=== PATIENT | female | born 1930 | race Caucasian/White ===

== ENCOUNTER 2016-12-23 07:02 | Inpatient (IN) | payer OTHER, MEDICARE ==
[~2016-12-23] VITALS: Ht 152.4 cm; Wt 78.3 kg
[2016-12-23] VITALS (16 sets, daily range): BP systolic 104–164; BP diastolic 56–82; PULSE 80–117; RESP 13–20; TEMP 98.7–102.2; O2SAT 93–100
[~2016-12-23 07:02] MED LIST: AMIT10TA13 PO; AMLO5TAB96 PO; ASPI81 PO; FISH1000 PO; LASI20TA PO; LEVO.05 PO; LOSA25TA31 PO; MELO15TA2 PO; NAPR500 PO; ROSU10 PO; TAB-TAB PO
[2016-12-23] MEDS ORDERED: ONDANSETRON HCL 4 MG/2 ML VIAL IV PUSH ONE (07:15)
[2016-12-23] MEDS ORDERED: MORPHINE SULFATE 2 MG/ML INJ IV PUSH ONE (07:15)
--- NOTE | 2016-12-23 07:26 | PD ---
HPI Chief Complaint: Edema Time Seen by Provider: 07:06 Travel History International Travel<30 days: No Contact w/Intl Traveler<30days: No Traveled to known affect area: No History of Present Illness HPI 86 years old female complains of bilateral lower extremity pain and swelling. Patient states that the symptoms started about several months ago and got worse today. Patient was recently diagnosed with brachial plexitis and was put on prednisone. Patient still taking prednisone as directed. Patient has history hypertension status post mitral valve replacement and hypothyroidism. Patient status post pacemaker placement. Patient also complains of bruising to the arms and legs recently. Patient denies any recent injury. Patient's daughter states that patient started having pain on the upper extremity since September 2016. Patient was admitted to the hospital in [place] at that time. Patient was diagnosed with brachial plexitis. Patient is allergic to dye and has pacemaker placement and patient only had CT without contrast of the brain in the spine. Patient has been on decreasing prednisone dose since then. Patient started on prednisone 10 mg by mouth daily now. Patient has been seen by neurologist Dr. 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 Patient had blood test done recently by Dr. Marquez and Dr. Munoz. Results are not available. 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) Tobacco Use: No Substance Use: No Allergies-Medications (Allergen,Severity, Reaction): Coded Allergies: Iodinated Contrast- Oral and IV Dye (Unverified Allergy, Severe, EYES SWELLING, 12/23/16) iodine (Unverified Allergy, Severe, EYES SWELLING, 12/23/16) potassium iodide (Unverified Allergy, Severe, EYES SWELLING, 12/23/16) povidone-iodine (Unverified Allergy, Severe, EYES SWELLING, 12/23/16) sodium iodide (Unverified Allergy, Severe, EYES SWELLING, 12/23/16) sodium iodide (Unverified Allergy, Severe, EYES SWELLING, 12/23/16) Uncoded Allergies: IVP DYE (Allergy, Unknown, EYES SWELLING, 05/17/08) Reported Meds & Prescriptions Reported Meds & Active Scripts Active Reported Oxycodone (Oxycodone HCl) 5 Mg Cap 5 Mg PO Q6H PRN Lidocaine Patch 12 HR (Lidocaine) 5 % Patch 1 Patch TOPICAL DAILY Remove patch after 12 hours Tramadol (Tramadol HCl) 50 Mg Tab 50 Mg PO Q12HR PRN Protonix (Pantoprazole Sodium) 40 Mg Tab 40 Mg PO BID Gabapentin 300 Mg Cap 300 Mg PO TID Prednisone 10 Mg Tab 10 Mg PO DAILY Fish Oil + D3 (Fish Oil-Cholecalciferol) 1,200-1,000 Mg-Unit Cap 1 Cap PO DAILY Amitriptyline (Amitriptyline HCl) 10 Mg Tab 10 Mg PO HS Furosemide 20 Mg Tab 20 Mg PO DAILY Rosuvastatin (Rosuvastatin Calcium) 10 Mg Tab 10 Mg PO HS Levothyroxine (Levothyroxine Sodium) 50 Mcg Tab 50 Mcg PO DAILY Losartan (Losartan Potassium) 50 Mg Tab 50 Mg PO DAILY Vitamin D-1000 (Cholecalciferol) 1,000 Unit Tab 1,000 Units PO DAILY Aspirin 325 Mg Tab 325 Mg PO DAILY Metoprolol Tartrate 100 Mg Tab 100 Mg PO BID Review of Systems General / Constitutional: No: Fever Eyes: No: Visual changes HENT: No: Headaches Cardiovascular: No: Chest Pain or Discomfort Respiratory: No: Shortness of Breath Gastrointestinal: No: Abdominal Pain Genitourinary: No: Dysuria Musculoskeletal: Positive: Edema, Pain Skin: No Rash Neurologic: No: Weakness Psychiatric: No: Depression Endocrine: No: Polydipsia Hematologic/Lymphatic: No: Easy Bruising Physical Exam Narrative GENERAL: Well-nourished, well-developed patient. SKIN: Focused skin assessment warm/dry. HEAD: Normocephalic. EYES: No scleral icterus. No injection or drainage. NECK: Supple, trachea midline. No JVD or lymphadenopathy. CARDIOVASCULAR: Regular rate and rhythm without murmurs, gallops, or rubs. RESPIRATORY: Breath sounds equal bilaterally. No accessory muscle use. Few rhonchi at the bases. GASTROINTESTINAL: Abdomen soft, non-tender, nondistended. MUSCULOSKELETAL: No cyanosis, or edema. BACK: Nontender without obvious deformity. No CVA tenderness. Neurologic exam: Patient's awake and alert oriented to person. Patient's hearing impaired. Patient moves all extremities well. No obvious focal neurological deficit. Data Data Last Documented VS Vital Signs Date Time Temp Pulse Resp B/P (MAP) Pulse Ox O2 Delivery O2 Flow Rate FiO2 12/23/16 09:56 108 20 136/64 (88) 98 Nasal Cannula 3.00 12/23/16 07:13 102.2 Orders Orders Electrocardiogram (12/23/16 07:13) Complete Blood Count With Diff (12/23/16 07:13) Comprehensive Metabolic Panel (12/23/16 07:13) B-Type Natriuretic Peptide (12/23/16 07:13) Prothrombin Time / Inr (Pt) (12/23/16 07:13) Act Partial Throm Time (Ptt) (12/23/16 07:13) Urinalysis - C+S If Indicated (12/23/16 07:13) Thyroid Stimulating Hormone (12/23/16 07:13) Chest, Single Ap (12/23/16 07:13) Iv Access Insert/Monitor (12/23/16 07:13) Ecg Monitoring (12/23/16 07:13) Oximetry (12/23/16 07:13) Us Leg Venous Doppler Bilat (12/23/16 07:13) Morphine Inj (Morphine Inj) (12/23/16 07:15) Ondansetron Inj (Zofran Inj) (12/23/16 07:15) Blood Culture (12/23/16 07:16) Lactic Acid Sepsis Protocol (12/23/16 07:16) Urinary Catheter Insert/Apply (12/23/16 07:21) W[place]gren Sedimentation Rate (12/23/16 07:32) Creatine Kinase (Cpk) (12/23/16 07:20) C-Reactive Protein (Crp) (12/23/16 07:20) Urine Culture (12/23/16 07:25) Dextrose 5% In Wate... W/Amiodarone Inj (12/23/16 08:59) Sodium Chloride 0.9% Flush (Ns Flush) (12/23/16 09:00) Vital Signs (Adult) Q15MX4,Q4H (12/23/16 08:59) Cardiac Rhythm TAY.Q8H (12/23/16 08:59) Notify Dr: Other (12/23/16 08:59) Diltiazem Inj (Cardizem Inj) (12/23/16 09:00) Amiodarone Inj (Cordarone Inj) (12/23/16 09:03) Electrocardiogram (12/23/16 08:52) Labs Laboratory Tests Test 12/23/16 07:20 12/23/16 07:25 White Blood Count 16.3 TH/MM3 Red Blood Count 3.36 MIL/MM3 Hemoglobin 9.8 GM/DL Hematocrit 29.9 % Mean Corpuscular Volume 89.1 FL Mean Corpuscular Hemoglobin 29.3 PG Mean Corpuscular Hemoglobin Concent 32.9 % Red Cell Distribution Width 16.6 % Platelet Count 160 TH/MM3 Mean Platelet Volume 7.7 FL Neutrophils (%) (Auto) 70.1 % Lymphocytes (%) (Auto) 22.0 % Monocytes (%) (Auto) 6.5 % Eosinophils (%) (Auto) 0.9 % Basophils (%) (Auto) 0.5 % Neutrophils # (Auto) 11.4 TH/MM3 Lymphocytes # (Auto) 3.6 TH/MM3 Monocytes # (Auto) 1.1 TH/MM3 Eosinophils # (Auto) 0.1 TH/MM3 Basophils # (Auto) 0.1 TH/MM3 CBC Comment DIFF FINAL Differential Comment Erythrocyte Sedimentation Rate 56 mm/hr Prothrombin Time 11.3 SEC Prothromb Time International Ratio 1.0 RATIO Activated Partial Thromboplast Time 26.1 SEC Blood Urea Nitrogen 13 MG/DL Creatinine 0.95 MG/DL Random Glucose 90 MG/DL Total Protein 6.5 GM/DL Albumin 2.8 GM/DL Calcium Level 8.4 MG/DL Alkaline Phosphatase 64 U/L Aspartate Amino Transf (AST/SGOT) 33 U/L Alanine Aminotransferase (ALT/SGPT) 21 U/L Total Bilirubin 0.7 MG/DL Sodium Level 133 MEQ/L Potassium Level 3.6 MEQ/L Chloride Level 93 MEQ/L Carbon Dioxide Level 33.3 MEQ/L Anion Gap 7 MEQ/L Estimat Glomerular Filtration Rate 56 ML/MIN Lactic Acid Level 1.3 mmol/L Total Creatine Kinase 50 U/L C-Reactive Protein 13.00 MG/DL B-Type Natriuretic Peptide 769 PG/ML Thyroid Stimulating Hormone 3rd Gen 6.330 uIU/ML Urine Color YELLOW Urine Turbidity HAZY Urine pH 5.5 Urine Specific [place] 1.011 Urine Protein TRACE mg/dL Urine Glucose (UA) NEG mg/dL Urine Ketones NEG mg/dL Urine Occult Blood NEG Urine Nitrite NEG Urine Bilirubin NEG Urine Urobilinogen 8.0 MG/DL Urine Leukocyte Esterase SMALL Urine RBC 2 /hpf Urine Amorphous Sediment RARE Urine Bacteria MOD /hpf Microscopic Urinalysis Comment CATH-CULTURE IND MDM Medical Decision Making Medical Screen Exam Complete: Yes Emergency Medical Condition: Yes Interpretation(s) Last Impressions Lower Extremity Ultrasound 12/23/16 0713 Signed Impressions: Service Date/Time: Friday, December 23, 2016 08:02 - CONCLUSION: Normal examination. No evidence of DVT Aneesh Bello MD 11:42 AM. Chest x-ray shows mild compensated cardiomegaly. CBC WBC 16.3. Hemoglobin 9.8 hematocrit 29.9. 70 neutrophil. Sedimentation rate 56. Sodium 133. Bicarbonate 33.3. Left Tri[place] 1.3. CK normal. C-reactive protein 13. BNP 769. TSH 6.33. UA small leukocyte. Negative for WBC. Differential Diagnosis Differential diagnosis including dependent edema, DVT, CHF, pneumonia, UTI, sepsis. Narrative Course 86-year-old female with increased pain and swelling lower extremity. Patient on steroids for brachial plexitis. Patient also has chronic extremity pain unknown etiology. Patient on statin. Patient is febrile today. Lasix 40 mg IV. Oxycodone 5/325, one tablet by mouth given. Diagnosis Primary Impression: CHF (congestive heart failure) Qualified Codes: I50.9 - Heart failure, unspecified Additional Impressions: Fever Qualified Codes: R50.9 - Fever, unspecified Tachycardia Admitting Information Admitting Physician Requests: Admit Guilherme Reyes MD Dec 23, 2016 07:26
[2016-12-23] MEDS ORDERED: METO100T PO (07:35)
[2016-12-23] MEDS ORDERED: GABA300C5 PO (07:35)
[2016-12-23] MEDS ORDERED: FURO20TA PO (07:35)
[2016-12-23] MEDS ORDERED: FISHCAP4 PO (07:35)
[2016-12-23] MEDS ORDERED: TRAM50TA PO (07:35)
[2016-12-23] MEDS ORDERED: ASPI325T PO (07:35)
[2016-12-23] MEDS ORDERED: ROSU1TAB6 PO (07:35)
[2016-12-23] MEDS ORDERED: LIDO1PAD52 TOPICAL (07:35)
[2016-12-23] MEDS ORDERED: LEVO50TA4 PO (07:35)
[2016-12-23] MEDS ORDERED: VITA1000 PO (07:35)
[2016-12-23] MEDS ORDERED: PRED10 PO (07:35)
[2016-12-23] MEDS ORDERED: LOSA50TA PO (07:35)
[2016-12-23] MEDS ORDERED: OXYC1CAP PO (07:35)
[2016-12-23] MEDS ORDERED: PROT40TA PO (07:35)
[2016-12-23] MEDS ORDERED: AMIT10TA6 PO (07:35)
[2016-12-23 07:59] LABS: APTT (PATIENT) 26.1 SEC (24.3-30.1); PROTHROMBIN TIME - PATIENT 11.3 SEC (9.8-11.6)
[2016-12-23 08:01] LABS: ALT (GPT) 21 U/L (10-53)
[2016-12-23 08:07] LABS: AUTOMATED NEUTROPHIL # 11.4 TH/MM3 (1.8-7.7); BASOPHIL # 0.1 TH/MM3 (0-0.2); BASOPHIL % 0.5 % (0.0-2.0); EOSINOPHIL # 0.1 TH/MM3 (0-0.4); EOSINOPHIL % 0.9 % (0.0-4.0); HEMATOCRIT 29.9 % (35.0-46.0); HEMO FLAGS DIFF FINAL; LYMPHOCYTE # 3.6 TH/MM3 (1.0-4.8); MEAN CELL VOLUME 89.1 FL (80.0-100.0); MEAN CORPUSCULAR HEMOGLOBIN 29.3 PG (27.0-34.0); MEAN CORPUSCULAR HGB CONC 32.9 % (32.0-36.0); MONO % 6.5 % (0.0-8.0); NEUT % 70.1 % (16.0-70.0); PLATELET COUNT 160 TH/MM3 (150-450); RED BLOOD COUNT 3.36 MIL/MM3 (4.00-5.30); RED CELL DISTRIBUTION WIDTH 16.6 % (11.6-17.2); WHITE BLOOD COUNT 16.3 TH/MM3 (4.0-11.0)
[2016-12-23 08:17] LABS: ALKALINE PHOSPHATASE 64 U/L (45-117); TOTAL BILIRUBIN ADULT 0.7 MG/DL (0.2-1.0)
[2016-12-23 08:23] LABS: BACTERIA, URINE MOD /hpf; BLOOD, URINE NEG (NEG); COMMENT (UR) CATH-CULTURE IND; CULTURE IF INDICATED CATH CULTURE IND; GLUCOSE,URINE NEG (NEG); KETONE, URINE NEG (NEG); NITRITE,URINE NEG (NEG); PH, URINE 5.5 (5.0-8.5); URINE COLOR YELLOW (YELLW/STRAW)
[2016-12-23 08:26] LABS: ANION GAP 7 MEQ/L (5-15); AST (GOT) 33 U/L (15-37); BICARBONATE 33.3 MEQ/L (21.0-32.0); BLOOD UREA NITROGEN 13 MG/DL (7-18); CHLORIDE 93 MEQ/L (98-107); GLOMERULAR FILTRATION RATE 56 ML/MIN (>89); SODIUM (NA) 133 MEQ/L (136-145)
[2016-12-23 08:27] LABS: CREATINE KINASE 50 U/L (26-192); POTASSIUM 3.6 MEQ/L (3.5-5.1)
--- NOTE | 2016-12-23 08:51 | RADRPT ---
EXAM DATE/TIME: 12/23/2016 08:02 [facility] COMPARISON: No previous studies available for comparison. INDICATIONS : Bilateral leg pain and swelling. MEDICAL HISTORY : Hypertension. Hypercholesterolemia. SURGICAL HISTORY : Appendectomy. Left and right shoulder surgery. Right knee surgery. ENCOUNTER: Initial ACUITY: 3 months PAIN SCORE: 8/10 LOCATION: Bilateral leg. TECHNIQUE: Venous ultrasound of the left and right leg was performed from the inguinal ligament to the proximal calf. Real-time, color Doppler and spectral tracing, compression and augmentation techniques were us ed. FINDINGS: RIGHT LEG: There is normal compressibility of the deep venous system from the inguinal region to the proximal ca lf. No echogenic clot is seen in the lumen of the common femoral, femoral, popliteal, and posterior tibial veins. There is a normal response of the venous system to proximal and distal augmentation an d respiration. LEFT LEG: There is normal compressibility of the deep venous system from the inguinal region to the proximal ca lf. No echogenic clot is seen in the lumen of the common femoral, femoral, popliteal, and posterior tibial veins. There is a normal response of the venous system to proximal and distal augmentation an d respiration. CONCLUSION: Normal examination. No evidence of DVT Aneesh Bello MD on December 23, 2016 at 8:48 Board Certified Radiologist. This report was verified electronically.
[2016-12-23] MEDS ORDERED: AMIODARONE INJ 150 MG in DEXTROSE 5% IN WATER 100ML INJ 97 ML IV ONE ×2 (08:59)
[2016-12-23] MEDS ORDERED: SODIUM CHLORIDE 0.9% FLUSH 10 ML FLUSH IVF PRN (09:00)
[2016-12-23] MEDS ORDERED: DILTIAZEM INJ 125 MG in SODIUM CHLORIDE 0.9% INJ 100 ML IV PRN (09:00)
[2016-12-23] MEDS ORDERED: AMIODARONE HCL 150 MG/3 ML VIAL ONE (09:03)
--- NOTE | 2016-12-23 09:30 | RADRPT ---
EXAM DATE/TIME: 12/23/2016 09:06 [facility] COMPARISON: No previous studies available for comparison. INDICATIONS : Shortness of breath. MEDICAL HISTORY : Hypertension. Hypercholesterolemia. SURGICAL HISTORY : Pacemaker. CABG. Appendectomy. Left and right shoulder surgery. Right knee surgery. ENCOUNTER: Initial ACUITY: 1 day PAIN SCORE: 0/10 LOCATION: Bilateral chest FINDINGS: Pacer implanted on the left. Sternal wires from previous bypass are noted. Mild compensated cardiom egaly is evident. Evidence for previous shoulder arthroplasty is noted. CONCLUSION: Pacer, mild compensated cardiomegaly. Negative for pneumothorax. Homero Guerra MD FACR on December 23, 2016 at 9:16 Board Certified Radiologist. This report was verified electronically.
[2016-12-23] MEDS ORDERED: oxyCODONE/ACETAMINOPHEN 5 MG/325 MG TAB PO ONE (11:45)
[2016-12-23] MEDS ORDERED: ACETAMINOPHEN 325 MG TAB PO PRN ×2 (12:45)
[2016-12-23] MEDS ORDERED: SODIUM CHLORIDE 0.9% FLUSH 10 ML FLUSH IV FLUSH PRN (12:45)
[2016-12-23] MEDS ORDERED: NALOXONE HCL 0.4 MG/ML AMP IV PUSH PRN (12:45)
[2016-12-23] MEDS ORDERED: RESP: ALBUTEROL 2.5 MG/IPRATROPIUM 0.5 MG NEB (PRN) NEB (12:45)
[2016-12-23] MEDS ORDERED: MAGNESIUM HYDROXIDE SUSP 30 ML CUP PO PRN (12:45)
[2016-12-23] MEDS ORDERED: ONDANSETRON HCL 4 MG/2 ML VIAL IVP PRN (12:45)
--- NOTE | 2016-12-23 13:34 | HHI.HP ---
[facility] Service [facility] Primary Care Physician Ramona Munoz MD Admission Diagnosis fever. Tachycardia. CHF. PolyMyositis Diagnoses: Chief Complaint: Bilateral lower extremity pain, restlessness, fever Travel History International Travel<30 Days: No Contact w/Intl Traveler <30 Da: No Traveled to Known Affected Are: No Sepsis Criteria SIRS Criteria (2 or more): Temp > 100.9 or < 96.8, Heart rate over 90, WBC > 07478, < 4000 or > 10% bands Sepsis Criteria (SIRS+source): Infect source susp/known Criteria Outcome: Meets SIRS criteria, Meets sepsis criteria History of Present Illness Written by Hector Oconnell, acting as scribe for Dr. Gray on 12/23/16 at 13: 35. Patient is an 86-year-old female with primary medical history of hypothyroidism , HTN, CHF who came in due to hospital brought in by daughter secondary to complaints of bilateral lower extremity pain, swelling, decline in mental status. Patient is a poor historian. Daughter at the bedside providing much of the history. Patient was diagnosed in September, in [place] for brachial plexitis were in she was placed on prednisone. She started on prednisone 40 mg and now is tapered to 10 mg daily. She was last seen by Dr. 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 She was worked up for Lyme's disease and nerve test. Her gabapentin was decreased in dose secondary to drowsiness. However her daughter noted that she has increasing bilateral lower extremity swelling and pain also she noted increase restlessness of her extremities that she brought her to the hospital. She is usually very mobile unable to walk using her walker however yesterday and today patient is unable to stand up and walk. Patient came to the ED febrile at 102.2, HR 117, white count 16.3, CRP 13.0, hyponatremic 133. Awake and alert able to follow commands. Denies SOB/ dyspnea. Denies chest pain, palpitations. Denies fevers, chills, n/v/d. Denies dysuria. Daughter reports foul odor urine. Review of Systems ROS Limitations: Poor Historian Past Family Social History Past Medical History Hypothyroidism HTN HLD A. fib Past Surgical History Permanent pacemaker Status post mitral valve repair in 2014 Appendectomy Hysterectomy 2 shoulder surgery Right knee replacement Reported Medications Reported Meds & Active Scripts Active Reported Oxycodone (Oxycodone HCl) 5 Mg Cap 5 Mg PO Q6H PRN Lidocaine Patch 12 HR (Lidocaine) 5 % Patch 1 Patch TOPICAL DAILY Remove patch after 12 hours Tramadol (Tramadol HCl) 50 Mg Tab 50 Mg PO Q12HR PRN Protonix (Pantoprazole Sodium) 40 Mg Tab 40 Mg PO BID Gabapentin 300 Mg Cap 300 Mg PO TID Prednisone 10 Mg Tab 10 Mg PO DAILY Fish Oil + D3 (Fish Oil-Cholecalciferol) 1,200-1,000 Mg-Unit Cap 1 Cap PO DAILY Amitriptyline (Amitriptyline HCl) 10 Mg Tab 10 Mg PO HS Furosemide 20 Mg Tab 20 Mg PO DAILY Rosuvastatin (Rosuvastatin Calcium) 10 Mg Tab 10 Mg PO HS Levothyroxine (Levothyroxine Sodium) 50 Mcg Tab 50 Mcg PO DAILY Losartan (Losartan Potassium) 50 Mg Tab 50 Mg PO DAILY Vitamin D-1000 (Cholecalciferol) 1,000 Unit Tab 1,000 Units PO DAILY Aspirin 325 Mg Tab 325 Mg PO DAILY Metoprolol Tartrate 100 Mg Tab 100 Mg PO BID Allergies: Coded Allergies: Iodinated Contrast- Oral and IV Dye (Unverified Allergy, Severe, EYES SWELLING, 12/23/16) iodine (Unverified Allergy, Severe, EYES SWELLING, 12/23/16) potassium iodide (Unverified Allergy, Severe, EYES SWELLING, 12/23/16) povidone-iodine (Unverified Allergy, Severe, EYES SWELLING, 12/23/16) sodium iodide (Unverified Allergy, Severe, EYES SWELLING, 12/23/16) sodium iodide (Unverified Allergy, Severe, EYES SWELLING, 12/23/16) Uncoded Allergies: IVP DYE (Allergy, Unknown, EYES SWELLING, 05/17/08) Active Ordered Medications Current Medications Medications (Trade) Dose Ordered Sig/Yuly Route Start Time Stop Time Status Last Admin Diltiazem HCl 125 mg/Sodium Chloride 125 ml @ 5 mls/hr TITRATE PRN IV 12/23/16 09:00 12/23/16 09:27 (NS Flush) 2 ml UNSCH PRN IV FLUSH 12/23/16 12:45 (NS Flush) 2 ml BID IV FLUSH 12/23/16 21:00 (Tylenol) 650 mg Q4H PRN PO 12/23/16 12:45 (Zofran Inj) 4 mg Q6H PRN IVP 12/23/16 12:45 (Tylenol) 650 mg Q6H PRN PO 12/23/16 12:45 (Narcan Inj) 0.4 mg UNSCH PRN IV PUSH 12/23/16 12:45 (Milk Of Magnesia Liq) 30 ml Q12H PRN PO 12/23/16 12:45 (Duoneb Neb) 1 ampule Q2HR NEB PRN NEB 12/23/16 12:45 Piperacillin Sod/ Tazobactam Sod 50 ml @ 100 mls/hr Q8H IV 12/23/16 15:00 Pharmacy Profile Note 0 ml @ 0 mls/hr UNSCH OTHER 12/23/16 13:45 (Lactinex) 1 tab Q12HR PO 12/23/16 21:00 (Elavil) 10 mg HS PO 12/23/16 21:00 (Aspirin) 325 mg DAILY PO 12/24/16 09:00 (Neurontin) 300 mg TID PO 12/23/16 18:00 (Synthroid) 50 mcg DAILY@0600 PO 12/24/16 06:00 (Cozaar) 50 mg DAILY PO 12/24/16 09:00 (Lopressor) 100 mg BID PO 12/23/16 21:00 (Roxicodone) 5 mg Q6H PRN PO 12/23/16 13:45 (Protonix) 40 mg BID PO 12/23/16 21:00 (Deltasone) 10 mg DAILY PO 12/24/16 09:00 (Lasix) 20 mg DAILY PO 12/24/16 09:00 Vancomycin HCl 1250 mg/Sodium Chloride 262.5 ml @ 262.5 mls/ hr ONCE ONCE IV 12/23/16 16:00 12/23/16 16:59 Family History Father had a stroke Mother had Alzheimer's disease Social History Denies alcohol use Denies tobacco use. Denies illicit drug use Physical Exam Vital Signs Vital Signs Date Time Temp Pulse Resp B/P (MAP) Pulse Ox O2 Delivery O2 Flow Rate FiO2 12/23/16 13:09 90 18 117/56 (76) 97 Room Air 12/23/16 09:56 108 20 136/64 (88) 98 Nasal Cannula 3.00 12/23/16 09:41 106 20 121/59 (79) 96 Nasal Cannula 3.00 12/23/16 09:27 94 135/60 12/23/16 09:25 91 20 135/60 (85) 96 Nasal Cannula 3.00 12/23/16 09:23 90 18 104/60 (75) 96 Nasal Cannula 3.00 12/23/16 09:20 155 104/60 12/23/16 08:30 102 20 164/82 (109) 96 Nasal Cannula 3.00 12/23/16 07:23 93 Nasal Cannula 12/23/16 07:13 102.2 117 20 153/75 (101) 93 Nasal Cannula 3.00 Physical Exam GENERAL: This is an obese, well-developed patient, in no apparent distress. SKIN: Warm and dry. Multiple hyperpigmented lesion BUE and BLE. HEAD: Normocephalic. EYES: Pupils equal round and reactive. Extraocular motions intact. No scleral icterus. No injection or drainage. ENT: Nose without bleeding. Throat without erythema. Uvula midline. Airway patent. NECK: Trachea midline. Supple. Garcia face. CARDIOVASCULAR: Regular rate and rhythm without murmurs, gallops, or rubs. RESPIRATORY: Clear to auscultation. Breath sounds equal bilaterally. No wheezes , rales, or rhonchi. GASTROINTESTINAL: Abdomen soft, non-tender, nondistended. No hepato-splenomegaly , or palpable masses. No guarding. MUSCULOSKELETAL: Extremities without clubbing, cyanosis, +2 BLE edema. Pulses palpable. NEUROLOGICAL: Awake and alert. Motor and sensory grossly within normal limits. Normal speech. Laboratory Laboratory Tests Test 12/23/16 07:20 12/23/16 07:25 White Blood Count 16.3 Red Blood Count 3.36 Hemoglobin 9.8 Hematocrit 29.9 Mean Corpuscular Volume 89.1 Mean Corpuscular Hemoglobin 29.3 Mean Corpuscular Hemoglobin Concent 32.9 Red Cell Distribution Width 16.6 Platelet Count 160 Mean Platelet Volume 7.7 Neutrophils (%) (Auto) 70.1 Lymphocytes (%) (Auto) 22.0 Monocytes (%) (Auto) 6.5 Eosinophils (%) (Auto) 0.9 Basophils (%) (Auto) 0.5 Neutrophils # (Auto) 11.4 Lymphocytes # (Auto) 3.6 Monocytes # (Auto) 1.1 Eosinophils # (Auto) 0.1 Basophils # (Auto) 0.1 CBC Comment DIFF FINAL Differential Comment Erythrocyte Sedimentation Rate 56 Prothrombin Time 11.3 Prothromb Time International Ratio 1.0 Activated Partial Thromboplast Time 26.1 Blood Urea Nitrogen 13 Creatinine 0.95 Random Glucose 90 Total Protein 6.5 Albumin 2.8 Calcium Level 8.4 Alkaline Phosphatase 64 Aspartate Amino Transf (AST/SGOT) 33 Alanine Aminotransferase (ALT/SGPT) 21 Total Bilirubin 0.7 Sodium Level 133 Potassium Level 3.6 Chloride Level 93 Carbon Dioxide Level 33.3 Anion Gap 7 Estimat Glomerular Filtration Rate 56 Lactic Acid Level 1.3 Total Creatine Kinase 50 C-Reactive Protein 13.00 B-Type Natriuretic Peptide 769 Thyroid Stimulating Hormone 3rd Gen 6.330 Urine Color YELLOW Urine Turbidity HAZY Urine pH 5.5 Urine Specific [place] 1.011 Urine Protein TRACE Urine Glucose (UA) NEG Urine Ketones NEG Urine Occult Blood NEG Urine Nitrite NEG Urine Bilirubin NEG Urine Urobilinogen 8.0 Urine Leukocyte Esterase SMALL Urine RBC 2 Urine Amorphous Sediment RARE Urine Bacteria MOD Microscopic Urinalysis Comment CATH-CULTURE IND Date/Time Source Procedure Growth Status 12/23/16 07:18 Blood Peripheral Aerobic Blood Culture Pending Received 12/23/16 07:18 Blood Peripheral Anaerobic Blood Culture Pending Received 12/23/16 07:25 Urine Catheterized Urine Urine Culture Pending Received Result Diagram: 12/23/[id number]/[id number]/[id number] Imaging Last Impressions Lower Extremity Ultrasound 12/23/16712 Signed Impressions: Service Date/Time: Friday, December 23, 2016 08:02 - CONCLUSION: Normal examination. No evidence of DVT Aneesh Bello MD Chest X-Ray 12/23/16712 Signed Impressions: Service Date/Time: Friday, December 23, 2016 09:06 - CONCLUSION: Pacer, mild compensated cardiomegaly. Negative for pneumothorax. Homero Guerra MD FACR Caprini VTE Risk Assessment Caprini VTE Risk Assessment: Mod/High Risk (score >= 2) Caprini Risk Assessment Model Point Value = 1 Point Value = 2 Point Value = 3 Point Value = 5 Age 41-60 Minor surgery BMI > 25 kg/m2 Swollen legs Varicose veins or History of unexplained or recurrent spontaneous Oral contraceptives or hormone replacement Sepsis (< 1 month) Serious lung disease, including pneumonia (< 1 month) Abnormal pulmonary function Acute myocardial infarction Congestive heart failure (< 1 month) History of inflammatory bowel disease Medical patient at bed rest Age 61-74 Arthroscopic surgery Major open surgery (> 45 min) Laparoscopic surgery (> 45 min) Malignancy Confined to bed (> 72 hours) Immobilizing plaster cast Central venous access Age >= 75 History of VTE Family history of VTE Factor V Leiden Prothrombin [id number] Lupus anticoagulant Anticardiolipin antibodies Elevated serum homocysteine Heparin-induced thrombocytopenia Other congenital or acquired thrombophilia Stroke (< 1 month) Elective arthroplasty Hip, pelvis, or leg fracture Acute spinal cord injury (< 1 month) Prophylaxis Regimen Total Risk Factor Score Risk Level Prophylaxis Regimen 0-1 Low Early ambulation 2 Moderate Order ONE of the following: *Sequential Compression Device (SCD) *Heparin 5000 units SQ BID 3-4 Higher Order ONE of the following medications: *Heparin 5000 units SQ TID *Enoxaparin/Lovenox 40 mg SQ daily (WT < 150 kg, CrCl > 30 mL/min) *Enoxaparin/Lovenox 30 mg SQ daily (WT < 150 kg, CrCl > 10-29 mL/min) *Enoxaparin/Lovenox 30 mg SQ BID (WT < 150 kg, CrCl > 30 mL/min) AND/OR *Sequential Compression Device (SCD) 5 or more Highest Order ONE of the following medications: *Heparin 5000 units SQ TID (Preferred with Epidurals) *Enoxaparin/Lovenox 40 mg SQ daily (WT < 150 kg, CrCl > 30 mL/min) *Enoxaparin/Lovenox 30 mg SQ daily (WT < 150 kg, CrCl > 10-29 mL/min) *Enoxaparin/Lovenox 30 mg SQ BID (WT < 150 kg, CrCl > 30 mL/min) AND *Sequential Compression Device (SCD) Assessment and Plan Problem List: (1) Sepsis ICD Code: A41.9 - Sepsis, unspecified organism (2) UTI (urinary tract infection) ICD Code: N39.0 - Urinary tract infection, site not specified (3) CHF (congestive heart failure) ICD Code: I50.9 - Heart failure, unspecified Status: Acute Assessment and Plan Patient is an 86-year-old female with primary medical history of hypothyroidism , HTN, CHF who came in due to hospital brought in by daughter secondary to complaints of bilateral lower extremity pain, swelling, decline in mental status. Sepsis, severe UTI - Febrile 102.2, heart rate 112, WBC 16.3 - UA positive, cultures pending follow results - ESR 56, CRP 13 - Check Blood cultures, check lactic acid - Start IV vancomycin and Zosyn - Patient has been on prolonged use of prednisone, immunocompromised. 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 Marquez for Lyme's disease, nerve tests, other autoimmune disorders - ESR 56, CRP 13 - Continue prednisone 10 mg daily, gabapentin, pain management with morphine sulfate IV, oxycodone - Consult neurology for further recommendations A. fib with RVR - Reported to have heart rate of 200s - Patient has a permanent pacemaker and was interrogated. Interrogation was within normal - Patient was given IV amiodarone, started on Cardizem drip titrate to heart <100 - Consult cardiology for further evaluation CHF, systolic, acute exacerbation Bilateral lower extremity edema - Chest x-ray showed pacer, mild compensated cardiomegaly. Negative for pneumothorax - BNP 769 - Lasix PO - 2-D echo ordered HTN HLD - Continue metoprolol 100 mg twice a day, losartan 50 mg daily - Monitor BP trend Hypothyroidism - Continued home medications levothyroxine Rule out DVT Bilateral lower extremity edema, pain Generalized weakness, unable to ambulate - Doppler studies of bilateral lower extremity normal examination evidence of DVT. - Physical therapy eval and treat Consult case management for assistance in discharge planning DVT prop SCDs GI prop pantoprazole This note was transcribed by jaron Oconnell. I, Dr. Diomedes Gray personally performed the history, physical exam, and medical decision making; and confirmed the accuracy of the information in the transcribed note. Authenticated by Dr. Diomedes Gray on 12/23/16 at 13:35 Code Status Full code Discussed Condition With Patient, nursing, M.D. attending Physician Certification 2 Midnight Certification Type: Admission for Inpatient Services Order for Inpatient Services The services are ordered in accordance with Medicare regulations or non- Medicare payer requirements, as applicable. In the case of services not specified as inpatient-only, they are appropriately provided as inpatient services in accordance with the 2-midnight benchmark. Estimated LOS (days): 3 days is the estimated time the patient will need to remain in the hospital, assuming treatment plan goals are met and no additional complications. Post-Hospital Plan: Not yet determined Problem Qualifiers (1) CHF (congestive heart failure): Qualified Codes: I50.9 - Heart failure, unspecified Hector Ramírez Dec 23, 2016 13:34 Diomedes Gray MD Dec 23, 2016 13:35
[2016-12-23] MEDS ORDERED: Vancomycin Consult Pharmacy 1 EA OTHER SCH (13:45)
[2016-12-23] MEDS ORDERED: VANCOMYCIN INJ 1,250 MG in SODIUM CHLOR 0.9% 250 ML INJ 250 ML IV ONE (16:00)
[2016-12-23] MEDS ORDERED: VANCOMYCIN INJ 1,000 MG in SODIUM CHLOR 0.9% 250 ML INJ 250 ML IV SCH (16:00)
[2016-12-23] MEDS: PIPERACIL-TAZO 3.375 GM PREMIX 50 ML IV SCH ×2 (16:10→23:17)
--- NOTE | 2016-12-23 16:11 | EKG ---
Date Performed: 12/23/2016 Time Performed: 07:59:48 PTAGE: 86 years EKG: SINUS TACHYCARDIA MARKED LEFT AXIS DEVIATION LEFT BUNDLE BRANCH BLOCK Compared to previous tracing, Left bundle branch block is now present and the rate is faster ABNORMAL ECG PREVIOUS TRACING : 03/28/2005 10.52 DOCTOR: Rick Sánchez Interpretating Date/Time 12/23/2016 16:10:18
--- NOTE | 2016-12-23 16:12 | EKG ---
Date Performed: 12/23/2016 Time Performed: 08:52:50 PTAGE: 86 years EKG: ATRIAL FIBRILLATION WITH RAPID VENTRICULAR RESPONSE MARKED LEFT AXIS DEVIATION INTRAVENTRIC ULAR CONDUCTION DELAY Compared to previous tracing atrial fibrillation With rapid ventricular respons e has replaced Sinus rhythm ABNORMAL ECG PREVIOUS TRACING : 12/23/2016 07.59 DOCTOR: Rick Sánchez Interpretating Date/Time 12/23/2016 16:10:45
--- NOTE | 2016-12-23 17:34 | ECHRPT ---
Indication: afib/flutter CONCLUSIONS Technically difficult study. Normal left ventricular size. Moderate concentric left ventricular hypertrophy. The left ventricular systolic function is [id number] reduced with an estimated ejection fra ction in the range of 35-40%. The left ventricle is not well visualized. The aortic root and proximal ascending aorta are not well visualized. No mitral valve stenosis. No mitral valve regurgitation. Normally functioning mitral valve bioprosthesis. The mitral valve area by Pressure Halftime Method is 2.2 cm. The aortic valve is not well visualized. Mild thickening of the aortic valve leaflets. Trace aortic valve regurgitation. Aortic valve mean gradient is 14 mmHg. Aortic valve area is 0.35 cm. Moderate to severe aortic valve stenosis. Severely reduced aortic valve area with low gradient aort ic stenosis which may be secondary to cardiomyopathy. BP: / HR: Rhythm: MEASUREMENTS (Male / Female) Normal Values Technical Quality:Technically difficult study 2D ECHO LV Diastolic Diameter PLAX 3.3 cm 4.2 - 5.9 / 3.9 - 5.3 cm LV Systolic Diameter PLAX 2.7 cm IVS Diastolic Thickness 2.8 cm 0.6 - 1.0 / 0.6 - 0.9 cm LVPW Diastolic Thickness 1.1 cm 0.6 - 1.0 / 0.6 - 0.9 cm LV Relative Wall Thickness 1.2 RV Internal Dim ED PLAX 1.9 cm LVOT Diameter 1.0 cm M-MODE Aortic Root Diameter MM 3.1 cm LA Systolic Diameter MM 5.1 cm LA Ao Ratio MM 1.6 AV Cusp Separation MM 1.3 cm DOPPLER AV Peak Velocity 263.0 cm/s AV Peak Gradient 27.7 mmHg AV Mean Gradient 14.0 mmHg AV Velocity Time Integral 46.0 cm LVOT Peak Velocity 157.0 cm/s LVOT Peak Gradient 9.9 mmHg LVOT Velocity Time Integral 20.3 cm AV Area Cont Eq vti 0.3 cm AV Area Cont Eq pk 0.5 cm MV Area PHT 2.3 cm Mitral E Point Velocity 111.0 cm/s Mitral A Point Velocity 138.0 cm/s Mitral E to A Ratio 0.8 LV E' Lateral Velocity 5.0 cm/s Mitral E to LV E' Lateral Ratio 22.3 LV E' Septal Velocity 4.4 cm/s Mitral E to LV E' Septal Ratio 25.3 TR Peak Velocity 276.0 cm/s TR Peak Gradient 30.5 mmHg Right Atrial Pressure 10.0 mmHg Pulmonary Artery Systolic Pressu 40.5 mmHg Right Ventricular Systolic Press 40.5 mmHg FINDINGS LEFT VENTRICLE Normal left ventricular size. Moderate concentric left ventricular hypertrophy. The left ventricular systolic function is wupytzxs-[id number] reduced with an estimated ejection fra ction in the range of 35-40%. The left ventricle is not well visualized. RIGHT VENTRICLE Normal right ventricular size and systolic function. LEFT ATRIUM The left atrial size is normal. RIGHT ATRIUM The right atrial size is normal. ATRIAL SEPTUM Normal atrial septal thickness without atrial level shunting by limited color doppler interrogation. AORTA The aortic root and proximal ascending aorta are not well visualized. MITRAL VALVE No mitral valve stenosis. No mitral valve regurgitation. Normally functioning mitral valve bioprosthesis. The mitral valve area by Pressure Halftime Method is 2.2 cm. AORTIC VALVE The aortic valve is not well visualized. Mild thickening of the aortic valve leaflets. Trace aortic valve regurgitation. Aortic valve mean gradient is 14 mmHg. Aortic valve area is 0.35 cm. Moderate to severe aortic valve stenosis. Severely reduced aortic valve area with low gradient aort ic stenosis which may be secondary to cardiomyopathy. TRICUSPID VALVE Structurally normal tricuspid valve. No tricuspid valve stenosis or regurgitation. PULMONARY VALVE No pulmonary valve regurgitation or stenosis. VESSELS The inferior vena cava is normal in size. PERICARDIUM No pericardial effusion. Gurdeep Mendoza MD, FACC (Electronically Signed) Final Date:23 December 2016 17:33
[2016-12-23] MEDS: GABAPENTIN 300 MG CAP PO SCH (18:50)
[2016-12-23] MEDS ORDERED: CHLORHEXIDINE GLUCONATE 2 % 1 PACK (2 CLOTHS)(extra cloths) TOPICAL PRN (19:30)
[2016-12-23] MEDS: LACTOBACILLUS ACIDOPHILUS TAB PO SCH (21:17)
[2016-12-23] MEDS: AMITRIPTYLINE HCL 10 MG TAB PO SCH (21:17)
[2016-12-23] MEDS: METOPROLOL TARTRATE 100 MG TAB PO SCH (21:17)
[2016-12-23] MEDS: SODIUM CHLORIDE 0.9% FLUSH 10 ML FLUSH IV FLUSH SCH (21:17)
[2016-12-23] MEDS: PANTOPRAZOLE SOD 40 MG DELAYED RELEASE TAB PO SCH (21:17)
--- NOTE | 2016-12-23 21:31 | RADRPT ---
EXAM DATE/TIME: 12/23/2016 20:42 [facility] COMPARISON: No previous studies available for comparison. INDICATIONS : Evaluate for spinal stenosis. RADIATION DOSE: 42.99 CTDIvol (mGy) MEDICAL HISTORY : Cardiovascular disease. Hypertension. SURGICAL HISTORY : Appendectomy. CABGBilateral shoulder replacements ENCOUNTER: Initial ACUITY: 1 day PAIN SCALE: 7/10 LOCATION: neck TECHNIQUE: Volumetric scanning of the cervical spine was performed. Multiplanar reconstructions in the sagittal, coronal and oblique axial planes were performed. Using automated exposure control and adjustment o f the mA and/or kV according to patient size, radiation dose was kept as low as reasonably achievable to obtain optimal diagnostic quality images. DICOM format image data is available electronically f or review and comparison. FINDINGS: Sagittal images demonstrate normal vertebral body alignment and curvature. The odontoid is intact. Th e occipital condyles and lateral masses of C1 are intact. Axial images were performed from C2-C3 to C7-T1. There is multilevel disc space narrowing and marginal osteophyte formation maximal at C6-C7. 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 The re is calcification of the transverse ligament without stenosis. C2-C3: There is no evidence of disc protrusion or spinal canal stenosis. There is mild facet arthritis on th e left. The neural foramina are clear bilaterally. C3-C4: There is no evidence of disc protrusion or spinal canal stenosis. There is mild facet arthritis bilat erally. There is mild left sided neural foraminal narrowing. C4-C5: There is no evidence of disc protrusion or spinal canal stenosis. There is mild facet arthritis on th e left. There is moderate neural foraminal narrowing on the left. There is uncovertebral joint hyper trophy on left side. C5-C6: There is osteophytic ridging along the posterior aspect of vertebral body. There is mild spinal canal stenosis. There is mild neural foraminal narrowing bilaterally. C6-C7: There is osteophytic ridging asymmetric to the left. There is uncovertebral joint hypertrophy on left side. There is severe neural foraminal narrowing on the left. There is no significant spinal canal s tenosis. C7-T1: No significant abnormalities identified. CONCLUSION: 1. Moderate degenerative changes as described above. There is no evidence of acute fracture. Rick Figureoa MD on December 23, 2016 at 21:26 Board Certified Radiologist. This report was verified electronically.
--- NOTE | 2016-12-23 21:36 | RADRPT ---
EXAM DATE/TIME: 12/23/2016 20:48 [facility] COMPARISON: No previous studies available for comparison. INDICATIONS : Evaluate fro spinal stenosis. RADIATION DOSE: 54.02 CTDIvol (mGy) ; Combined studies - Thoracic Spine/Lumbar Spine MEDICAL HISTORY : Cardiovascular disease. Hypertension. SURGICAL HISTORY : Appendectomy. CABGBilateral shoulder replacement ENCOUNTER: Initial ACUITY: 1 day PAIN SCALE: 7/10 LOCATION: lumbar TECHNIQUE: Volumetric scanning of the lumbar spine was performed. Multiplanar reconstructions in the sagittal, coronal and oblique axial planes were performed. Using automated exposure control and adjustment of the mA and/or kV according to patient size, radiation dose was kept as low as reasonably achievable t o obtain optimal diagnostic quality images. DICOM format image data is available electronically for review and comparison. FINDINGS: Sagittal images demostrate normal vertebral body alignment and curvature. No fractures are identified . Axial images performed from T12-L1 through L5-S1. There is multilevel disc space narrowing and asiya inal osteophyte formation maximal at L5-S1. T12-L1: No significant abnormalities identified. L1-L2: There is no evidence of disc protrusion or spinal canal stenosis. There is mild facet arthritis bilat erally. L2-L3: There is broad-based annular bulge of disc. There is moderate facet arthritis bilaterally with ligame ntum flavum hypertrophy. There is moderate spinal canal stenosis. L3-L4: There is no evidence of disc protrusion or spinal canal stenosis. There is moderate facet arthritis b ilaterally with ligamentum flavum hypertrophy. There is mild spinal canal stenosis. L4-L5: There is mild annular bulge of the disc. There is severe facet arthritis bilaterally. There is mild n eural foraminal narrowing bilaterally. There is no significant spinal canal stenosis. L5-S1: There is mild annular bulge of the disc. There is moderate facet arthritis bilaterally with ligamentu m flavum hypertrophy. There is mild neural foraminal narrowing bilaterally. CONCLUSION: 1. Moderate degenerative changes as described above. There is no evidence of acute fracture. 2. Moderate spinal canal stenosis at L2-L3. Rick Figueroa MD on December 23, 2016 at 21:30 Board Certified Radiologist. This report was verified electronically.
--- NOTE | 2016-12-23 21:52 | RADRPT ---
EXAM DATE/TIME: 12/23/2016 20:48 [place] COMPARISON: No previous studies available for comparison. INDICATIONS : Evaluate fro spinal stenosis. RADIATION DOSE: 54.02 CTDIvol (mGy) ; Combined studies - Thoracic Spine/Lumbar Spine MEDICAL HISTORY : Cardiovascular disease. Hypertension. SURGICAL HISTORY : Appendectomy. CABGBilateral shoulder replacement ENCOUNTER: Initial ACUITY: 1 day PAIN SCALE: 7/10 LOCATION: thoracic TECHNIQUE: Volumetric scanning of the thoracic spine was performed. Multiplanar reconstructions in the sagittal , coronal and oblique axial planes were performed. Using automated exposure control and adjustment o f the mA and/or kV according to patient size, radiation dose was kept as low as reasonably achievable to obtain optimal diagnostic quality images. DICOM format image data is available electronically f or review and comparison. FINDINGS: Sagittal images demonstrate normal vertebral body alignment and curvature. No fractures identified. A xial images performed from T1-T2 through T12-L1. There is multilevel disc space narrowing and margina l osteophyte formation maximal at the thoracolumbar junction. There is patchy alveolar disease bilate rally compatible with edema or pneumonia. T1-T2: No significant abnormalities identified. T2-T3: No significant abnormalities identified. T3-T4: There is no evidence of disc protrusion or spinal canal stenosis. There is mild facet arthritis bilat erally. T4-T5: No significant abnormalities identified. T5-T6: No significant abnormalities identified. T6-T7: There is mild facet arthritis bilaterally. There is no significant spinal canal stenosis. T7-T8: No significant abnormalities identified. T8-T9: No significant abnormalities identified. T9-T10: No significant abnormalities identified. T10-T11: There is mild annular bulge of the disc. There is mild facet arthritis bilaterally. There is no signi ficant spinal canal stenosis. T11-T12: There is mild annular bulge of the disc. There is mild facet arthritis bilaterally. T12-L1: No significant abnormalities identified. CONCLUSION: Moderate degenerative changes as described above. There is no evidence of acute fracture. . Rick Figueroa MD on December 23, 2016 at 21:47 Board Certified Radiologist. This report was verified electronically.
--- NOTE | 2016-12-23 22:37 | MB ---
cc: JASMINE PHIPPS M.D. DATE OF CONSULTATION: 12/23/2016 REASON FOR CONSULTATION: Generalized weakness. HISTORY OF PRESENT ILLNESS Ms. Stovall is a very nice 86-year-old woman diagnosed about 3 minutes ago in [place] with brachial plexitis when she developed weakness in her right arm confirmed by EMG testing. She is placed on prednisone with improvement in her symptoms. She is now admitted, however, with diffuse weakness involving the upper as well as lower extremities. She has tapered her prednisone down to 10 milligrams daily. She has also been found to be septic. She has been running fevers as well. PAST MEDICAL HISTORY: 1. History of pacemaker placement. 2. Hypertension. 3. Hypothyroidism. 4. Hyperlipidemia. 5. Atrial fibrillation. 6. Mitral valve repair. 7. Appendectomy. 8. Hysterectomy. 9. Right knee replacement. MEDICATIONS: 1. Oxycodone. 2. Lidocaine 3. Tramadol. 4. Protonix. 5. Gabapentin 300 milligrams t.i.d. 6. Prednisone 10 milligrams daily. 7. Fish oil. 8. Elavil 300 milligrams hs. 9. Lasix 20 milligrams daily. 10. Rosuvastatin 11. Levothyroxine 12. Losartan. 13. Aspirin 14. Metoprolol ALLERGIES: IODINE POTASSIUM PODIODINE IVP DYE NEUROLOGICAL EXAMINATION: Vital signs: Blood pressure is 116/56, pulse 85, respirations 17, temperature 98 degrees. Higher cortical functions are normal. Cranial nerves intact. Motor exam: she is weak in both upper and lower extremities graded at 4/5. She has tenderness in the upper and lower extremity, reflexes are trace bilaterally. There is no Babinski sign present. LABORATORY DATA White count 16,300. Hemoglobin 9.8, hematocrit 29.9%, platelet count is 160,000, sed rate 56, C-reactive protein elevated at 13, CPK is normal at 50, alk phos 64, AST 33, ALT 21, sodium is 133, potassium 3.6, chloride 93, CO2 33.3, BUN is 13, creatinine 0.95, TSH 6.33, PT 11.3, INR 1, APTT 26.1. Urinalysis: pH is 5.5, specific gravity 1.011. IMPRESSION Generalized weakness, possible neuropathy. 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 I doubt that this is a polymyositis with a normal CPK. Sepsis may also be contributing as well. RECOMMENDATIONS: I would like to get a CT scan of the cervical, thoracic spine to be sure there is no spinal stenosis, may need to consider further evaluation with lumbar puncture. For now, will increase the prednisone 20 milligrams and she seemed to be doing better on a higher dose of prednisone. 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 MD TIMI Gatica/WIN /7:14 PM /10:13 PM
--- NOTE | 2016-12-23 23:12 | MB ---
cc: [employer] DATE OF CONSULTATION: 12/23/2016 REASON FOR CONSULTATION: Evaluation of atrial fibrillation. HISTORY OF PRESENT ILLNESS: Marika Stovall is an 86 year-old female. She has multiple medical problems. She has a history of hypertension, CHF, coronary artery disease. She had a cardiac catheterization September 16, 2013, showing 70% mid LAD disease, 30 to 40% right coronary artery disease and severe mitral regurgitation. She underwent mitral valve replacement with a mosaic, apparently porcine mitral valve and NEELY to the LAD. Shortly thereafter, she had a [employer] dual-chamber pacemaker. She has had problems with severe pain in her legs, weakness in her arms, weakness in her legs, and has been seeing neurology. She was placed on prednisone which was gradually tapered. With that, she noticed some lower extremity edema. The swelling has gotten worse, and so she finally came to the ER. In the ER she was febrile to 102.2 degrees and went into rapid atrial fibrillation. She has converted back into sinus rhythm on her own before any therapy was initiated. At the time I am seeing her, she denies any anginal symptoms, denies any shortness of breath. Denies any chest pain. PAST MEDICAL HISTORY: 1. Hypothyroidism. 2. Hypertension. 3. Previous CHF. 4. Previous bypass surgery. 5. Mitral valve replacement. PAST SURGICAL HISTORY: 1. Appendectomy. 2. Hysterectomy. 3. Shoulder surgery. 4. Right knee surgery. MEDICATIONS: Charted. She has been on angiotensin receptor cesia, beta-cesia, and aspirin. ALLERGIES: IODINE SOCIAL HISTORY Nonsmoker, nondrinker. FAMILY HISTORY: Family history is positive for stroke and Alzheimer's. PHYSICAL EXAMINATION: Reveals an obese well-developed patient in no acute distress. VITAL SIGNS: Charted. HEENT: Unremarkable. NECK: No JVD. No bruits. CHEST: Clear to auscultation. CARDIAC: S1-S2, regular rate and rhythm with a 2/5 aortic valve sclerosis type murmur. I do not suspect aortic stenosis. ABDOMEN: Soft, nontender. EXTREMITIES: Reveal 1+ edema. LABORATORY DATA: Charted. Hematocrit 29.9, white count elevated 16,300. C-reactive protein is elevated at 13, creatinine is 0.95. Chest x-ray: Shows mild compensated cardiomegaly and dual-chamber pacemaker leads. Lower extremity ultrasound showed no evidence for DVT. EKG on presentation showed A-fib, rapid ventricular response, left bundle-branch block. Subsequently she has converted to sinus rhythm, with fast ventricular pacing rhythm. IMPRESSION: Proximal atrial fibrillation in the setting of possible sepsis with fever. She has lower extremity edema but no overt heart failure. This is probably related to her steroids. RECOMMENDATIONS: Would favor placing her back on her beta-cesia and angiotensin receptor cesia. She is frail. I am going to hold off on permanent anticoagulation since this seems to have been triggered by an infectious related event. Echo has been read as possible aortic stenosis although by exam it sounds more like aortic valve sclerosis. Further therapy to be determined. MD CHRISTY Matthew/WIN /8:25 PM /10:58 PM
[2016-12-24] VITALS (11 sets, daily range): BP systolic 103–164; BP diastolic 56–69; PULSE 60–91; RESP 14–20; TEMP 97.6–99.3; O2SAT 95–100
[2016-12-24] MEDS: CHLORHEXIDINE GLUCONATE 2 % 1 PACK (2 CLOTHS)(taper/protocol) TOPICAL SCH (04:00)
[2016-12-24] MEDS: LEVOTHYROXINE SODIUM 50 MCG TAB PO SCH (05:45)
[2016-12-24] MEDS: PIPERACIL-TAZO 3.375 GM PREMIX 50 ML IV SCH ×3 (05:45→23:34)
[2016-12-24 06:08] LABS: ALT (GPT) 19 U/L (10-53); ANION GAP 7 MEQ/L (5-15); AST (GOT) 29 U/L (15-37); BICARBONATE 32.4 MEQ/L (21.0-32.0); BLOOD UREA NITROGEN 17 MG/DL (7-18); CHLORIDE 94 MEQ/L (98-107); GLOMERULAR FILTRATION RATE 49 ML/MIN (>89); POTASSIUM 3.2 MEQ/L (3.5-5.1); SODIUM (NA) 133 MEQ/L (136-145)
[2016-12-24 06:11] LABS: ALKALINE PHOSPHATASE 61 U/L (45-117)
[2016-12-24 06:41] LABS: AUTOMATED NEUTROPHIL # 10.5 TH/MM3 (1.8-7.7); BASOPHIL # 0.1 TH/MM3 (0-0.2); EOSINOPHIL # 0.3 TH/MM3 (0-0.4); EOSINOPHIL % 1.9 % (0.0-4.0); HEMATOCRIT 27.8 % (35.0-46.0); LYMPH % 14.9 % (9.0-44.0); MEAN CELL VOLUME 88.8 FL (80.0-100.0); MEAN CORPUSCULAR HGB CONC 32.7 % (32.0-36.0); MONO % 4.5 % (0.0-8.0); NEUT % 77.7 % (16.0-70.0); PLATELET COUNT 162 TH/MM3 (150-450); RED BLOOD COUNT 3.13 MIL/MM3 (4.00-5.30); RED CELL DISTRIBUTION WIDTH 16.7 % (11.6-17.2); WHITE BLOOD COUNT 13.6 TH/MM3 (4.0-11.0)
[2016-12-24 06:46] LABS: HEMO FLAGS AUTO DIFF
[2016-12-24 08:01] LABS: PLATELET ESTIMATE SMEAR NORMAL (NORMAL); PLATELET MORPHOLOGY NORMAL (NORMAL); SCAN/DIFF AUTO DIFF CONFIRMED
[2016-12-24] MEDS: SODIUM CHLORIDE 0.9% FLUSH 10 ML FLUSH IV FLUSH SCH ×2 (08:40→21:06)
[2016-12-24] MEDS: LOSARTAN 50 MG TAB PO SCH (08:40)
[2016-12-24] MEDS: ASPIRIN 325 MG TAB PO SCH (08:40)
[2016-12-24] MEDS: predniSONE 10 MG TAB PO SCH (08:41)
[2016-12-24] MEDS: FUROSEMIDE 20 MG TAB PO SCH (08:41)
[2016-12-24] MEDS: LACTOBACILLUS ACIDOPHILUS TAB PO SCH ×2 (08:41→21:00)
[2016-12-24] MEDS: METOPROLOL TARTRATE 100 MG TAB PO SCH ×2 (08:41→21:06)
[2016-12-24] MEDS: PANTOPRAZOLE SOD 40 MG DELAYED RELEASE TAB PO SCH ×2 (08:41→21:06)
[2016-12-24] MEDS: GABAPENTIN 300 MG CAP PO SCH ×3 (08:41→17:04)
[2016-12-24] MEDS ORDERED: predniSONE 10 MG TAB PO SCH (09:00)
--- NOTE | 2016-12-24 09:24 | PD.CARD.PN ---
Subjective Subjective Remarks No CV complaints Objective Medications Current Medications Medications (Trade) Dose Ordered Sig/Yuly Route Start Time Stop Time Status Last Admin Diltiazem HCl 125 mg/Sodium Chloride 125 ml @ 5 mls/hr TITRATE PRN IV 12/23/16 09:00 12/23/16 09:27 (NS Flush) 2 ml UNSCH PRN IV FLUSH 12/23/16 12:45 12/24/16 08:40 (NS Flush) 2 ml BID IV FLUSH 12/23/16 21:00 12/24/16 08:40 (Tylenol) 650 mg Q4H PRN PO 12/23/16 12:45 (Zofran Inj) 4 mg Q6H PRN IVP 12/23/16 12:45 (Tylenol) 650 mg Q6H PRN PO 12/23/16 12:45 (Narcan Inj) 0.4 mg UNSCH PRN IV PUSH 12/23/16 12:45 (Milk Of Magnesia Liq) 30 ml Q12H PRN PO 12/23/16 12:45 (Duoneb Neb) 1 ampule Q2HR NEB PRN NEB 12/23/16 12:45 Piperacillin Sod/ Tazobactam Sod 50 ml @ 100 mls/hr Q8H IV 12/23/16 15:00 12/24/16 05:45 Pharmacy Profile Note 0 ml @ 0 mls/hr UNSCH OTHER 12/23/16 13:45 (Lactinex) 1 tab Q12HR PO 12/23/16 21:00 12/24/16 08:41 (Elavil) 10 mg HS PO 12/23/16 21:00 12/23/16 21:17 (Aspirin) 325 mg DAILY PO 12/24/16 09:00 12/24/16 08:40 (Neurontin) 300 mg TID PO 12/23/16 18:00 12/24/16 08:41 (Synthroid) 50 mcg DAILY@0600 PO 12/24/16 06:00 12/24/16 05:45 (Cozaar) 50 mg DAILY PO 12/24/16 09:00 12/24/16 08:40 (Lopressor) 100 mg BID PO 12/23/16 21:00 12/24/16 08:41 (Roxicodone) 5 mg Q6H PRN PO 12/23/16 13:45 12/23/16 21:17 (Protonix) 40 mg BID PO 12/23/16 21:00 12/24/16 08:41 (Lasix) 20 mg DAILY PO 12/24/16 09:00 12/24/16 08:41 Miscellaneous Information Patient in critical care unit? Ass... [id number] .XX 12/23/16 19:15 12/23/16 19:15 (Chlorhexidine 2% Cloth) 3 pack DAILY@04 TOPICAL 12/24/16 04:00 12/28/16 04:01 12/24/16 04:00 (Chlorhexidine 2% Cloth) 3 pack UNSCH PRN TOPICAL 12/23/16 19:30 12/28/16 19:15 (Deltasone) 20 mg DAILY PO 12/24/16 09:00 12/24/16 08:41 Vancomycin HCl 1500 mg/Sodium Chloride 515 ml @ 250 mls/hr Q24H IV 12/24/16 12:00 Miscellaneous Information SPECIFIC LAB TO BE DRAWN:VANCOMYCIN TROUGH DATE TO... ONCE ONCE .XX 12/26/16 11:45 12/26/16 11:46 Vital Signs / I&O Vital Signs Date Time Temp Pulse Resp B/P (MAP) Pulse Ox O2 Delivery O2 Flow Rate FiO2 12/24/16 06:00 72 12/24/16 04:00 67 12/24/16 04:00 98.7 67 18 103/56 (72) 98 12/24/16 02:00 60 12/24/16 00:00 98.4 91 14 114/57 (76) 100 12/24/16 00:00 91 12/23/16 23:39 100 Nasal Cannula 5.00 12/23/16 22:00 92 12/23/16 20:00 88 12/23/16 20:00 98.7 88 16 123/59 (80) 100 12/23/16 18:00 80 12/23/16 16:00 85 12/23/16 16:00 98.9 85 17 116/56 (76) 97 12/23/16 15:00 98.9 89 13 117/67 (84) 100 12/23/16 15:00 89 12/23/16 15:00 89 12/23/16 14:37 89 20 114/62 (79) 98 12/23/16 14:36 18 12/23/16 14:27 87 18 119/70 (86) 98 Nasal Cannula 3.00 12/23/16 13:09 90 18 117/56 (76) 97 Room Air 12/23/16 09:56 108 20 136/64 (88) 98 Nasal Cannula 3.00 12/23/16 09:41 106 20 121/59 (79) 96 Nasal Cannula 3.00 12/23/16 09:27 94 135/60 12/23/16 09:25 91 20 135/60 (85) 96 Nasal Cannula 3.00 12/23/16 09:23 90 18 104/60 (75) 96 Nasal Cannula 3.00 I/O 12/23/16 12/23/16 12/23/16 12/24/16 12/24/16 12/24/16 07:00 15:00 23:00 07:00 15:00 23:00 Intake Total 100 ml 432.5 ml 300 ml Output Total 600 ml 350 ml Balance 100 ml -167.5 ml -50 ml Intake Oral 120 ml 200 ml IV Total 100 ml 312.5 ml 100 ml Output Urine Total 600 ml 350 ml # Bowel Movements 0 Physical Exam GENERAL: Well developed, obese. No acute distress. HEENT: No JVD. CHEST: Dry rales at bases (?atelectasis). Unlabored respiratory effort. CARDIAC: Regular rate and rhythm without S3, S4, 2/6 FREDRICK (doubt severe ) ABDOMEN: Soft, nontender, no hepatosplenomegaly. Bowel sounds present. EXTREMITIES: No clubbing, cyanosis. Trace edema (improved). Laboratory Laboratory Tests Test 12/23/16 14:55 12/24/16 05:01 Nasal Screen MRSA (PCR) MRSA NOT DETECTED White Blood Count 13.6 TH/MM3 Red Blood Count 3.13 MIL/MM3 Hemoglobin 9.1 GM/DL Hematocrit 27.8 % Mean Corpuscular Volume 88.8 FL Mean Corpuscular Hemoglobin 29.0 PG Mean Corpuscular Hemoglobin Concent 32.7 % Red Cell Distribution Width 16.7 % Platelet Count 162 TH/MM3 Mean Platelet Volume 8.0 FL Neutrophils (%) (Auto) 77.7 % Lymphocytes (%) (Auto) 14.9 % Monocytes (%) (Auto) 4.5 % Eosinophils (%) (Auto) 1.9 % Basophils (%) (Auto) 1.0 % Neutrophils # (Auto) 10.5 TH/MM3 Lymphocytes # (Auto) 2.0 TH/MM3 Monocytes # (Auto) 0.6 TH/MM3 Eosinophils # (Auto) 0.3 TH/MM3 Basophils # (Auto) 0.1 TH/MM3 CBC Comment AUTO DIFF Differential Comment AUTO DIFF CONFIRMED Platelet Estimate NORMAL Platelet Morphology Comment NORMAL Red Cell Morphology Comment NORMAL Blood Urea Nitrogen 17 MG/DL Creatinine 1.07 MG/DL Random Glucose 103 MG/DL Total Protein 6.0 GM/DL Albumin 2.4 GM/DL Calcium Level 8.2 MG/DL Alkaline Phosphatase 61 U/L Aspartate Amino Transf (AST/SGOT) 29 U/L Alanine Aminotransferase (ALT/SGPT) 19 U/L Total Bilirubin 1.0 MG/DL Sodium Level 133 MEQ/L Potassium Level 3.2 MEQ/L Chloride Level 94 MEQ/L Carbon Dioxide Level 32.4 MEQ/L Anion Gap 7 MEQ/L Estimat Glomerular Filtration Rate 49 ML/MIN Random Vancomycin Level 12.8 COMMENT Imaging Last 48 hours Impressions Lower Extremity Ultrasound 12/23/16712 Signed Impressions: Service Date/Time: Friday, December 23, 2016 08:02 - CONCLUSION: Normal examination. No evidence of DVT Aneesh Bello MD Chest X-Ray 12/23/16712 Signed Impressions: Service Date/Time: Friday, December 23, 2016 09:06 - CONCLUSION: Pacer, mild compensated cardiomegaly. Negative for pneumothorax. Homero Guerra MD FACR Thoracic Spine CT 12/23/16 Signed Impressions: Service Date/Time: Friday, December 23, 2016 20:48 - CONCLUSION: Moderate degenerative changes as described above. There is no evidence of acute fracture. . Rick Figueroa MD Lumbar Spine CT 12/23/16 Signed Impressions: Service Date/Time: Friday, December 23, 2016 20:48 - CONCLUSION: 1. Moderate degenerative changes as described above. There is no evidence of acute fracture. 2. Moderate spinal canal stenosis at L2-L3. Rick Figueroa MD Cervical Spine CT 12/23/16 Signed Impressions: Service Date/Time: Friday, December 23, 2016 20:42 - CONCLUSION: 1. Moderate degenerative changes as described above. There is no evidence of acute fracture. Rick Figueroa MD Assessment and Plan Problem List: (1) Coronary artery disease ICD Codes: I25.10 - Atherosclerotic heart disease of tribal coronary artery without angina pectoris Plan: stable (2) History of mitral valve replacement with bioprosthetic valve ICD Codes: Z95.3 - Presence of xenogenic heart valve (3) Paroxysmal atrial fibrillation ICD Codes: I48.0 - Paroxysmal atrial fibrillation Plan: will need OAC if recurs Damián Martinez MD Dec 24, 2016 09:24
--- NOTE | 2016-12-24 10:29 | HHI.PR ---
Subjective Remarks Written by Mecca Covarrubias, acting as scribe for Dr. Gray on 12/24/16 at 10: 29. Follow-up on patient with severe sepsis, UTI, A. fib with RVR. Patient seen and examined. Patient continues to have significant pain in the bilateral upper and lower extremities. Patient denies any complaints of fever or chills today. She denies any chest pain or shortness of breath. Denies any nausea, vomiting or abdominal pain. Discussed with Dr. Martinez at the bedside who does not believe that anticoagulation is needed at this time. Patient evaluated by Dr. Marquez who increased patient's prednisone and is considering a lumbar puncture. Discussed with nursing staff, patient's blood cultures positive for gram-positive cocci. Objective Vitals Vital Signs Date Time Temp Pulse Resp B/P (MAP) Pulse Ox O2 Delivery O2 Flow Rate FiO2 12/24/16 06:00 72 12/24/16 04:00 67 12/24/16 04:00 98.7 67 18 103/56 (72) 98 12/24/16 02:00 60 12/24/16 00:00 98.4 91 14 114/57 (76) 100 12/24/16 00:00 91 12/23/16 23:39 100 Nasal Cannula 5.00 12/23/16 22:00 92 12/23/16 20:00 88 12/23/16 20:00 98.7 88 16 123/59 (80) 100 12/23/16 18:00 80 12/23/16 16:00 85 12/23/16 16:00 98.9 85 17 116/56 (76) 97 12/23/16 15:00 98.9 89 13 117/67 (84) 100 12/23/16 15:00 89 12/23/16 15:00 89 12/23/16 14:37 89 20 114/62 (79) 98 12/23/16 14:36 18 12/23/16 14:27 87 18 119/70 (86) 98 Nasal Cannula 3.00 12/23/16 13:09 90 18 117/56 (76) 97 Room Air I/O 12/23/16 12/23/16 12/23/16 12/24/16 12/24/16 12/24/16 07:00 15:00 23:00 07:00 15:00 23:00 Intake Total 100 ml 432.5 ml 300 ml Output Total 600 ml 350 ml Balance 100 ml -167.5 ml -50 ml Intake Oral 120 ml 200 ml IV Total 100 ml 312.5 ml 100 ml Output Urine Total 600 ml 350 ml # Bowel Movements 0 Result Diagram: 12/24/16 0501 12/24/16 050 Imaging Last Impressions Lower Extremity Ultrasound 12/23/16712 Signed Impressions: Service Date/Time: Friday, December 23, 2016 08:02 - CONCLUSION: Normal examination. No evidence of DVT Aneesh Bello MD Chest X-Ray 12/23/16712 Signed Impressions: Service Date/Time: Friday, December 23, 2016 09:06 - CONCLUSION: Pacer, mild compensated cardiomegaly. Negative for pneumothorax. Homero Guerra MD FACR Thoracic Spine CT 12/23/16 0000 Signed Impressions: Service Date/Time: Friday, December 23, 2016 20:48 - CONCLUSION: Moderate degenerative changes as described above. There is no evidence of acute fracture. . Rick Figueroa MD Lumbar Spine CT 12/23/16 0000 Signed Impressions: Service Date/Time: Friday, December 23, 2016 20:48 - CONCLUSION: 1. Moderate degenerative changes as described above. There is no evidence of acute fracture. 2. Moderate spinal canal stenosis at L2-L3. Rick Figueroa MD Cervical Spine CT 12/23/16 0000 Signed Impressions: Service Date/Time: Friday, December 23, 2016 20:42 - CONCLUSION: 1. Moderate degenerative changes as described above. There is no evidence of acute fracture. Rick Figueroa MD Objective Remarks GENERAL: This is an obese, well-developed patient, in no apparent distress. Awake and alert. Daughters at the bedside. SKIN: Warm and dry. Multiple hyperpigmented lesion BUE and BLE. HEAD: Normocephalic. EYES: Extraocular motions intact. No scleral icterus. No injection or drainage. ENT: Nose without bleeding. Airway patent. MMM. NECK: Trachea midline. Supple. Garcia face. CARDIOVASCULAR: Regular rate and rhythm without murmurs, gallops, or rubs. RESPIRATORY: Clear to auscultation but with diminished bases bilaterally. Breath sounds equal bilaterally. No wheezes, rales, or rhonchi. GASTROINTESTINAL: Abdomen soft, non-tender, nondistended. No hepato-splenomegaly , or palpable masses. No guarding. MUSCULOSKELETAL: Extremities without clubbing, cyanosis, Trace BLE edema. Pulses palpable. NEUROLOGICAL: Awake and alert. Motor and sensory grossly within normal limits. Normal speech. Medications and IVs Current Medications Medications (Trade) Dose Ordered Sig/Yuly Route Start Time Stop Time Status Last Admin Diltiazem HCl 125 mg/Sodium Chloride 125 ml @ 5 mls/hr TITRATE PRN IV 12/23/16 09:00 12/23/16 09:27 (NS Flush) 2 ml UNSCH PRN IV FLUSH 12/23/16 12:45 12/24/16 08:40 (NS Flush) 2 ml BID IV FLUSH 12/23/16 21:00 12/24/16 08:40 (Tylenol) 650 mg Q4H PRN PO 12/23/16 12:45 (Zofran Inj) 4 mg Q6H PRN IVP 12/23/16 12:45 (Tylenol) 650 mg Q6H PRN PO 12/23/16 12:45 (Narcan Inj) 0.4 mg UNSCH PRN IV PUSH 12/23/16 12:45 (Milk Of Magnesia Liq) 30 ml Q12H PRN PO 12/23/16 12:45 (Duoneb Neb) 1 ampule Q2HR NEB PRN NEB 12/23/16 12:45 Piperacillin Sod/ Tazobactam Sod 50 ml @ 100 mls/hr Q8H IV 12/23/16 15:00 12/24/16 05:45 Pharmacy Profile Note 0 ml @ 0 mls/hr UNSCH OTHER 12/23/16 13:45 (Lactinex) 1 tab Q12HR PO 12/23/16 21:00 12/24/16 08:41 (Elavil) 10 mg HS PO 12/23/16 21:00 12/23/16 21:17 (Aspirin) 325 mg DAILY PO 12/24/16 09:00 12/24/16 08:40 (Neurontin) 300 mg TID PO 12/23/16 18:00 12/24/16 12:48 (Synthroid) 50 mcg DAILY@0600 PO 12/24/16 06:00 12/24/16 05:45 (Cozaar) 50 mg DAILY PO 12/24/16 09:00 12/24/16 08:40 (Lopressor) 100 mg BID PO 12/23/16 21:00 12/24/16 08:41 (Roxicodone) 5 mg Q6H PRN PO 12/23/16 13:45 12/24/16 10:30 (Protonix) 40 mg BID PO 12/23/16 21:00 12/24/16 08:41 (Lasix) 20 mg DAILY PO 12/24/16 09:00 12/24/16 08:41 Miscellaneous Information Patient in critical care unit? Ass... Q361D .XX 12/23/16 19:15 12/23/16 19:15 (Chlorhexidine 2% Cloth) 3 pack DAILY@04 TOPICAL 12/24/16 04:00 12/28/16 04:01 12/24/16 04:00 (Chlorhexidine 2% Cloth) 3 pack UNSCH PRN TOPICAL 12/23/16 19:30 12/28/16 19:15 (Deltasone) 20 mg DAILY PO 12/24/16 09:00 12/24/16 08:41 Vancomycin HCl 1500 mg/Sodium Chloride 515 ml @ 250 mls/hr Q24H IV 12/24/16 12:00 12/24/16 11:51 Miscellaneous Information SPECIFIC LAB TO BE DRAWN:VANCOMYCIN TROUGH DATE TO... ONCE ONCE .XX 12/26/16 11:45 12/26/16 11:46 A/P Problem List: (1) Sepsis ICD Code: A41.9 - Sepsis, unspecified organism (2) UTI (urinary tract infection) ICD Code: N39.0 - Urinary tract infection, site not specified (3) CHF (congestive heart failure) ICD Code: I50.9 - Heart failure, unspecified Status: Acute (4) Paroxysmal atrial fibrillation ICD Code: I48.0 - Paroxysmal atrial fibrillation Assessment and Plan Patient is an 86-year-old female with primary medical history of hypothyroidism , HTN, CHF who came in due to hospital brought in by daughter secondary to complaints of bilateral lower extremity pain, swelling, decline in mental status. Sepsis, severe UTI - Febrile 102.2, heart rate 112, WBC 16.3 - afebrile x 24hrs - Lactic acid 1.3 - UA positive, cultures with immature growth, reincubate - BCX positive for Gram+ cocci and streptococus. Consult ID. Continue on Vancomycin and Zosyn pending ID's recommendations. Repeat Blood cultures ordered. - patient with hx of mitral valve replacement with bioprosthetic valve - ESR 56, CRP 13 - Patient has been on prolonged use of prednisone, immunocompromised. 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 Marquez for Lyme's disease, nerve tests, other autoimmune disorders - ESR 56, CRP 13 - Neurology following, appreciate assistance. Workup in progress. Prednisone increased to 20mg daily. CT of the cervical, thoracic and lumbar spine ordered by neuro results of which showing moderate degenerative changes throughout the spine with moderate spinal canal stenosis at L2-3. Neuro considering LP. - Continue pain management with gabapentin, morphine sulfate IV, oxycodone Paroxysmal A. fib with RVR, resolved Hx of mitral valve replacement with bioprosthetic valve - Reported to have heart rate of 200s - Patient has a permanent pacemaker and was interrogated. Interrogation was within normal - Patient was given IV amiodarone, started on Cardizem drip titrate to heart <100 - Cardiology following, appreciate their assistance. Discussed with Dr. Martinez at the bedside - Afib with RVR in face of infection/fever. Now in NSR. No anticoagulation recommended at this time. If afib recurs, will need to begin OAC. CHF, systolic, acute exacerbation, improving Bilateral lower extremity edema, improved - Chest x-ray showed pacer, mild compensated cardiomegaly. Negative for pneumothorax - BNP 769 - Lasix 20mg po daily. Monitor electrolytes. - 2-D echo ordered showing moderate to severely reduced EF 35-40%, moderate to severe aortic valve stenosis but per Dr. Martinez by exam sounds more like aortic valve sclerosis HTN HLD - BP controlled - Continue metoprolol 100 mg twice a day, losartan 50 mg daily - Monitor BP trend Hypothyroidism - Continued home medications levothyroxine - TSH 6.330 CAROL ANN - mild - avoid nephrotoxins - Monitor closely especially while on vancomycin - Encourage by mouth intake - BMP ordered for am Hypokalemia - Repletion ordered - Repeat labs in a.m. to monitor response Rule out DVT Bilateral lower extremity edema, pain Generalized weakness, unable to ambulate - Doppler studies of bilateral lower extremity normal examination No evidence of DVT. - PT/OT eval/tx Consult case management for assistance in discharge planning DVT prop SCDs GI prop pantoprazole This note was transcribed by jaron Covarrubias. I, Dr. Diomedes Gray personally performed the history, physical exam, and medical decision making; and confirmed the accuracy of the information in the transcribed note. Authenticated by Dr. Diomedes Gray on 12/24/16 at 10:29. Problem Qualifiers (1) CHF (congestive heart failure): Qualified Codes: I50.9 - Heart failure, unspecified Mecca Covarrubias Dec 24, 2016 10:29 Diomedes Gray MD Dec 24, 2016 10:29
[2016-12-24] MEDS: VANCOMYCIN INJ 1,500 MG in SODIUM CHLORID 0.9% 500 ML INJ 500 ML IV SCH (11:51)
[2016-12-24] MEDS ORDERED: POTASSIUM CHLORIDE 10 MEQ CONTROLLED RELEASE TAB PO ONE (12:00)
--- NOTE | 2016-12-24 14:53 | PD.CONS ---
History of Present Illness Service Infectious disease Consult Requested By Dr Gray Reason for Consult Evaluate patient with positive blood cultures Primary Care Physician Ramona Munoz MD Diagnoses: History of Present Illness Patient seen and examined. Records reviewed. Patient is an 86-year-old female, but into the hospital for evaluation of bilateral lower extremity pain with swelling, generalized weakness, and was mention of a decline in mental status. Patient is not a very good historian. She denies any respiratory complaint, no chest pain or shortness of breath. There is been no nausea or vomiting, diarrhea or constipation. She denies any dysuria. From the records, looks like the patient was hospitalized in [place] and evaluated for her bilateral upper extremity pain, right worse than the left. She was diagnosed to have brachial plexitis and was treated with steroids. From the hospital in [place] she went to a rehabilitation facility, and about 7 months ago she moved to [place] and she has been staying with her daughter. According to the daughter the patient improved some with the steroids. The steroid dose has been decreasing. Patient has seen Dr Marquez, and she is actually being reevaluated for her weakness and pain. She has now been experiencing pain and weakness in both LE. She has not been able to do much as far as ambulation due to the pain. She has seen her audio/video technician recently and she had some low grade temps at that time, and was told that she has UTI. On presentation her temperature was up to 102.2. She also had A. fib on presentation, and converted to NSR. 2 blood cultures were done, and they are now reported as growing gram-positive cocci in pairs and chains. Temps now normal. Patient is getting neurological workup. She has had CT of the whole spine which showed degenerative disc disease. The UVC is elevated. Sedimentation rate is 56, C-reactive protein is 13. UA is okay. Infectious disease consultation has been requested to assist in evaluation and treatment of her positive blood cultures Review of Systems Constitutional: COMPLAINS OF: Fatigue, Fever, Chills Eyes: DENIES: Eye pain Ears, nose, mouth, throat: DENIES: Nasal discharge, Oral lesions, Throat pain, Sinus Pain Respiratory: DENIES: Cough, Shortness of breath Cardiovascular: COMPLAINS OF: Lower Extremity Edema, DENIES: Chest pain, Syncope Gastrointestinal: DENIES: Abdominal pain, Constipation, Diarrhea, Nausea, Vomiting, Difficulty Swallowing Genitourinary: DENIES: Urinary frequency, Dysuria Musculoskeletal: COMPLAINS OF: Joint pain, Muscle aches, Joint Swelling, Back pain, Neck pain Integumentary: COMPLAINS OF: Rash, DENIES: Pruritus Neurologic: DENIES: Headache Psychiatric: COMPLAINS OF: Confusion Past Family Social History Allergies: Coded Allergies: Iodinated Contrast- Oral and IV Dye (Unverified Allergy, Severe, EYES SWELLING, 12/23/16) iodine (Unverified Allergy, Severe, EYES SWELLING, 12/23/16) potassium iodide (Unverified Allergy, Severe, EYES SWELLING, 12/23/16) povidone-iodine (Unverified Allergy, Severe, EYES SWELLING, 12/23/16) sodium iodide (Unverified Allergy, Severe, EYES SWELLING, 12/23/16) sodium iodide (Unverified Allergy, Severe, EYES SWELLING, 12/23/16) Uncoded Allergies: IVP DYE (Allergy, Unknown, EYES SWELLING, 05/17/08) Past Medical History Hypothyroidism Hypertension Hyperlipidemia CAD A. fib Brachial plexitis Past Surgical History Permanent pacemaker Status post mitral valve replacement, with porcine valve Appendectomy Hysterectomy 2 shoulder replacement Right knee replacement Reported Medications I attest that I obtained, updated or reviewed the home and current medications. Reviewed list with the patient's daughter Reported Meds & Active Scripts Active Reported Oxycodone (Oxycodone HCl) 5 Mg Cap 5 Mg PO Q6H PRN Lidocaine Patch 12 HR (Lidocaine) 5 % Patch 1 Patch TOPICAL DAILY Remove patch after 12 hours Tramadol (Tramadol HCl) 50 Mg Tab 50 Mg PO Q12HR PRN Protonix (Pantoprazole Sodium) 40 Mg Tab 40 Mg PO BID Gabapentin 300 Mg Cap 300 Mg PO TID Prednisone 10 Mg Tab 10 Mg PO DAILY Fish Oil + D3 (Fish Oil-Cholecalciferol) 1,200-1,000 Mg-Unit Cap 1 Cap PO DAILY Amitriptyline (Amitriptyline HCl) 10 Mg Tab 10 Mg PO HS Furosemide 20 Mg Tab 20 Mg PO DAILY Rosuvastatin (Rosuvastatin Calcium) 10 Mg Tab 10 Mg PO HS Levothyroxine (Levothyroxine Sodium) 50 Mcg Tab 50 Mcg PO DAILY Losartan (Losartan Potassium) 50 Mg Tab 50 Mg PO DAILY Vitamin D-1000 (Cholecalciferol) 1,000 Unit Tab 1,000 Units PO DAILY Aspirin 325 Mg Tab 325 Mg PO DAILY Metoprolol Tartrate 100 Mg Tab 100 Mg PO BID Active Ordered Medications Tylenol prn Albuterol prn Elavil Aspirin Cardizem Lasix Neurontin Lactinex Synthroid Cozaar MOM prn Lopressor Zofran prn Oxycodone prn Protonix Zosyn IV Prednisone Vancomycin IV Family History Father had a stroke Mother had Alzheimer's disease Social History Lives with the daughter No smoking Denies alcohol Denies illicit drugs Physical Exam Vital Signs Vital Signs Date Time Temp Pulse Resp B/P (MAP) Pulse Ox O2 Delivery O2 Flow Rate FiO2 12/24/16 13:00 99.3 83 19 152/69 (96) 95 12/24/16 12:00 91 12/24/16 12:00 98.3 91 19 136/58 (84) 100 12/24/16 09:00 83 20 139/60 (86) 95 12/24/16 08:00 96 Nasal Cannula 3.00 12/24/16 08:00 98.8 75 17 128/59 (82) 96 12/24/16 08:00 75 12/24/16 07:00 76 15 112/62 (79) 100 12/24/16 06:00 72 12/24/16 04:00 67 12/24/16 04:00 98.7 67 18 103/56 (72) 98 12/24/16 02:00 60 12/24/16 00:00 98.4 91 14 114/57 (76) 100 12/24/16 00:00 91 12/23/16 23:39 100 Nasal Cannula 5.00 12/23/16 22:00 92 12/23/16 20:00 88 12/23/16 20:00 98.7 88 16 123/59 (80) 100 12/23/16 18:00 80 12/23/16 16:00 85 12/23/16 16:00 98.9 85 17 116/56 (76) 97 12/23/16 15:00 98.9 89 13 117/67 (84) 100 12/23/16 15:00 89 12/23/16 15:00 89 12/23/16 14:37 89 20 114/62 (79) 98 12/23/16 14:36 18 12/23/16 14:27 87 18 119/70 (86) 98 Nasal Cannula 3.00 Physical Exam GENERAL: Patient is an obese, well-developed CF, awake and alert, not in respiratory distress. She is confused to place, and date SKIN: Warm and dry. Has purpuric rash in both UE and both legs, no embolic lesions seen in hands or feet HEAD: Atraumatic. Normocephalic. No temporal wasting, or tenderness. EYES: [place] conjunctiva. No petechia or hemorrhage. Pupils equal, round and reactive to light. Extraocular movements full and intact. No scleral icterus. No injection or drainage. EARS, NOSE AND THROAT: Nose without bleeding or purulent nasal discharge. No sinus tenderness. Mucous membranes pink and moist. No oral lesions noted. No exudate. No oral thrush. She wears upper dentures and partial lower NECK: Trachea midline. Supple and not tender, no meningeal signs CARDIOVASCULAR: Regular rate and rhythm. Has murmur sytolic at base of the heart. No rub. Sternotomy scar C/W surgical history. Pacer in her left upper chest with no evidence of infection RESPIRATORY: Clear to auscultation. Breath sounds equal bilaterally. No rales , wheezing or rhonchi. Decreased at the bases ABDOMEN: Soft, slightly round, non-tender, nondistended. Bowel sounds present and normoactive. No guarding. No rebound. No organomegaly. EXTREMITIES: No clubbing, cyanosis. Has some pitting edema in both feet, notable for the purpuric rash in forearms and legd. No joint effusion, has good ROM. No calf tenderness. Well perfused and warm. NEUROLOGICAL: Awake and alert. Cranial nerves grossly intact. Motor grossly within normal limits. PSYCHIATRIC: Normal affect, calm and cooperative. LINE: No evidence of infection Laboratory Laboratory Tests Test 12/23/16 14:55 12/24/16 05:01 Nasal Screen MRSA (PCR) MRSA NOT DETECTED White Blood Count 13.6 Red Blood Count 3.13 Hemoglobin 9.1 Hematocrit 27.8 Mean Corpuscular Volume 88.8 Mean Corpuscular Hemoglobin 29.0 Mean Corpuscular Hemoglobin Concent 32.7 Red Cell Distribution Width 16.7 Platelet Count 162 Mean Platelet Volume 8.0 Neutrophils (%) (Auto) 77.7 Lymphocytes (%) (Auto) 14.9 Monocytes (%) (Auto) 4.5 Eosinophils (%) (Auto) 1.9 Basophils (%) (Auto) 1.0 Neutrophils # (Auto) 10.5 Lymphocytes # (Auto) 2.0 Monocytes # (Auto) 0.6 Eosinophils # (Auto) 0.3 Basophils # (Auto) 0.1 CBC Comment AUTO DIFF Differential Comment AUTO DIFF CONFIRMED Platelet Estimate NORMAL Platelet Morphology Comment NORMAL Red Cell Morphology Comment NORMAL Blood Urea Nitrogen 17 Creatinine 1.07 Random Glucose 103 Total Protein 6.0 Albumin 2.4 Calcium Level 8.2 Alkaline Phosphatase 61 Aspartate Amino Transf (AST/SGOT) 29 Alanine Aminotransferase (ALT/SGPT) 19 Total Bilirubin 1.0 Sodium Level 133 Potassium Level 3.2 Chloride Level 94 Carbon Dioxide Level 32.4 Anion Gap 7 Estimat Glomerular Filtration Rate 49 Random Vancomycin Level 12.8 Date/Time Source Procedure Growth Status 12/23/16 07:18 Blood Peripheral Aerobic Blood Culture - Preliminary Streptococcus Species Resulted 12/23/16 07:18 Anaerobic Blood Culture - Preliminary Gram Positive Cocci Resulted 12/23/16 07:25 Urine Catheterized Urine Urine Culture - Preliminary IMMATURE GROWTH - REINCUBATE Resulted Result Diagram: 12/24/16 0501 12/24/16 0501 Imaging RADIOLOGY STUDIES/FILMS REVIEWED Lower Extremity Ultrasound 12/23/16712 Signed Impressions: Service Date/Time: Friday, December 23, 2016 08:02 - CONCLUSION: Normal examination. No evidence of DVT Aneesh Bello MD Chest X-Ray 12/23/16712 Signed Impressions: Service Date/Time: Friday, December 23, 2016 09:06 - CONCLUSION: Pacer, mild compensated cardiomegaly. Negative for pneumothorax. Homero Guerra MD FACR Thoracic Spine CT 12/23/16 Signed Impressions: Service Date/Time: Friday, December 23, 2016 20:48 - CONCLUSION: Moderate degenerative changes as described above. There is no evidence of acute fracture. . Rick Figueroa MD Lumbar Spine CT 12/23/16 Signed Impressions: Service Date/Time: Friday, December 23, 2016 20:48 - CONCLUSION: 1. Moderate degenerative changes as described above. There is no evidence of acute fracture. 2. Moderate spinal canal stenosis at L2-L3. Rick Figueroa MD Cervical Spine CT 12/23/16 Signed Impressions: Service Date/Time: Friday, December 23, 2016 20:42 - CONCLUSION: 1. Moderate degenerative changes as described above. There is no evidence of acute fracture. Rick Figueroa MD Assessment and Plan Assessment and Plan IMPRESSION Strep sepsis, on admission, very worrisome for endovascular infection - she is S/P MVR and has pacemaker, both done 2014 Atrial fib, now in NSR, due to fever, infection BUE and BLE pain, and weakness, etiology Confusion, due to sepsis RECOMMENDATION Continue Vanco Change Zosyn to Rocephin Repeat BC to document clearing Neuro work-up in progress Will D/W Dr Martinez about ALPHONSO - patient not surgical candidate if with PVE; but if with vegetation in pacer wires, then may need to look into removal of wires , and will discuss with cardio if patient candidate for that Follow C/S Monitor progress Will determine course of Rx once work-up is completed I will follow along with you Thank you for this consultation Discussed Condition With Spoke with daughter, explained my diagnostic plan and treatment recommendations once work-up is completed, and answered all her questions Shiela Romo MD Dec 24, 2016 14:53
[2016-12-24] MEDS: AMITRIPTYLINE HCL 10 MG TAB PO SCH (21:06)
--- NOTE | 2016-12-24 22:24 | HHI.PR ---
Review/Management Diagnosis weakness, myalgia -probably due to sepsis (BC positive for strep) Diagnosis/Plan: Subjective Subjective Comments No acute events reported Active Medications Current Medications Medications (Trade) Dose Ordered Sig/Yuly Route Start Time Stop Time Status Last Admin Diltiazem HCl 125 mg/Sodium Chloride 125 ml @ 5 mls/hr TITRATE PRN IV 12/23/16 09:00 12/23/16 09:27 (NS Flush) 2 ml UNSCH PRN IV FLUSH 12/23/16 12:45 12/24/16 08:40 (NS Flush) 2 ml BID IV FLUSH 12/23/16 21:00 12/24/16 21:06 (Tylenol) 650 mg Q4H PRN PO 12/23/16 12:45 (Zofran Inj) 4 mg Q6H PRN IVP 12/23/16 12:45 (Tylenol) 650 mg Q6H PRN PO 12/23/16 12:45 (Narcan Inj) 0.4 mg UNSCH PRN IV PUSH 12/23/16 12:45 (Milk Of Magnesia Liq) 30 ml Q12H PRN PO 12/23/16 12:45 (Duoneb Neb) 1 ampule Q2HR NEB PRN NEB 12/23/16 12:45 Piperacillin Sod/ Tazobactam Sod 50 ml @ 100 mls/hr Q8H IV 12/23/16 15:00 12/24/16 17:04 Pharmacy Profile Note 0 ml @ 0 mls/hr UNSCH OTHER 12/23/16 13:45 (Lactinex) 1 tab Q12HR PO 12/23/16 21:00 12/24/16 21:00 (Elavil) 10 mg HS PO 12/23/16 21:00 12/24/16 21:06 (Aspirin) 325 mg DAILY PO 12/24/16 09:00 12/24/16 08:40 (Neurontin) 300 mg TID PO 12/23/16 18:00 12/24/16 17:04 (Synthroid) 50 mcg DAILY@0600 PO 12/24/16 06:00 12/24/16 05:45 (Cozaar) 50 mg DAILY PO 12/24/16 09:00 12/24/16 08:40 (Lopressor) 100 mg BID PO 12/23/16 21:00 12/24/16 21:06 (Roxicodone) 5 mg Q6H PRN PO 12/23/16 13:45 12/24/16 10:30 (Protonix) 40 mg BID PO 12/23/16 21:00 12/24/16 21:06 (Lasix) 20 mg DAILY PO 12/24/16 09:00 12/24/16 08:41 Miscellaneous Information Patient in critical care unit? Ass... Q361D .XX 12/23/16 19:15 12/23/16 19:15 (Chlorhexidine 2% Cloth) 3 pack DAILY@04 TOPICAL 12/24/16 04:00 12/28/16 04:01 12/24/16 04:00 (Chlorhexidine 2% Cloth) 3 pack UNSCH PRN TOPICAL 12/23/16 19:30 12/28/16 19:15 (Deltasone) 20 mg DAILY PO 12/24/16 09:00 12/24/16 08:41 Vancomycin HCl 1500 mg/Sodium Chloride 515 ml @ 250 mls/hr Q24H IV 12/24/16 12:00 12/24/16 11:51 Miscellaneous Information SPECIFIC LAB TO BE DRAWN:VANCOMYCIN TROUGH DATE TO... ONCE ONCE .XX 12/26/16 11:45 12/26/16 11:46 Allergies Allergies Coded Allergies Iodinated Contrast- Oral and IV Dye (Unverified Allergy, Severe, EYES SWELLING , 12/23/16) iodine (Unverified Allergy, Severe, EYES SWELLING, 12/23/16) potassium iodide (Unverified Allergy, Severe, EYES SWELLING, 12/23/16) povidone-iodine (Unverified Allergy, Severe, EYES SWELLING, 12/23/16) sodium iodide (Unverified Allergy, Severe, EYES SWELLING, 12/23/16) sodium iodide (Unverified Allergy, Severe, EYES SWELLING, 12/23/16) Uncoded Allergies IVP DYE ( Allergy, Unknown, EYES SWELLING, 05/17/08) Exam I&O / VS 12/24/16 12/24/16 12/25/16 15:00 23:00 07:00 Intake Total 1223 ml 290 ml Output Total 225 ml Balance 998 ml 290 ml Intake Oral 708 ml 240 ml IV Total 515 ml 50 ml Output Urine Total 225 ml # Voids 3 # Bowel Movements 0 Vital Signs Date Time Temp Pulse Resp B/P (MAP) Pulse Ox O2 Delivery O2 Flow Rate FiO2 12/24/16 17:35 Nasal Cannula 3.00 12/24/16 16:01 98.1 78 20 164/67 (99) 100 12/24/16 13:00 99.3 83 19 152/69 (96) 95 12/24/16 12:00 91 12/24/16 12:00 98.3 91 19 136/58 (84) 100 12/24/16 09:00 83 20 139/60 (86) 95 12/24/16 08:00 96 Nasal Cannula 3.00 12/24/16 08:00 98.8 75 17 128/59 (82) 96 12/24/16 08:00 75 12/24/16 07:00 76 15 112/62 (79) 100 12/24/16 06:00 72 12/24/16 04:00 67 12/24/16 04:00 98.7 67 18 103/56 (72) 98 12/24/16 02:00 60 12/24/16 00:00 98.4 91 14 114/57 (76) 100 12/24/16 00:00 91 12/23/16 23:39 100 Nasal Cannula 5.00 Exam Comments alert, oriented times three. speech normal CN 2-12 normal MOTOR--improved LE strength at 4+/5 bilateral iliopsoas, 5/5 bilateral quads, 5/ 5 bilateral hamstring. 5/5 bilateral tibialis anterior Objective Radiology Results CT cervical, thoracic and lumbar spines reviewed and indicate moderate osteoarthritis but no significant spinal stenosis Micro and Labs Laboratory Tests Test 12/24/16 05:01 White Blood Count 13.6 Red Blood Count 3.13 Hemoglobin 9.1 Hematocrit 27.8 Mean Corpuscular Volume 88.8 Mean Corpuscular Hemoglobin 29.0 Mean Corpuscular Hemoglobin Concent 32.7 Red Cell Distribution Width 16.7 Platelet Count 162 Mean Platelet Volume 8.0 Neutrophils (%) (Auto) 77.7 Lymphocytes (%) (Auto) 14.9 Monocytes (%) (Auto) 4.5 Eosinophils (%) (Auto) 1.9 Basophils (%) (Auto) 1.0 Neutrophils # (Auto) 10.5 Lymphocytes # (Auto) 2.0 Monocytes # (Auto) 0.6 Eosinophils # (Auto) 0.3 Basophils # (Auto) 0.1 CBC Comment AUTO DIFF Differential Comment AUTO DIFF CONFIRMED Platelet Estimate NORMAL Platelet Morphology Comment NORMAL Red Cell Morphology Comment NORMAL Blood Urea Nitrogen 17 Creatinine 1.07 Random Glucose 103 Total Protein 6.0 Albumin 2.4 Calcium Level 8.2 Alkaline Phosphatase 61 Aspartate Amino Transf (AST/SGOT) 29 Alanine Aminotransferase (ALT/SGPT) 19 Total Bilirubin 1.0 Sodium Level 133 Potassium Level 3.2 Chloride Level 94 Carbon Dioxide Level 32.4 Anion Gap 7 Estimat Glomerular Filtration Rate 49 Random Vancomycin Level 12.8 Date/Time Source Procedure Growth Status 12/24/16 16:46 Blood Peripheral Aerobic Blood Culture Pending Received 12/24/16 16:46 Blood Peripheral Anaerobic Blood Culture Pending Received 12/23/16 07:25 Urine Catheterized Urine Urine Culture - Preliminary IMMATURE GROWTH - REINCUBATE Resulted Sid Marquez PhD Dec 24, 2016 22:24
[2016-12-25] VITALS (7 sets, daily range): BP systolic 133–175; BP diastolic 60–75; PULSE 58–79; RESP 17–19; TEMP 97.3–98.4; O2SAT 94–100
[2016-12-25] MEDS: CHLORHEXIDINE GLUCONATE 2 % 1 PACK (2 CLOTHS)(taper/protocol) TOPICAL SCH (02:09)
[2016-12-25] MEDS: PIPERACIL-TAZO 3.375 GM PREMIX 50 ML IV SCH ×3 (07:00→23:42)
[2016-12-25] MEDS: predniSONE 10 MG TAB PO SCH (09:07)
[2016-12-25] MEDS: PANTOPRAZOLE SOD 40 MG DELAYED RELEASE TAB PO SCH ×2 (09:09→20:37)
[2016-12-25] MEDS: FUROSEMIDE 20 MG TAB PO SCH (09:09)
[2016-12-25] MEDS: GABAPENTIN 300 MG CAP PO SCH ×3 (09:09→17:28)
[2016-12-25] MEDS: ASPIRIN 325 MG TAB PO SCH (09:10)
[2016-12-25] MEDS: METOPROLOL TARTRATE 100 MG TAB PO SCH ×2 (09:10→20:37)
[2016-12-25] MEDS: LOSARTAN 50 MG TAB PO SCH (09:10)
[2016-12-25] MEDS: LACTOBACILLUS ACIDOPHILUS TAB PO SCH ×2 (09:10→20:37)
[2016-12-25] MEDS: SODIUM CHLORIDE 0.9% FLUSH 10 ML FLUSH IV FLUSH SCH ×2 (09:10→20:38)
--- NOTE | 2016-12-25 12:00 | PD.CARD.PN ---
Subjective Subjective Remarks Shoulders hurt. No other complaints Objective Medications Current Medications Medications (Trade) Dose Ordered Sig/Yuly Route Start Time Stop Time Status Last Admin Diltiazem HCl 125 mg/Sodium Chloride 125 ml @ 5 mls/hr TITRATE PRN IV 12/23/16 09:00 12/23/16 09:27 (NS Flush) 2 ml UNSCH PRN IV FLUSH 12/23/16 12:45 12/24/16 08:40 (NS Flush) 2 ml BID IV FLUSH 12/23/16 21:00 12/25/16 09:10 (Tylenol) 650 mg Q4H PRN PO 12/23/16 12:45 (Zofran Inj) 4 mg Q6H PRN IVP 12/23/16 12:45 (Tylenol) 650 mg Q6H PRN PO 12/23/16 12:45 (Narcan Inj) 0.4 mg UNSCH PRN IV PUSH 12/23/16 12:45 (Milk Of Magnesia Liq) 30 ml Q12H PRN PO 12/23/16 12:45 (Duoneb Neb) 1 ampule Q2HR NEB PRN NEB 12/23/16 12:45 Piperacillin Sod/ Tazobactam Sod 50 ml @ 100 mls/hr Q8H IV 12/23/16 15:00 12/25/16 07:00 Pharmacy Profile Note 0 ml @ 0 mls/hr UNSCH OTHER 12/23/16 13:45 (Lactinex) 1 tab Q12HR PO 12/23/16 21:00 12/25/16 09:10 (Elavil) 10 mg HS PO 12/23/16 21:00 12/24/16 21:06 (Aspirin) 325 mg DAILY PO 12/24/16 09:00 12/25/16 09:10 (Neurontin) 300 mg TID PO 12/23/16 18:00 12/25/16 09:09 (Synthroid) 50 mcg DAILY@0600 PO 12/24/16 06:00 12/24/16 05:45 (Cozaar) 50 mg DAILY PO 12/24/16 09:00 12/25/16 09:10 (Lopressor) 100 mg BID PO 12/23/16 21:00 12/25/16 09:10 (Roxicodone) 5 mg Q6H PRN PO 12/23/16 13:45 12/24/16 10:30 (Protonix) 40 mg BID PO 12/23/16 21:00 12/25/16 09:09 (Lasix) 20 mg DAILY PO 12/24/16 09:00 12/25/16 09:09 Miscellaneous Information Patient in critical care unit? Ass... Q361D .XX 12/23/16 19:15 12/23/16 19:15 (Chlorhexidine 2% Cloth) 3 pack DAILY@04 TOPICAL 12/24/16 04:00 12/28/16 04:01 12/24/16 04:00 (Chlorhexidine 2% Cloth) 3 pack UNSCH PRN TOPICAL 12/23/16 19:30 12/28/16 19:15 (Deltasone) 20 mg DAILY PO 12/24/16 09:00 12/25/16 09:07 Vancomycin HCl 1500 mg/Sodium Chloride 515 ml @ 250 mls/hr Q24H IV 12/24/16 12:00 12/24/16 11:51 Miscellaneous Information SPECIFIC LAB TO BE DRAWN:VANCOMYCIN TROUGH DATE TO... ONCE ONCE .XX 12/26/16 11:45 12/26/16 11:46 Vital Signs / I&O Vital Signs Date Time Temp Pulse Resp B/P (MAP) Pulse Ox O2 Delivery O2 Flow Rate FiO2 12/25/16 08:00 97.5 69 17 175/75 (108) 100 12/25/16 04:00 97.6 58 17 155/70 (98) 100 12/25/16 00:25 97 Nasal Cannula 4.00 12/25/16 00:00 97.4 79 19 138/66 (90) 100 12/24/16 20:20 Nasal Cannula 3.00 12/24/16 20:00 97.6 83 19 120/62 (81) 98 12/24/16 17:35 Nasal Cannula 3.00 12/24/16 16:01 98.1 78 20 164/67 (99) 100 12/24/16 13:00 99.3 83 19 152/69 (96) 95 12/24/16 12:00 91 12/24/16 12:00 98.3 91 19 136/58 (84) 100 I/O 10/10/17 12/24/16 12/24/16 12/25/16 12/25/16 12/25/16 07:00 15:00 23:00 07:00 15:00 23:00 Intake Total 300 ml 1223 ml 290 ml 580 ml Output Total 350 ml 225 ml Balance -50 ml 998 ml 290 ml 580 ml Intake Oral 200 ml 708 ml 240 ml 480 ml IV Total 100 ml 515 ml 50 ml 100 ml Output Urine Total 350 ml 225 ml # Voids 3 3 # Bowel Movements 0 0 Physical Exam GENERAL: Well developed, obese. No acute distress. HEENT: No JVD. CHEST: Clear, Unlabored respiratory effort. CARDIAC: Regular rate and rhythm without S3, S4, 2/6 FREDRICK (doubt severe ) ABDOMEN: Soft, nontender, no hepatosplenomegaly. Bowel sounds present. EXTREMITIES: No clubbing, cyanosis. Trace edema (improved). Assessment and Plan Problem List: (1) Coronary artery disease ICD Codes: I25.10 - Atherosclerotic heart disease of [place] coronary artery without angina pectoris Plan: stable (2) History of mitral valve replacement with bioprosthetic valve ICD Codes: Z95.3 - Presence of xenogenic heart valve Plan: stable (3) Paroxysmal atrial fibrillation ICD Codes: I48.0 - Paroxysmal atrial fibrillation Plan: no recurrence (4) Aortic valve stenosis ICD Codes: I35.0 - Nonrheumatic aortic (valve) stenosis Plan: Despite echo, I think this is only mild Damián Martinez MD Dec 25, 2016 12:00
--- NOTE | 2016-12-25 13:24 | HHI.PR ---
Subjective Remarks Follow-up sepsis/bacteremia 12/25/16-patient seen and examined, she had one episode of fall yesterday without any head trauma. Currently afebrile. She complains of shoulder pains. Daughter by the bedside. Objective Vitals Vital Signs Date Time Temp Pulse Resp B/P (MAP) Pulse Ox O2 Delivery O2 Flow Rate FiO2 12/25/16 12:00 98.4 68 17 133/60 (84) 100 12/25/16 08:00 97.5 69 17 175/75 (108) 100 12/25/16 04:00 97.6 58 17 155/70 (98) 100 12/25/16 00:25 97 Nasal Cannula 4.00 12/25/16 00:00 97.4 79 19 138/66 (90) 100 12/24/16 20:20 Nasal Cannula 3.00 12/24/16 20:00 97.6 83 19 120/62 (81) 98 12/24/16 17:35 Nasal Cannula 3.00 12/24/16 16:01 98.1 78 20 164/67 (99) 100 I/O 12/24/16 12/24/16 12/24/16 12/25/16 12/25/16 12/25/16 07:00 15:00 23:00 07:00 15:00 23:00 Intake Total 300 ml 1223 ml 290 ml 580 ml Output Total 350 ml 225 ml Balance -50 ml 998 ml 290 ml 580 ml Intake Oral 200 ml 708 ml 240 ml 480 ml IV Total 100 ml 515 ml 50 ml 100 ml Output Urine Total 350 ml 225 ml # Voids 3 3 # Bowel Movements 0 0 Result Diagram: 12/24/16 0501 12/24/16 0501 Imaging Last Impressions Lower Extremity Ultrasound 12/23/16712 Signed Impressions: Service Date/Time: Friday, December 23, 2016 08:02 - CONCLUSION: Normal examination. No evidence of DVT Aneesh Bello MD Chest X-Ray 12/23/16712 Signed Impressions: Service Date/Time: Friday, December 23, 2016 09:06 - CONCLUSION: Pacer, mild compensated cardiomegaly. Negative for pneumothorax. Homero Guerra MD FACR Thoracic Spine CT 12/23/16 0000 Signed Impressions: Service Date/Time: Friday, December 23, 2016 20:48 - CONCLUSION: Moderate degenerative changes as described above. There is no evidence of acute fracture. . Rick Figueroa MD Lumbar Spine CT 12/23/16 0000 Signed Impressions: Service Date/Time: Friday, December 23, 2016 20:48 - CONCLUSION: 1. Moderate degenerative changes as described above. There is no evidence of acute fracture. 2. Moderate spinal canal stenosis at L2-L3. Rick Figueroa MD Cervical Spine CT 12/23/16 0000 Signed Impressions: Service Date/Time: Friday, December 23, 2016 20:42 - CONCLUSION: 1. Moderate degenerative changes as described above. There is no evidence of acute fracture. Rick Figueroa MD Objective Remarks GENERAL: NAD SKIN: Warm and dry. Multiple ecchymoses to upper extremities HEAD: Normocephalic. EYES: No scleral icterus. No injection or drainage. NECK: Supple, trachea midline. No JVD or lymphadenopathy. CARDIOVASCULAR: Regular rate and rhythm with III/ RESPIRATORY: Breath sounds equal bilaterally. No accessory muscle use. GASTROINTESTINAL: Abdomen soft, non-tender, nondistended. MUSCULOSKELETAL: No cyanosis, or edema. BACK: Nontender without obvious deformity. No CVA tenderness. A/P Problem List: (1) Sepsis ICD Code: A41.9 - Sepsis, unspecified organism (2) UTI (urinary tract infection) ICD Code: N39.0 - Urinary tract infection, site not specified (3) CHF (congestive heart failure) ICD Code: I50.9 - Heart failure, unspecified Status: Acute (4) Paroxysmal atrial fibrillation ICD Code: I48.0 - Paroxysmal atrial fibrillation (5) Bacteremia due to Gram-positive bacteria ICD Code: R78.81 - Bacteremia Assessment and Plan Patient is an 86-year-old female with primary medical history of hypothyroidism , HTN, CHF who came in due to hospital brought in by daughter secondary to complaints of bilateral lower extremity pain, swelling, decline in mental status. Sepsis, severe UTI Bacteremia - Currently on Zosyn and vancomycin per ID, pending repeat blood culture report - BCX positive for Gram+ cocci and streptococus. Consult ID. - patient with hx of mitral valve replacement with bioprosthetic valve - ESR 56, CRP 13 - Patient has been on prolonged use of prednisone, immunocompromised. 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 Marquez for Lyme's disease, nerve tests, other autoimmune disorders - ESR 56, CRP 13 - Neurology following, appreciate assistance. Workup in progress. Prednisone 20mg daily. CT of the cervical, thoracic and lumbar spine ordered by neuro results of which showing moderate degenerative changes throughout the spine with moderate spinal canal stenosis at L2-3. Neuro considering LP. - Continue pain management with gabapentin, morphine sulfate IV, oxycodone Paroxysmal A. fib with RVR, resolved Hx of mitral valve replacement with bioprosthetic valve - Reported to have heart rate of 200s - Patient has a permanent pacemaker and was interrogated. Interrogation was within normal - Status post Cardizem drip titrate to heart <100 - Cardiology following, appreciate their assistance. Now in NSR. No anticoagulation recommended at this time. If afib recurs, will need to begin OAC. CHF, systolic, acute exacerbation, improving Bilateral lower extremity edema, improved - Chest x-ray showed pacer, mild compensated cardiomegaly. Negative for pneumothorax - BNP 769 - Lasix 20mg po daily. Monitor electrolytes. - 2-D echo ordered showing moderate to severely reduced EF 35-40%, moderate to severe aortic valve stenosis HTN HLD - BP controlled - Continue metoprolol 100 mg twice a day, losartan 50 mg daily - Monitor BP trend Hypothyroidism - Continued home medications levothyroxine - TSH 6.330 CAROL ANN - mild - avoid nephrotoxins - Monitor closely especially while on vancomycin - Encourage by mouth intake Hypokalemia - Repletion ordered - Monitor electrolyte Rule out DVT Bilateral lower extremity edema, pain Generalized weakness, unable to ambulate - Doppler studies of bilateral lower extremity normal examination No evidence of DVT. - PT/OT eval/tx Fall precaution PT consult to treat and eval DVT prop SCDs GI prop pantoprazole Problem Qualifiers (1) CHF (congestive heart failure): Qualified Codes: I50.9 - Heart failure, unspecified Diomedes Gray MD Dec 25, 2016 13:24
[2016-12-25] MEDS ORDERED: POTASSIUM CHLORIDE 25 MEQ EFFERVESCENT TAB PO ONE (13:30)
[2016-12-25] MEDS: VANCOMYCIN INJ 1,500 MG in SODIUM CHLORID 0.9% 500 ML INJ 500 ML IV SCH (13:30)
--- NOTE | 2016-12-25 14:18 | HHI.IDPN ---
Subjective Subjective Remarks Patient is an 86-year-old female, but into the hospital for evaluation of bilateral lower extremity pain with swelling, generalized weakness, and was mention of a decline in mental status. Patient is not a very good historian. She denies any respiratory complaint, no chest pain or shortness of breath. There is been no nausea or vomiting, diarrhea or constipation. She denies any dysuria. From the records, looks like the patient was hospitalized in [place] and evaluated for her bilateral upper extremity pain, right worse than the left. She was diagnosed to have brachial plexitis and was treated with steroids. From the hospital in [place] she went to a rehabilitation facility, and about 7 months ago she moved to [place] and she has been staying with her daughter. According to the daughter the patient improved some with the steroids. The steroid dose has been decreasing. Patient has seen Dr Marquez, and she is actually being reevaluated for her weakness and pain. She has now been experiencing pain and weakness in both LE. She has not been able to do much as far as ambulation due to the pain. She has seen her lean engineer recently and she had some low grade temps at that time, and was told that she has UTI. On presentation her temperature was up to 102.2. She also had A. fib on presentation, and converted to NSR. 2 blood cultures were done, and they are now reported as growing gram-positive cocci in pairs and chains. Temps now normal. Patient is getting neurological workup. She has had CT of the whole spine which showed degenerative disc disease. The UVC is elevated. Sedimentation rate is 56, C-reactive protein is 13. UA is okay. Infectious disease consultation has been requested to assist in evaluation and treatment of her positive blood cultures Notes reviewed Temps ok Up in chair, she did some walking in her room Currently no pain in UE or LE BC with Strep viridans Repeat BC negative so far Antibiotics Vanco Zosyn Lines PIV Past Medical History Hypothyroidism Hypertension Hyperlipidemia CAD A. fib Brachial plexitis Past Surgical History Permanent pacemaker Status post mitral valve replacement, with porcine valve Appendectomy Hysterectomy 2 shoulder replacement Right knee replacement Allergies: Coded Allergies: Iodinated Contrast- Oral and IV Dye (Unverified Allergy, Severe, EYES SWELLING, 12/23/16) iodine (Unverified Allergy, Severe, EYES SWELLING, 12/23/16) potassium iodide (Unverified Allergy, Severe, EYES SWELLING, 12/23/16) povidone-iodine (Unverified Allergy, Severe, EYES SWELLING, 12/23/16) sodium iodide (Unverified Allergy, Severe, EYES SWELLING, 12/23/16) sodium iodide (Unverified Allergy, Severe, EYES SWELLING, 12/23/16) Uncoded Allergies: IVP DYE (Allergy, Unknown, EYES SWELLING, 05/17/08) Objective . Vital Signs Date Time Temp Pulse Resp B/P (MAP) Pulse Ox O2 Delivery O2 Flow Rate FiO2 12/25/16 12:00 98.4 68 17 133/60 (84) 100 12/25/16 08:00 62 12/25/16 08:00 97.5 69 17 175/75 (108) 100 12/25/16 08:00 Room Air 12/25/16 04:00 97.6 58 17 155/70 (98) 100 12/25/16 00:25 97 Nasal Cannula 4.00 12/25/16 00:00 97.4 79 19 138/66 (90) 100 12/24/16 20:20 Nasal Cannula 3.00 12/24/16 20:00 97.6 83 19 120/62 (81) 98 12/24/16 17:35 Nasal Cannula 3.00 12/24/16 16:01 98.1 78 20 164/67 (99) 100 . Laboratory Tests Test 12/24/16 05:01 White Blood Count 13.6 TH/MM3 Red Blood Count 3.13 MIL/MM3 Hemoglobin 9.1 GM/DL Hematocrit 27.8 % Mean Corpuscular Volume 88.8 FL Mean Corpuscular Hemoglobin 29.0 PG Mean Corpuscular Hemoglobin Concent 32.7 % Red Cell Distribution Width 16.7 % Platelet Count 162 TH/MM3 Mean Platelet Volume 8.0 FL Neutrophils (%) (Auto) 77.7 % Lymphocytes (%) (Auto) 14.9 % Monocytes (%) (Auto) 4.5 % Eosinophils (%) (Auto) 1.9 % Basophils (%) (Auto) 1.0 % Neutrophils # (Auto) 10.5 TH/MM3 Lymphocytes # (Auto) 2.0 TH/MM3 Monocytes # (Auto) 0.6 TH/MM3 Eosinophils # (Auto) 0.3 TH/MM3 Basophils # (Auto) 0.1 TH/MM3 CBC Comment AUTO DIFF Differential Comment AUTO DIFF CONFIRMED Platelet Estimate NORMAL Platelet Morphology Comment NORMAL Red Cell Morphology Comment NORMAL Laboratory Tests Test 12/24/16 05:01 Blood Urea Nitrogen 17 MG/DL Creatinine 1.07 MG/DL Random Glucose 103 MG/DL Total Protein 6.0 GM/DL Albumin 2.4 GM/DL Calcium Level 8.2 MG/DL Alkaline Phosphatase 61 U/L Aspartate Amino Transf (AST/SGOT) 29 U/L Alanine Aminotransferase (ALT/SGPT) 19 U/L Total Bilirubin 1.0 MG/DL Sodium Level 133 MEQ/L Potassium Level 3.2 MEQ/L Chloride Level 94 MEQ/L Carbon Dioxide Level 32.4 MEQ/L Anion Gap 7 MEQ/L Estimat Glomerular Filtration Rate 49 ML/MIN Microbiology Date/Time Source Procedure Growth Status 12/24/16 16:46 Blood Peripheral Aerobic Blood Culture - Preliminary NO GROWTH IN 1 DAY Resulted 12/24/16 16:46 Blood Peripheral Anaerobic Blood Culture - Preliminary NO GROWTH IN 1 DAY Resulted 12/24/16 16:46 Blood Peripheral Aerobic Blood Culture - Preliminary NO GROWTH IN 1 DAY Resulted 12/24/16 16:46 Blood Peripheral Anaerobic Blood Culture - Preliminary NO GROWTH IN 1 DAY Resulted 12/23/16 07:18 Blood Peripheral Aerobic Blood Culture - Preliminary Streptococcus Species Resulted 12/23/16 07:18 Anaerobic Blood Culture - Preliminary Viridans Streptococcus Grp Resulted 12/23/16 07:15 Blood Peripheral Aerobic Blood Culture - Final Viridans Streptococcus Grp Complete 12/23/16 07:15 Anaerobic Blood Culture - Final Viridans Streptococcus Grp Complete 12/23/16 07:25 Urine Catheterized Urine Urine Culture - Final Aerococcus Urinae Complete Imaging Lower Extremity Ultrasound 12/23/16712 Signed Impressions: Service Date/Time: Friday, December 23, 2016 08:02 - CONCLUSION: Normal examination. No evidence of DVT Aneesh Bello MD Chest X-Ray 12/23/16712 Signed Impressions: Service Date/Time: Friday, December 23, 2016 09:06 - CONCLUSION: Pacer, mild compensated cardiomegaly. Negative for pneumothorax. Homero Guerra MD FACR Thoracic Spine CT 12/23/16 0000 Signed Impressions: Service Date/Time: Friday, December 23, 2016 20:48 - CONCLUSION: Moderate degenerative changes as described above. There is no evidence of acute fracture. . Rick Figueroa MD Lumbar Spine CT 12/23/16 0000 Signed Impressions: Service Date/Time: Friday, December 23, 2016 20:48 - CONCLUSION: 1. Moderate degenerative changes as described above. There is no evidence of acute fracture. 2. Moderate spinal canal stenosis at L2-L3. Rick Figueroa MD Cervical Spine CT 12/23/16 0000 Signed Impressions: Service Date/Time: Friday, December 23, 2016 20:42 - CONCLUSION: 1. Moderate degenerative changes as described above. There is no evidence of acute fracture. Rick Figueroa MD Physical Exam GENERAL: awake and alert, not in respiratory distress. Up in chair SKIN: Warm and dry. Has purpuric rash in both UE and both legs, no embolic lesions seen in hands or feet HEAD: Atraumatic. Normocephalic. No temporal wasting, or tenderness. EYES: [place] conjunctiva. No petechia or hemorrhage. No scleral icterus. No injection or drainage. EARS, NOSE AND THROAT: Nose without bleeding or purulent nasal discharge. Mucous membranes pink and moist. No oral lesions noted. She wears upper dentures and partial lower NECK: Trachea midline. Supple and not tender, no meningeal signs CARDIOVASCULAR: Regular rate and rhythm. Has murmur systolic at base of the heart. No rub. Sternotomy scar C/W surgical history. Pacer in her left upper chest with no evidence of infection RESPIRATORY: Clear to auscultation. Breath sounds equal bilaterally. No rales , wheezing or rhonchi. Decreased at the bases ABDOMEN: Soft, slightly round, non-tender, nondistended. Bowel sounds present and normoactive. No guarding. No rebound. No organomegaly. EXTREMITIES: No clubbing, cyanosis. Has some pitting edema in both feet, notable for the purpuric rash in forearms and legs. No joint effusion, has good ROM. No calf tenderness. Well perfused and warm. NEUROLOGICAL: Awake and alert. Cranial nerves grossly intact. Motor grossly within normal limits. PSYCHIATRIC: Normal affect, calm and cooperative. LINE: No evidence of infection Assessment & Plan Remarks IMPRESSION Strep viridans sepsis, on admission, very worrisome for endovascular infection - she is S/P MVR and has pacemaker, both done 2014 Atrial fib, now in NSR, due to fever, infection BUE and BLE pain, and weakness, etiology Confusion, due to sepsis RECOMMENDATION Continue Vanco Change Zosyn to Rocephin Repeat BC to document clearing Neuro work-up in progress Will D/W Dr Martinez about ALPHONSO - patient not surgical candidate if with PVE; but if with vegetation in pacer wires, ?then may need to look into removal of wires , and will discuss with cardio if patient candidate for that; vs chronic suppression Follow C/S Monitor progress Long discussion with daughter Shiela Romo MD Dec 25, 2016 14:18
[2016-12-25 16:08] LABS: AUTOMATED NEUTROPHIL # 12.8 TH/MM3 (1.8-7.7); BASOPHIL % 0.2 % (0.0-2.0); EOSINOPHIL # 0.1 TH/MM3 (0-0.4); EOSINOPHIL % 0.6 % (0.0-4.0); HEMATOCRIT 31.4 % (35.0-46.0); HEMO FLAGS DIFF FINAL; LYMPH % 8.7 % (9.0-44.0); LYMPHOCYTE # 1.3 TH/MM3 (1.0-4.8); MEAN CELL VOLUME 89.1 FL (80.0-100.0); MEAN CORPUSCULAR HEMOGLOBIN 28.3 PG (27.0-34.0); MEAN CORPUSCULAR HGB CONC 31.8 % (32.0-36.0); MONO % 3.1 % (0.0-8.0); NEUT % 87.4 % (16.0-70.0); PLATELET COUNT 191 TH/MM3 (150-450); RED BLOOD COUNT 3.52 MIL/MM3 (4.00-5.30); RED CELL DISTRIBUTION WIDTH 16.5 % (11.6-17.2); WHITE BLOOD COUNT 14.6 TH/MM3 (4.0-11.0)
[2016-12-25 16:27] LABS: BICARBONATE 29.6 MEQ/L (21.0-32.0); POTASSIUM 3.5 MEQ/L (3.5-5.1)
[2016-12-25] MEDS: AMITRIPTYLINE HCL 10 MG TAB PO SCH (20:37)
[2016-12-26] VITALS (9 sets, daily range): BP systolic 143–167; BP diastolic 64–71; PULSE 71–79; RESP 16–20; TEMP 97.8–98.3; O2SAT 90–100
[2016-12-26] MEDS: CHLORHEXIDINE GLUCONATE 2 % 1 PACK (2 CLOTHS)(taper/protocol) TOPICAL SCH (04:00)
[2016-12-26] MEDS: PIPERACIL-TAZO 3.375 GM PREMIX 50 ML IV SCH (06:00)
[2016-12-26] MEDS: LEVOTHYROXINE SODIUM 50 MCG TAB PO SCH (06:00)
[2016-12-26 07:35] LABS: AUTOMATED NEUTROPHIL # 9.3 TH/MM3 (1.8-7.7); BASOPHIL % 0.2 % (0.0-2.0); EOSINOPHIL % 0.1 % (0.0-4.0); HEMATOCRIT 26.1 % (35.0-46.0); HEMO FLAGS DIFF FINAL; LYMPH % 12.8 % (9.0-44.0); LYMPHOCYTE # 1.4 TH/MM3 (1.0-4.8); MEAN CELL VOLUME 88.8 FL (80.0-100.0); MEAN CORPUSCULAR HEMOGLOBIN 29.4 PG (27.0-34.0); MEAN CORPUSCULAR HGB CONC 33.2 % (32.0-36.0); MONO % 3.6 % (0.0-8.0); NEUT % 83.3 % (16.0-70.0); PLATELET COUNT 210 TH/MM3 (150-450); RED BLOOD COUNT 2.94 MIL/MM3 (4.00-5.30); RED CELL DISTRIBUTION WIDTH 16.4 % (11.6-17.2); WHITE BLOOD COUNT 11.2 TH/MM3 (4.0-11.0)
[2016-12-26 08:13] LABS: BICARBONATE 29.7 MEQ/L (21.0-32.0); POTASSIUM 3.3 MEQ/L (3.5-5.1)
[2016-12-26] MEDS: ASPIRIN 325 MG TAB PO SCH (08:50)
[2016-12-26] MEDS: LACTOBACILLUS ACIDOPHILUS TAB PO SCH ×2 (08:50→22:01)
[2016-12-26] MEDS: METOPROLOL TARTRATE 100 MG TAB PO SCH ×2 (08:51→22:01)
[2016-12-26] MEDS: predniSONE 10 MG TAB PO SCH (08:51)
[2016-12-26] MEDS: GABAPENTIN 300 MG CAP PO SCH ×3 (08:51→16:26)
[2016-12-26] MEDS: LOSARTAN 50 MG TAB PO SCH (08:51)
[2016-12-26] MEDS: FUROSEMIDE 20 MG TAB PO SCH (08:51)
[2016-12-26] MEDS: PANTOPRAZOLE SOD 40 MG DELAYED RELEASE TAB PO SCH ×2 (08:52→22:01)
[2016-12-26] MEDS: SODIUM CHLORIDE 0.9% FLUSH 10 ML FLUSH IV FLUSH SCH ×2 (08:56→21:00)
[2016-12-26] MEDS ORDERED: POTASSIUM CHLORIDE 25 MEQ EFFERVESCENT TAB PO ONE (11:45)
[2016-12-26] MEDS ORDERED: PHARMACY ORDERED LAB ONE (11:45)
--- NOTE | 2016-12-26 11:51 | HHI.PR ---
Subjective Remarks Follow-up sepsis/bacteremia 12/25/16-patient seen and examined, she had one episode of fall yesterday without any head trauma. Currently afebrile. She complains of shoulder pains. Daughter by the bedside. 12/26/16-patient seen and examined, currently afebrile. Daughter is concerned about patient's pain and would like to speak to Dr. Marquez. Patient is alert and oriented to self not date and place however able to recall past experiences. Constipation resolved Objective Vitals Vital Signs Date Time Temp Pulse Resp B/P (MAP) Pulse Ox O2 Delivery O2 Flow Rate FiO2 12/26/16 08:36 96 Nasal Cannula 3.00 12/26/16 08:00 98.3 72 18 163/70 (101) 90 12/26/16 04:00 97.8 71 16 145/64 (91) 92 12/26/16 00:00 97.9 79 18 143/65 (91) 94 12/26/16 00:00 Room Air 12/25/16 20:00 Room Air 12/25/16 20:00 76 12/25/16 16:00 97.8 68 18 137/64 (88) 94 12/25/16 12:00 98.4 68 17 133/60 (84) 100 I/O 12/25/16 12/25/16 12/25/16 12/26/16 12/26/16 12/26/16 07:00 15:00 23:00 07:00 15:00 23:00 Intake Total 580 ml 100 ml 1235 ml 480 ml Balance 580 ml 100 ml 1235 ml 480 ml Intake Oral 480 ml 720 ml 480 ml IV Total 100 ml 100 ml 515 ml # Voids 3 3 2 # Bowel Movements 0 1 2 Result Diagram: 12/26/1652912/26/16 0530 Objective Remarks GENERAL: NAD SKIN: Warm and dry. Multiple ecchymoses to upper extremities HEAD: Normocephalic. EYES: No scleral icterus. No injection or drainage. NECK: Supple, trachea midline. No JVD or lymphadenopathy. CARDIOVASCULAR: Regular rate and rhythm with III/ RESPIRATORY: Breath sounds equal bilaterally. No accessory muscle use. GASTROINTESTINAL: Abdomen soft, non-tender, nondistended. MUSCULOSKELETAL: No cyanosis, or edema. BACK: Nontender without obvious deformity. No CVA tenderness. A/P Problem List: (1) Sepsis ICD Code: A41.9 - Sepsis, unspecified organism (2) UTI (urinary tract infection) ICD Code: N39.0 - Urinary tract infection, site not specified (3) CHF (congestive heart failure) ICD Code: I50.9 - Heart failure, unspecified Status: Acute (4) Paroxysmal atrial fibrillation ICD Code: I48.0 - Paroxysmal atrial fibrillation (5) Bacteremia due to Gram-positive bacteria ICD Code: R78.81 - Bacteremia Assessment and Plan Patient is an 86-year-old female with primary medical history of hypothyroidism , HTN, CHF who came in due to hospital brought in by daughter secondary to complaints of bilateral lower extremity pain, swelling, decline in mental status. Sepsis, severe UTI Bacteremia - Currently on Zosyn and vancomycin per ID, repeat blood culture NTD - BCX positive for Gram+ cocci and streptococus. Consult ID. - patient with hx of mitral valve replacement with bioprosthetic valve - Patient has been on prolonged use of prednisone, immunocompromised. 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 Marquez for Lyme's disease, nerve tests, other autoimmune disorders - ESR 56, CRP 13 - Neurology following, appreciate assistance. Workup in progress. Prednisone 20mg daily. - Continue pain management with gabapentin, morphine sulfate IV, oxycodone Paroxysmal A. fib with RVR, resolved Hx of mitral valve replacement with bioprosthetic valve - Reported to have heart rate of 200s - Patient has a permanent pacemaker and was interrogated. Interrogation was within normal - Status post Cardizem drip titrate to heart <100 - Cardiology following, appreciate their assistance. Now in NSR. No anticoagulation recommended at this time. If afib recurs, will need to begin OAC. CHF, systolic, acute exacerbation, improved Bilateral lower extremity edema, improved - Lasix 20mg po daily. Monitor electrolytes. - 2-D echo ordered showing moderate to severely reduced EF 35-40%, moderate to severe aortic valve stenosis HTN HLD - BP controlled - Continue metoprolol 100 mg twice a day, losartan 50 mg daily - Monitor BP trend Hypothyroidism - Continued home medications levothyroxine - TSH 6.330 CAROL ANN - mild - avoid nephrotoxins - Monitor closely especially while on vancomycin - Encourage by mouth intake Hypokalemia - Repletion ordered - Monitor electrolyte Rule out DVT Bilateral lower extremity edema, pain Generalized weakness, unable to ambulate - Doppler studies of bilateral lower extremity normal examination No evidence of DVT. - PT/OT eval/tx Fall precaution PT consult to treat and eval DVT prop SCDs GI prop pantoprazole Problem Qualifiers (1) CHF (congestive heart failure): Qualified Codes: I50.9 - Heart failure, unspecified Diomedes Gray MD Dec 26, 2016 11:51
[2016-12-26] MEDS: VANCOMYCIN INJ 1,500 MG in SODIUM CHLORID 0.9% 500 ML INJ 500 ML IV SCH (13:09)
--- NOTE | 2016-12-26 14:13 | HHI.IDPN ---
Subjective Subjective Remarks Patient is an 86-year-old female, but into the hospital for evaluation of bilateral lower extremity pain with swelling, generalized weakness, and was mention of a decline in mental status. Patient is not a very good historian. She denies any respiratory complaint, no chest pain or shortness of breath. There is been no nausea or vomiting, diarrhea or constipation. She denies any dysuria. From the records, looks like the patient was hospitalized in [place] and evaluated for her bilateral upper extremity pain, right worse than the left. She was diagnosed to have brachial plexitis and was treated with steroids. From the hospital in [place] she went to a rehabilitation facility, and about 7 months ago she moved to [place] and she has been staying with her daughter. According to the daughter the patient improved some with the steroids. The steroid dose has been decreasing. Patient has seen Dr Marquez, and she is actually being reevaluated for her weakness and pain. She has now been experiencing pain and weakness in both LE. She has not been able to do much as far as ambulation due to the pain. She has seen her environmental manager recently and she had some low grade temps at that time, and was told that she has UTI. On presentation her temperature was up to 102.2. She also had A. fib on presentation, and converted to NSR. 2 blood cultures were done, and they are now reported as growing gram-positive cocci in pairs and chains. Temps now normal. Patient is getting neurological workup. She has had CT of the whole spine which showed degenerative disc disease. The UVC is elevated. Sedimentation rate is 56, C-reactive protein is 13. UA is okay. Infectious disease consultation has been requested to assist in evaluation and treatment of her positive blood cultures Notes reviewed Temps ok BC with Strep viridans Repeat BC negative so far WBC improving Antibiotics Vanco Zosyn Lines PIV Past Medical History Hypothyroidism Hypertension Hyperlipidemia CAD A. fib Brachial plexitis Past Surgical History Permanent pacemaker Status post mitral valve replacement, with porcine valve Appendectomy Hysterectomy 2 shoulder replacement Right knee replacement Allergies: Coded Allergies: Iodinated Contrast- Oral and IV Dye (Unverified Allergy, Severe, EYES SWELLING, 12/23/16) iodine (Unverified Allergy, Severe, EYES SWELLING, 12/23/16) potassium iodide (Unverified Allergy, Severe, EYES SWELLING, 12/23/16) povidone-iodine (Unverified Allergy, Severe, EYES SWELLING, 12/23/16) sodium iodide (Unverified Allergy, Severe, EYES SWELLING, 12/23/16) sodium iodide (Unverified Allergy, Severe, EYES SWELLING, 12/23/16) Uncoded Allergies: IVP DYE (Allergy, Unknown, EYES SWELLING, 05/17/08) Objective . Vital Signs Date Time Temp Pulse Resp B/P (MAP) Pulse Ox O2 Delivery O2 Flow Rate FiO2 12/26/16 12:00 98.1 78 18 158/70 (99) 100 12/26/16 11:52 Room Air 12/26/16 08:36 96 Nasal Cannula 3.00 12/26/16 08:00 98.3 72 18 163/70 (101) 90 12/26/16 04:00 97.8 71 16 145/64 (91) 92 12/26/16 00:00 97.9 79 18 143/65 (91) 94 12/26/16 00:00 Room Air 12/25/16 20:00 Room Air 12/25/16 20:00 76 12/25/16 16:00 97.8 68 18 137/64 (88) 94 . Laboratory Tests Test 12/25/16 15:17 12/26/16 05:30 White Blood Count 14.6 TH/MM3 11.2 TH/MM3 Red Blood Count 3.52 MIL/MM3 2.94 MIL/MM3 Hemoglobin 10.0 GM/DL 8.7 GM/DL Hematocrit 31.4 % 26.1 % Mean Corpuscular Volume 89.1 FL 88.8 FL Mean Corpuscular Hemoglobin 28.3 PG 29.4 PG Mean Corpuscular Hemoglobin Concent 31.8 % 33.2 % Red Cell Distribution Width 16.5 % 16.4 % Platelet Count 191 TH/MM3 210 TH/MM3 Mean Platelet Volume 7.9 FL 7.7 FL Neutrophils (%) (Auto) 87.4 % 83.3 % Lymphocytes (%) (Auto) 8.7 % 12.8 % Monocytes (%) (Auto) 3.1 % 3.6 % Eosinophils (%) (Auto) 0.6 % 0.1 % Basophils (%) (Auto) 0.2 % 0.2 % Neutrophils # (Auto) 12.8 TH/MM3 9.3 TH/MM3 Lymphocytes # (Auto) 1.3 TH/MM3 1.4 TH/MM3 Monocytes # (Auto) 0.5 TH/MM3 0.4 TH/MM3 Eosinophils # (Auto) 0.1 TH/MM3 0.0 TH/MM3 Basophils # (Auto) 0.0 TH/MM3 0.0 TH/MM3 CBC Comment DIFF FINAL DIFF FINAL Differential Comment Laboratory Tests Test 12/25/16 15:17 12/26/16 05:30 Blood Urea Nitrogen 15 MG/DL 13 MG/DL Creatinine 0.88 MG/DL 0.79 MG/DL Random Glucose 144 MG/DL 128 MG/DL Calcium Level 8.2 MG/DL 8.6 MG/DL Sodium Level 138 MEQ/L 139 MEQ/L Potassium Level 3.5 MEQ/L 3.3 MEQ/L Chloride Level 100 MEQ/L 100 MEQ/L Carbon Dioxide Level 29.6 MEQ/L 29.7 MEQ/L Anion Gap 8 MEQ/L 9 MEQ/L Estimat Glomerular Filtration Rate 61 ML/MIN 69 ML/MIN Microbiology Date/Time Source Procedure Growth Status 12/25/16 15:17 Blood Peripheral Aerobic Blood Culture - Preliminary NO GROWTH IN 1 DAY Resulted 12/25/16 15:17 Blood Peripheral Anaerobic Blood Culture - Final QNS - SEE AEROBE REPORT Resulted 12/24/16 16:46 Blood Peripheral Aerobic Blood Culture - Preliminary NO GROWTH IN 2 DAYS Resulted 12/24/16 16:46 Blood Peripheral Anaerobic Blood Culture - Preliminary NO GROWTH IN 2 DAYS Resulted 12/24/16 16:46 Blood Peripheral Aerobic Blood Culture - Preliminary NO GROWTH IN 2 DAYS Resulted 12/24/16 16:46 Blood Peripheral Anaerobic Blood Culture - Preliminary NO GROWTH IN 2 DAYS Resulted Imaging Lower Extremity Ultrasound 12/23/16712 Signed Impressions: Service Date/Time: Friday, December 23, 2016 08:02 - CONCLUSION: Normal examination. No evidence of DVT Aneesh Bello MD Chest X-Ray 12/23/16712 Signed Impressions: Service Date/Time: Friday, December 23, 2016 09:06 - CONCLUSION: Pacer, mild compensated cardiomegaly. Negative for pneumothorax. Homero Guerra MD FACR Thoracic Spine CT 12/23/16 0000 Signed Impressions: Service Date/Time: Friday, December 23, 2016 20:48 - CONCLUSION: Moderate degenerative changes as described above. There is no evidence of acute fracture. . Rick Figueroa MD Lumbar Spine CT 12/23/16 0000 Signed Impressions: Service Date/Time: Friday, December 23, 2016 20:48 - CONCLUSION: 1. Moderate degenerative changes as described above. There is no evidence of acute fracture. 2. Moderate spinal canal stenosis at L2-L3. Rick Figueroa MD Cervical Spine CT 12/23/16 0000 Signed Impressions: Service Date/Time: Friday, December 23, 2016 20:42 - CONCLUSION: 1. Moderate degenerative changes as described above. There is no evidence of acute fracture. Rick Figueroa MD Physical Exam GENERAL: awake and alert, not in respiratory distress. Up in chair SKIN: Warm and dry. Has purpuric rash in both UE and both legs, no embolic lesions seen in hands or feet HEAD: Atraumatic. Normocephalic. No temporal wasting, or tenderness. EYES: [place] conjunctiva. No petechia or hemorrhage. No scleral icterus. No injection or drainage. EARS, NOSE AND THROAT: Nose without bleeding or purulent nasal discharge. Mucous membranes pink and moist. No oral lesions noted. She wears upper dentures and partial lower NECK: Trachea midline. Supple and not tender, no meningeal signs CARDIOVASCULAR: Regular rate and rhythm. Has murmur systolic at base of the heart. No rub. Sternotomy scar C/W surgical history. Pacer in her left upper chest with no evidence of infection RESPIRATORY: Clear to auscultation. Breath sounds equal bilaterally. No rales , wheezing or rhonchi. Decreased at the bases ABDOMEN: Soft, slightly round, non-tender, nondistended. Bowel sounds present and normoactive. No guarding. No rebound. No organomegaly. EXTREMITIES: No clubbing, cyanosis. Has some pitting edema in both feet, notable for the purpuric rash in forearms and legs. No calf tenderness. Well perfused and warm. NEUROLOGICAL: Awake and alert. Cranial nerves grossly intact. Motor grossly within normal limits. PSYCHIATRIC: Normal affect, calm and cooperative. LINE: No evidence of infection Assessment & Plan Remarks IMPRESSION Strep viridans sepsis, on admission, very worrisome for endovascular infection - she is S/P MVR and has pacemaker, both done 2014 Atrial fib, now in NSR, due to fever, infection BUE and BLE pain, and weakness, etiology Confusion, due to sepsis RECOMMENDATION Change Abx to Rocephin Stop Vanco and Zosyn Follow repeat BC Monitor progress Shiela Romo MD Dec 26, 2016 14:13
[2016-12-26] MEDS: cefTRIAXone INJ 2,000 MG in SODIUM CHLORIDE 0.9% INJ 100 ML IV SCH (16:25)
[2016-12-26] MEDS: AMITRIPTYLINE HCL 10 MG TAB PO SCH (22:01)
[2016-12-27] VITALS (10 sets, daily range): BP systolic 127–173; BP diastolic 59–83; PULSE 63–90; RESP 18–20; TEMP 97.8–98.4; O2SAT 92–100
[2016-12-27 03:51] LABS: STRIATED MUCLE AB TITER ND (<1:40)
[2016-12-27] MEDS: CHLORHEXIDINE GLUCONATE 2 % 1 PACK (2 CLOTHS)(taper/protocol) TOPICAL SCH (04:00)
[2016-12-27] MEDS: LEVOTHYROXINE SODIUM 50 MCG TAB PO SCH (05:57)
[2016-12-27] MEDS: LACTOBACILLUS ACIDOPHILUS TAB PO SCH ×2 (08:39→21:37)
[2016-12-27] MEDS: LOSARTAN 50 MG TAB PO SCH (08:39)
[2016-12-27] MEDS: GABAPENTIN 300 MG CAP PO SCH ×3 (08:39→18:15)
[2016-12-27] MEDS: METOPROLOL TARTRATE 100 MG TAB PO SCH ×2 (08:39→21:37)
[2016-12-27] MEDS: PANTOPRAZOLE SOD 40 MG DELAYED RELEASE TAB PO SCH ×2 (08:40→21:37)
[2016-12-27] MEDS: ASPIRIN 325 MG TAB PO SCH (08:40)
[2016-12-27] MEDS: predniSONE 10 MG TAB PO SCH (08:40)
[2016-12-27] MEDS: FUROSEMIDE 20 MG TAB PO SCH (08:40)
[2016-12-27] MEDS: SODIUM CHLORIDE 0.9% FLUSH 10 ML FLUSH IV FLUSH SCH ×2 (08:40→21:38)
--- NOTE | 2016-12-27 10:05 | HHI.PR ---
Subjective Remarks Follow-up sepsis/bacteremia 12/25/16-patient seen and examined, she had one episode of fall yesterday without any head trauma. Currently afebrile. She complains of shoulder pains. Daughter by the bedside. 12/26/16-patient seen and examined, currently afebrile. Daughter is concerned about patient's pain and would like to speak to Dr. Marquez. Patient is alert and oriented to self not date and place however able to recall past experiences. Constipation resolved 12/27/16-patient seen and examined, afebrile, no acute event overnight. Working with PT this morning. Denies any pain to lower extremities Objective Vitals Vital Signs Date Time Temp Pulse Resp B/P (MAP) Pulse Ox O2 Delivery O2 Flow Rate FiO2 12/27/16 06:00 98.0 67 20 145/65 (91) 96 12/27/16 00:00 97.9 90 20 173/83 (113) 96 12/27/16 00:00 Nasal Cannula 3.00 12/26/16 20:46 100 Nasal Cannula 3.00 12/26/16 20:01 72 12/26/16 20:00 97.9 77 20 159/67 (97) 97 12/26/16 20:00 Nasal Cannula 3.00 12/26/16 16:00 98.1 71 18 167/71 (103) 99 12/26/16 12:00 98.1 78 18 158/70 (99) 100 12/26/16 11:52 Room Air I/O 12/26/16 12/26/16 12/26/16 12/27/16 12/27/16 12/27/16 07:00 15:00 23:00 07:00 15:00 23:00 Intake Total 480 ml 500 ml 740 ml 520 ml Output Total 2 ml Balance 480 ml 500 ml 740 ml 518 ml Intake Oral 480 ml 540 ml 520 ml IV Total 500 ml 200 ml Output Urine Total 2 ml # Voids 2 3 # Bowel Movements 2 3 2 Result Diagram: 12/26/1630 12/26/16 0530 Objective Remarks GENERAL: NAD SKIN: Warm and dry. Multiple ecchymoses to upper extremities HEAD: Normocephalic. EYES: No scleral icterus. No injection or drainage. NECK: Supple, trachea midline. No JVD or lymphadenopathy. CARDIOVASCULAR: Regular rate and rhythm with III/ RESPIRATORY: Breath sounds equal bilaterally. No accessory muscle use. GASTROINTESTINAL: Abdomen soft, non-tender, nondistended. MUSCULOSKELETAL: No cyanosis, or edema. BACK: Nontender without obvious deformity. No CVA tenderness. A/P Problem List: (1) Sepsis ICD Code: A41.9 - Sepsis, unspecified organism (2) UTI (urinary tract infection) ICD Code: N39.0 - Urinary tract infection, site not specified (3) CHF (congestive heart failure) ICD Code: I50.9 - Heart failure, unspecified Status: Acute (4) Paroxysmal atrial fibrillation ICD Code: I48.0 - Paroxysmal atrial fibrillation (5) Bacteremia due to Gram-positive bacteria ICD Code: R78.81 - Bacteremia Assessment and Plan Patient is an 86-year-old female with primary medical history of hypothyroidism , HTN, CHF who came in due to hospital brought in by daughter secondary to complaints of bilateral lower extremity pain, swelling, decline in mental status. Sepsis, severe UTI Strep. Viridians Bacteremia - s/p Zosyn and vancomycin, now on Rocephin IV daily per ID, repeat blood culture NTD - BCX positive for Gram+ cocci and streptococus. Consult ID. - patient with hx of mitral valve replacement with bioprosthetic valve - Patient has been on prolonged use of prednisone, immunocompromised. 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 Marquez for Lyme's disease, nerve tests, other autoimmune disorders - ESR 56, CRP 13 - Neurology following, appreciate assistance. Workup in progress. Prednisone 20mg daily. - Continue pain management with gabapentin, morphine sulfate IV, oxycodone Paroxysmal A. fib with RVR, resolved Hx of mitral valve replacement with bioprosthetic valve - Reported to have heart rate of 200s - Patient has a permanent pacemaker and was interrogated. Interrogation was within normal - Status post Cardizem drip titrate to heart <100 - Cardiology following, appreciate their assistance. Now in NSR. No anticoagulation recommended at this time. If afib recurs, will need to begin OAC. CHF, systolic, acute exacerbation, improved Bilateral lower extremity edema, improved - Lasix 20mg po daily. Monitor electrolytes. - 2-D echo ordered showing moderate to severely reduced EF 35-40%, moderate to severe aortic valve stenosis HTN HLD - BP controlled - Continue metoprolol 100 mg twice a day, losartan 50 mg daily - Monitor BP trend Hypothyroidism - Continued home medications levothyroxine - TSH 6.330 CAROL ANN - mild - avoid nephrotoxins - Monitor closely especially while on vancomycin - Encourage by mouth intake Hypokalemia - Repletion ordered - Monitor electrolyte Rule out DVT Bilateral lower extremity edema, pain Generalized weakness, unable to ambulate - Doppler studies of bilateral lower extremity normal examination No evidence of DVT. - PT/OT eval/tx Fall precaution PT consult to treat and eval DVT prop SCDs GI prop pantoprazole Problem Qualifiers (1) CHF (congestive heart failure): Qualified Codes: I50.9 - Heart failure, unspecified Diomedes Gray MD Dec 27, 2016 10:05
--- NOTE | 2016-12-27 14:38 | HHI.IDPN ---
Subjective Subjective Remarks Patient is an 86-year-old female, but into the hospital for evaluation of bilateral lower extremity pain with swelling, generalized weakness, and was mention of a decline in mental status. Patient is not a very good historian. She denies any respiratory complaint, no chest pain or shortness of breath. There is been no nausea or vomiting, diarrhea or constipation. She denies any dysuria. From the records, looks like the patient was hospitalized in [place] and evaluated for her bilateral upper extremity pain, right worse than the left. She was diagnosed to have brachial plexitis and was treated with steroids. From the hospital in [place] she went to a rehabilitation facility, and about 7 months ago she moved to [place] and she has been staying with her daughter. According to the daughter the patient improved some with the steroids. The steroid dose has been decreasing. Patient has seen Dr Marquez, and she is actually being reevaluated for her weakness and pain. She has now been experiencing pain and weakness in both LE. She has not been able to do much as far as ambulation due to the pain. She has seen her oil lease operator recently and she had some low grade temps at that time, and was told that she has UTI. On presentation her temperature was up to 102.2. She also had A. fib on presentation, and converted to NSR. 2 blood cultures were done, and they are now reported as growing gram-positive cocci in pairs and chains. Temps now normal. Patient is getting neurological workup. She has had CT of the whole spine which showed degenerative disc disease. The UVC is elevated. Sedimentation rate is 56, C-reactive protein is 13. UA is okay. Infectious disease consultation has been requested to assist in evaluation and treatment of her positive blood cultures Notes reviewed Temps ok No pain in UE or LE No new (+) BC WBC lower No diarrhea No rash or itching Antibiotics Rocephin Lines PIV Past Medical History Hypothyroidism Hypertension Hyperlipidemia CAD A. fib Brachial plexitis Past Surgical History Permanent pacemaker Status post mitral valve replacement, with porcine valve Appendectomy Hysterectomy 2 shoulder replacement Right knee replacement Allergies: Coded Allergies: Iodinated Contrast- Oral and IV Dye (Unverified Allergy, Severe, EYES SWELLING, 12/23/16) iodine (Unverified Allergy, Severe, EYES SWELLING, 12/23/16) potassium iodide (Unverified Allergy, Severe, EYES SWELLING, 12/23/16) povidone-iodine (Unverified Allergy, Severe, EYES SWELLING, 12/23/16) sodium iodide (Unverified Allergy, Severe, EYES SWELLING, 12/23/16) sodium iodide (Unverified Allergy, Severe, EYES SWELLING, 12/23/16) Uncoded Allergies: IVP DYE (Allergy, Unknown, EYES SWELLING, 05/17/08) Objective . Vital Signs Date Time Temp Pulse Resp B/P (MAP) Pulse Ox O2 Delivery O2 Flow Rate FiO2 12/27/16 10:45 97 12/27/16 08:37 66 12/27/16 08:37 Room Air 12/27/16 08:00 98.4 71 20 127/79 (95) 100 12/27/16 06:00 98.0 67 20 145/65 (91) 96 12/27/16 00:00 97.9 90 20 173/83 (113) 96 12/27/16 00:00 Nasal Cannula 3.00 12/26/16 20:46 100 Nasal Cannula 3.00 12/26/16 20:01 72 12/26/16 20:00 97.9 77 20 159/67 (97) 97 12/26/16 20:00 Nasal Cannula 3.00 12/26/16 16:00 98.1 71 18 167/71 (103) 99 . Laboratory Tests Test 12/25/16 15:17 12/26/16 05:30 White Blood Count 14.6 TH/MM3 11.2 TH/MM3 Red Blood Count 3.52 MIL/MM3 2.94 MIL/MM3 Hemoglobin 10.0 GM/DL 8.7 GM/DL Hematocrit 31.4 % 26.1 % Mean Corpuscular Volume 89.1 FL 88.8 FL Mean Corpuscular Hemoglobin 28.3 PG 29.4 PG Mean Corpuscular Hemoglobin Concent 31.8 % 33.2 % Red Cell Distribution Width 16.5 % 16.4 % Platelet Count 191 TH/MM3 210 TH/MM3 Mean Platelet Volume 7.9 FL 7.7 FL Neutrophils (%) (Auto) 87.4 % 83.3 % Lymphocytes (%) (Auto) 8.7 % 12.8 % Monocytes (%) (Auto) 3.1 % 3.6 % Eosinophils (%) (Auto) 0.6 % 0.1 % Basophils (%) (Auto) 0.2 % 0.2 % Neutrophils # (Auto) 12.8 TH/MM3 9.3 TH/MM3 Lymphocytes # (Auto) 1.3 TH/MM3 1.4 TH/MM3 Monocytes # (Auto) 0.5 TH/MM3 0.4 TH/MM3 Eosinophils # (Auto) 0.1 TH/MM3 0.0 TH/MM3 Basophils # (Auto) 0.0 TH/MM3 0.0 TH/MM3 CBC Comment DIFF FINAL DIFF FINAL Differential Comment Laboratory Tests Test 12/25/16 15:17 12/26/16 05:30 Blood Urea Nitrogen 15 MG/DL 13 MG/DL Creatinine 0.88 MG/DL 0.79 MG/DL Random Glucose 144 MG/DL 128 MG/DL Calcium Level 8.2 MG/DL 8.6 MG/DL Sodium Level 138 MEQ/L 139 MEQ/L Potassium Level 3.5 MEQ/L 3.3 MEQ/L Chloride Level 100 MEQ/L 100 MEQ/L Carbon Dioxide Level 29.6 MEQ/L 29.7 MEQ/L Anion Gap 8 MEQ/L 9 MEQ/L Estimat Glomerular Filtration Rate 61 ML/MIN 69 ML/MIN Microbiology Date/Time Source Procedure Growth Status 12/25/16 15:17 Blood Peripheral Aerobic Blood Culture - Preliminary NO GROWTH IN 2 DAYS Resulted 12/25/16 15:17 Blood Peripheral Anaerobic Blood Culture - Final QNS - SEE AEROBE REPORT Resulted 12/24/16 16:46 Blood Peripheral Aerobic Blood Culture - Preliminary NO GROWTH IN 3 DAYS Resulted 12/24/16 16:46 Blood Peripheral Anaerobic Blood Culture - Preliminary NO GROWTH IN 3 DAYS Resulted 12/24/16 16:46 Blood Peripheral Aerobic Blood Culture - Preliminary NO GROWTH IN 3 DAYS Resulted 12/24/16 16:46 Blood Peripheral Anaerobic Blood Culture - Preliminary NO GROWTH IN 3 DAYS Resulted Imaging Lower Extremity Ultrasound 12/23/16712 Signed Impressions: Service Date/Time: Friday, December 23, 2016 08:02 - CONCLUSION: Normal examination. No evidence of DVT Aneesh Bello MD Chest X-Ray 12/23/16712 Signed Impressions: Service Date/Time: Friday, December 23, 2016 09:06 - CONCLUSION: Pacer, mild compensated cardiomegaly. Negative for pneumothorax. Homero Guerra MD FACR Thoracic Spine CT 12/23/16 0000 Signed Impressions: Service Date/Time: Friday, December 23, 2016 20:48 - CONCLUSION: Moderate degenerative changes as described above. There is no evidence of acute fracture. . Rick Figueroa MD Lumbar Spine CT 12/23/16 0000 Signed Impressions: Service Date/Time: Friday, December 23, 2016 20:48 - CONCLUSION: 1. Moderate degenerative changes as described above. There is no evidence of acute fracture. 2. Moderate spinal canal stenosis at L2-L3. Rick Figueroa MD Cervical Spine CT 12/23/16 0000 Signed Impressions: Service Date/Time: Friday, December 23, 2016 20:42 - CONCLUSION: 1. Moderate degenerative changes as described above. There is no evidence of acute fracture. Rick Figueroa MD Physical Exam GENERAL: awake and alert, not in respiratory distress. Up in chair SKIN: Warm and dry. Has improving purpuric rash in both UE and both legs, no embolic lesions seen in hands or feet HEAD: Atraumatic. Normocephalic. No temporal wasting, or tenderness. EYES: [place] conjunctiva. No petechia or hemorrhage. No scleral icterus. No injection or drainage. EARS, NOSE AND THROAT: Nose without bleeding or purulent nasal discharge. Mucous membranes pink and moist. No oral lesions noted. She wears upper dentures and partial lower NECK: Trachea midline. Supple and not tender, no meningeal signs CARDIOVASCULAR: Regular rate and rhythm. Has murmur systolic at base of the heart. No rub. Sternotomy scar C/W surgical history. Pacer in her left upper chest with no evidence of infection RESPIRATORY: Clear to auscultation. Breath sounds equal bilaterally. No rales , wheezing or rhonchi. Decreased at the bases ABDOMEN: Soft, slightly round, non-tender, nondistended. Bowel sounds present and normoactive. No guarding. No rebound. No organomegaly. EXTREMITIES: No clubbing, cyanosis. Has some pitting edema in both feet, notable for the purpuric rash in forearms and legs. No calf tenderness. Well perfused and warm. NEUROLOGICAL: Awake and alert. Cranial nerves grossly intact. Motor grossly within normal limits. PSYCHIATRIC: Normal affect, calm and cooperative. LINE: No evidence of infection Assessment & Plan Remarks IMPRESSION Strep viridans sepsis, on admission, very worrisome for endovascular infection - she is S/P MVR and has pacemaker, both done 2013 Atrial fib, now in NSR, due to fever, infection BUE and BLE pain, and weakness, etiology Confusion, due to sepsis RECOMMENDATION Continue Rocephin - anticipated end date Feb 05 (6 weeks IV Abx) PICC Arrange for home IV Abx Needs to do more ambulation - for safety discharge I will refer patient to Dr Selby for ID follow-up Discussed options with her daughter on previous conversationw about options for short suppression vs long suppression with oral Abx Daughter's main concern is have patient regain all her previous physical capabilities for discharge Explained plan to patient and family member D/W Shiela Brenner MD Dec 27, 2016 14:38
--- NOTE | 2016-12-27 14:40 | HHI.FF ---
cc: Mally Selby MD, Dr Infusion Therapy Location of Infusion Therapy: Home Health Care IV Infusion Order Patient Information Patient Weight 77.5 kg Diagnosis: Diagnosis Strep viridans bacteremia, S/P MVR and has pacemaker Coded Allergies: Iodinated Contrast- Oral and IV Dye (Unverified Allergy, Severe, EYES SWELLING, 12/23/16) iodine (Unverified Allergy, Severe, EYES SWELLING, 12/23/16) potassium iodide (Unverified Allergy, Severe, EYES SWELLING, 12/23/16) povidone-iodine (Unverified Allergy, Severe, EYES SWELLING, 12/23/16) sodium iodide (Unverified Allergy, Severe, EYES SWELLING, 12/23/16) sodium iodide (Unverified Allergy, Severe, EYES SWELLING, 12/23/16) Uncoded Allergies: IVP DYE (Allergy, Unknown, EYES SWELLING, 05/17/08) Administer Medication Ceftriaxone 2 grams IV q 24 hours Stop Treatment: Feb 05, 2017 Additional Information Venous access: PICC Line Additional Instructions [x] Peripheral flush and dressing changes per protocol [x] 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 [] May leave port accessed during therapy. [] May leave peripheral site accessed for duration of therapy. [x] If patient has SOB or respiratory distress, check oxygen saturation. If less than 90% or clinical signs of respiratory distress, administer oxygen at 2 L/min. via nasal cannula and notify physician. [x] Anaphylaxis/Reaction orders: * Stop infusion. * Keep IV line open with saline flush. * Notify physician. * Monitor vital signs every 15 minutes until symptoms resolve. * Check Oxygen saturation; Oxygen at 2 L/min. via nasal cannula if less than 90% or clinical signs of respiratory distress. * Administer diphenhydramine (Benadryl) 25 mg IV STAT, (unless patient has received as pre-med). May repeat once, if necessary. * Solu-Cortef 250 mg IVP over 30-60 seconds, use 100 mg vials for each dissolution. * Epinephrine (1mg/1 ml) 0.3 mg subcutaneously or IVP now with any signs of respiratory distress. * Check with physician for new additional pre-med orders if patient is re- challenged or re-treated. [x] May remove PICC line when treatment complete, after confirming with Physician. [x] If the patient is admitted to the hospital, the ED, or transferred via [facility] , complete transfer form including medication reconciliation order sheet. Laboratory Tests Weekly Labs: CBC w/diff, Creatinine, LFT's (Hepatic function test) (Labs every Friday - copy to me and Dr Selby) Shiela Romo MD Dec 27, 2016 14:40
[2016-12-27] MEDS ORDERED: SODIUM CHLORIDE 0.9% FLUSH 10 ML FLUSH IV FLUSH PRN (18:00)
--- NOTE | 2016-12-27 18:13 | RADRPT ---
EXAM DATE/TIME: 12/27/2016 17:16 [facility] COMPARISON: CHEST SINGLE AP, December 23, 2016, 9:06. INDICATIONS : PICC line placement. MEDICAL HISTORY : Cardiovascular disease. Hypertension SURGICAL HISTORY : Appendectomy. CABG. bilat shoulder replacement ENCOUNTER: Initial ACUITY: 1 day PAIN SCORE: 0/10 LOCATION: Right upper chest FINDINGS: The patient is status post sternotomy. There is a pacing device in place from the left subclavian [place]. There is a PICC line in place from the right arm with the tip overlying the SVC. The heart siz e is normal. The lungs are grossly clear. No pneumothorax is seen. Bilateral shoulder prostheses are present. CONCLUSION: PICC line in good position. Sravan Lockhart MD on December 27, 2016 at 18:10 Board Certified Radiologist. This report was verified electronically.
[2016-12-27] MEDS: cefTRIAXone INJ 2,000 MG in SODIUM CHLORIDE 0.9% INJ 100 ML IV SCH (18:15)
[2016-12-27 19:55] LABS: ACETYLCHOLINE REC BINDING LESS THAN 0.30 nmol/L
[2016-12-27] MEDS: AMITRIPTYLINE HCL 10 MG TAB PO SCH (21:37)
[2016-12-28] VITALS (7 sets, daily range): BP systolic 117–182; BP diastolic 57–74; PULSE 63–88; RESP 18–20; TEMP 97.4–98.2; O2SAT 93–98
[2016-12-28] MEDS: CHLORHEXIDINE GLUCONATE 2 % 1 PACK (2 CLOTHS)(taper/protocol) TOPICAL SCH (04:00)
[2016-12-28] MEDS: LEVOTHYROXINE SODIUM 50 MCG TAB PO SCH (05:44)
--- NOTE | 2016-12-28 07:49 | HHI.PR ---
Subjective Remarks Patient seen and examined this morning. Her vitals are stable and she is afebrile. Family disappointed that patient hasn't had PT. They report the patient will not walk without their assistance. They are concerned about her going home alone with home health. Otherwise patient is without complaints or concerns. Denies CP or difficulty breathing. Objective Vital Signs Date Time Temp Pulse Resp B/P (MAP) Pulse Ox O2 Delivery O2 Flow Rate FiO2 12/28/16 04:00 98.1 65 20 150/64 (92) 95 12/28/16 00:00 98.0 75 20 143/68 (93) 93 12/27/16 20:45 Room Air 12/27/16 20:32 92 12/27/16 20:16 73 12/27/16 20:00 98.0 72 18 156/59 (91) 94 12/27/16 16:00 97.8 63 18 147/62 (90) 92 12/27/16 12:00 98.3 80 20 133/61 (85) 95 12/27/16 10:45 97 12/27/16 08:37 66 12/27/16 08:37 Room Air 12/27/16 08:00 98.4 71 20 127/79 (95) 100 I/O 12/27/16 12/27/16 12/27/16 12/28/16 12/28/16 12/28/16 06:59 14:59 22:59 06:59 14:59 22:59 Intake Total 520 ml 720 ml 240 ml Output Total 2 ml Balance 518 ml 720 ml 240 ml Intake Oral 520 ml 720 ml 240 ml Output Urine Total 2 ml # Voids 4 2 # Bowel Movements 2 3 1 Result Diagram: 12/26/1630 12/26/16529 Imaging Last Impressions Chest X-Ray 12/27/16 0000 Signed Impressions: Service Date/Time: Tuesday, December 27, 2016 17:16 - CONCLUSION: PICC line in good position. Sravan Lockhart MD Lower Extremity Ultrasound 12/23/16 0713 Signed Impressions: Service Date/Time: Friday, December 23, 2016 08:02 - CONCLUSION: Normal examination. No evidence of DVT Aneesh Bello MD Thoracic Spine CT 12/23/16 0000 Signed Impressions: Service Date/Time: Friday, December 23, 2016 20:48 - CONCLUSION: Moderate degenerative changes as described above. There is no evidence of acute fracture. . Rick Figueroa MD Lumbar Spine CT 12/23/16 0000 Signed Impressions: Service Date/Time: Friday, December 23, 2016 20:48 - CONCLUSION: 1. Moderate degenerative changes as described above. There is no evidence of acute fracture. 2. Moderate spinal canal stenosis at L2-L3. Rick Figueroa MD Cervical Spine CT 12/23/16 0000 Signed Impressions: Service Date/Time: Friday, December 23, 2016 20:42 - CONCLUSION: 1. Moderate degenerative changes as described above. There is no evidence of acute fracture. Rick Figueroa MD Other Results GENERAL: sitting in chair, well appearing SKIN: Warm and dry. Multiple abrasions on UE. IV left forearm and right upper extremity. . HEAD: Normocephalic. EYES: No scleral icterus. No injection or drainage. NECK: Supple, trachea midline. No JVD or lymphadenopathy. CARDIOVASCULAR: Regular rate and rhythm without murmurs, gallops, or rubs. RESPIRATORY: Breath sounds equal bilaterally. No accessory muscle use. GASTROINTESTINAL: Abdomen soft, non-tender, nondistended. MUSCULOSKELETAL: No cyanosis, or edema. No calf tenderness. A/P Problem List: (1) Sepsis ICD Code: A41.9 - Sepsis, unspecified organism (2) UTI (urinary tract infection) ICD Code: N39.0 - Urinary tract infection, site not specified (3) CHF (congestive heart failure) ICD Code: I50.9 - Heart failure, unspecified Status: Acute (4) Paroxysmal atrial fibrillation ICD Code: I48.0 - Paroxysmal atrial fibrillation (5) Aortic valve stenosis ICD Code: I35.0 - Nonrheumatic aortic (valve) stenosis (6) History of mitral valve replacement with bioprosthetic valve ICD Code: Z95.3 - Presence of xenogenic heart valve Assessment and Plan 86-year-old female patient with a medical history significant for hypothyroidism , hypertension, CHF presented to the ER for lower extremity pain and swelling in addition to change in mental status. Being treated for urosepsis. Urosepsis: Blood cultures grew Strep viridans on admission 12/23. Repeat blood cultures are negative. Was on vancomycin and Zosyn 12/23- 12/26. Currently on Rocephin with anticipated end date of February 05. ID has arranged for outpatient/home IV antibiotics. 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 Marquez for Lyme's disease, nerve tests, other autoimmune disorders - ESR 56, CRP 13 - Neurology following, appreciate assistance. Workup in progress. Prednisone 20mg daily. - Continue pain management with gabapentin, morphine sulfate IV, oxycodone Paroxysmal A. fib with RVR during hospital admission: was previously on Cardizem drip. Currently normal sinus rhythm. No anticoagulation was recommended at this time, but if she goes back into A. fib with need to consider oral anticoagulation. - Hx of mitral valve replacement with bioprosthetic valve - Cardiology following CHF, systolic, acute exacerbation - 2-D echo showed EF 35-40%, moderate to severe aortic valve stenosis - Currently on Lasix 20 mg daily Hypertension - Currently normotensive, on metoprolol 100 mg twice a day and losartan 50 mg daily Hypothyroidism - Continue home levothyroxine CAROL ANN - Renally dose all meds, avoid nephrotoxic agents Bilateral lower extremity pain - Ultrasound ruled out DVT - Likely related to the patient's polymyositis - PTOT eval DVT prophylaxis: Bilateral SCDs GI prophylaxis: Pantoprazole Discharge Planning PT recommends home with home health Family with many concerns regarding patients safety home alone. I believe the patient would benefit from SNF, they like the idea of [facility]. I have placed a consult to case management. Problem Qualifiers (1) CHF (congestive heart failure): Qualified Codes: I50.9 - Heart failure, unspecified Irena Thomason MD Dec 28, 2016 07:49
[2016-12-28] MEDS: PANTOPRAZOLE SOD 40 MG DELAYED RELEASE TAB PO SCH ×2 (08:40→20:27)
[2016-12-28] MEDS: LACTOBACILLUS ACIDOPHILUS TAB PO SCH ×2 (08:40→20:27)
[2016-12-28] MEDS: FUROSEMIDE 20 MG TAB PO SCH (08:40)
[2016-12-28] MEDS: predniSONE 10 MG TAB PO SCH (08:40)
[2016-12-28] MEDS: ASPIRIN 325 MG TAB PO SCH (08:40)
[2016-12-28] MEDS: GABAPENTIN 300 MG CAP PO SCH ×3 (08:40→17:20)
[2016-12-28] MEDS: METOPROLOL TARTRATE 100 MG TAB PO SCH ×2 (08:40→20:27)
[2016-12-28] MEDS: LOSARTAN 50 MG TAB PO SCH (08:41)
[2016-12-28] MEDS: SODIUM CHLORIDE 0.9% FLUSH 10 ML FLUSH IV FLUSH SCH ×3 (08:41→20:27)
[2016-12-28] MEDS: cefTRIAXone INJ 2,000 MG in SODIUM CHLORIDE 0.9% INJ 100 ML IV SCH (16:10)
[2016-12-28] MEDS: AMITRIPTYLINE HCL 10 MG TAB PO SCH (20:26)
[2016-12-29] VITALS (7 sets, daily range): BP systolic 125–189; BP diastolic 66–82; PULSE 62–74; RESP 16–20; TEMP 97.6–98.5; O2SAT 94–97
[2016-12-29] MEDS: LEVOTHYROXINE SODIUM 50 MCG TAB PO SCH (05:03)
--- NOTE | 2016-12-29 07:05 | HHI.PR ---
Subjective Remarks Patient seen and examined this morning. Her vitals are stable and she is afebrile. She feels well and is anxious to go home. Daughters are at bedside and have decided they want to go home instead of SNF, that the patient would be more comfortable. No complaints or concerns today. Objective Vital Signs Date Time Temp Pulse Resp B/P (MAP) Pulse Ox O2 Delivery O2 Flow Rate FiO2 12/29/16 05:00 98.1 62 18 151/75 (100) 95 12/29/16 00:00 98.5 62 16 189/81 (117) 95 168/82 (110) 12/28/16 20:11 75 12/28/16 20:00 97.4 72 18 117/57 (77) 98 12/28/16 19:30 Room Air 12/28/16 16:00 98.2 69 18 130/71 (90) 96 12/28/16 12:00 98.0 88 20 171/72 (105) 94 12/28/16 08:00 98.1 66 18 182/74 (110) 96 12/28/16 08:00 Room Air 12/28/16 08:00 63 I/O 12/28/16 12/28/16 12/28/16 12/29/16 12/29/16 12/29/16 07:00 15:00 23:00 07:00 15:00 23:00 Intake Total 240 ml 720 ml Balance 240 ml 720 ml Intake Oral 240 ml 720 ml # Voids 2 4 2 # Bowel Movements 1 3 Result Diagram: 12/26/16 0530 12/26/16 0530 Imaging Last Impressions Chest X-Ray 12/27/16 0000 Signed Impressions: Service Date/Time: Tuesday, December 27, 2016 17:16 - CONCLUSION: PICC line in good position. Sravan Lockhart MD Lower Extremity Ultrasound 12/23/16 0713 Signed Impressions: Service Date/Time: Friday, December 23, 2016 08:02 - CONCLUSION: Normal examination. No evidence of DVT Aneesh Bello MD Thoracic Spine CT 12/23/16 0000 Signed Impressions: Service Date/Time: Friday, December 23, 2016 20:48 - CONCLUSION: Moderate degenerative changes as described above. There is no evidence of acute fracture. . Rick Figueroa MD Lumbar Spine CT 12/23/16 0000 Signed Impressions: Service Date/Time: Friday, December 23, 2016 20:48 - CONCLUSION: 1. Moderate degenerative changes as described above. There is no evidence of acute fracture. 2. Moderate spinal canal stenosis at L2-L3. Rick Figueroa MD Cervical Spine CT 12/23/16 0000 Signed Impressions: Service Date/Time: Friday, December 23, 2016 20:42 - CONCLUSION: 1. Moderate degenerative changes as described above. There is no evidence of acute fracture. Rick Figueroa MD Objective Remarks GENERAL: laying in bed, well appearing SKIN: Warm and dry. Multiple abrasions on UE. IV left forearm and right upper extremity. . HEAD: Normocephalic. EYES: No scleral icterus. No injection or drainage. NECK: Supple, trachea midline. No JVD or lymphadenopathy. CARDIOVASCULAR: Regular rate and rhythm, +FREDRICK RESPIRATORY: Breath sounds equal bilaterally. No accessory muscle use. GASTROINTESTINAL: Abdomen soft, non-tender, nondistended. MUSCULOSKELETAL: No cyanosis, or edema. No calf tenderness. A/P Problem List: (1) Sepsis ICD Code: A41.9 - Sepsis, unspecified organism (2) UTI (urinary tract infection) ICD Code: N39.0 - Urinary tract infection, site not specified (3) CHF (congestive heart failure) ICD Code: I50.9 - Heart failure, unspecified Status: Acute (4) Paroxysmal atrial fibrillation ICD Code: I48.0 - Paroxysmal atrial fibrillation (5) Aortic valve stenosis ICD Code: I35.0 - Nonrheumatic aortic (valve) stenosis (6) History of mitral valve replacement with bioprosthetic valve ICD Code: Z95.3 - Presence of xenogenic heart valve Assessment and Plan 86-year-old female patient with a medical history significant for hypothyroidism , hypertension, CHF presented to the ER for lower extremity pain and swelling in addition to change in mental status. Being treated for urosepsis. Urosepsis: Blood cultures grew Strep viridans on admission 12/23. Repeat blood cultures are negative. Was on vancomycin and Zosyn 12/23- 12/26. Currently on Rocephin with anticipated end date of February 05. ID has arranged for outpatient/home IV antibiotics. 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 Marquez for Lyme's disease, nerve tests, other autoimmune disorders - ESR 56, CRP 13 - Neurology following, appreciate assistance. Workup in progress. Prednisone 20mg daily. (will follow up with PCP as far as taper, patient has been on for 3 months) - Continue pain management with gabapentin, morphine sulfate IV, oxycodone Paroxysmal A. fib with RVR during hospital admission: was previously on Cardizem drip. Currently normal sinus rhythm. No anticoagulation was recommended at this time, but if she goes back into A. fib with need to consider oral anticoagulation. - Hx of mitral valve replacement with bioprosthetic valve - Cardiology following CHF, systolic, acute exacerbation - 2-D echo showed EF 35-40%, moderate to severe aortic valve stenosis - Currently on Lasix 20 mg daily Hypertension - Currently normotensive, on metoprolol 100 mg twice a day and losartan 50 mg daily Hypothyroidism - Continue home levothyroxine CAROL ANN - Renally dose all meds, avoid nephrotoxic agents Bilateral lower extremity pain--RESOLVED - Ultrasound ruled out DVT DVT prophylaxis: Bilateral SCDs GI prophylaxis: Pantoprazole Discharge Planning D/C home with home health ID has arranged for abx. Problem Qualifiers (1) UTI (urinary tract infection): Qualified Codes: N30.00 - Acute cystitis without hematuria (2) CHF (congestive heart failure): Qualified Codes: I50.9 - Heart failure, unspecified Irena Thomason MD Dec 29, 2016 07:05
[2016-12-29] MEDS: SODIUM CHLORIDE 0.9% FLUSH 10 ML FLUSH IV FLUSH SCH ×3 (08:01→20:25)
[2016-12-29] MEDS: FUROSEMIDE 20 MG TAB PO SCH (08:02)
[2016-12-29] MEDS: PANTOPRAZOLE SOD 40 MG DELAYED RELEASE TAB PO SCH ×2 (08:02→20:24)
[2016-12-29] MEDS: GABAPENTIN 300 MG CAP PO SCH ×3 (08:02→17:27)
[2016-12-29] MEDS: ASPIRIN 325 MG TAB PO SCH (08:02)
[2016-12-29] MEDS: LOSARTAN 50 MG TAB PO SCH (08:03)
[2016-12-29] MEDS: predniSONE 10 MG TAB PO SCH (08:03)
[2016-12-29] MEDS: LACTOBACILLUS ACIDOPHILUS TAB PO SCH ×2 (08:03→20:24)
[2016-12-29] MEDS: METOPROLOL TARTRATE 100 MG TAB PO SCH ×2 (08:03→20:24)
--- NOTE | 2016-12-29 11:33 | HHI.FF ---
Face to Face Verification Diagnosis: (1) UTI (urinary tract infection) (2) Bacteremia due to Gram-positive bacteria (3) CHF (congestive heart failure) Physical Therapy Order: Evaluate and Treat, Improve ambulation, Strength and gait training Home Health Nursing Order: Medical education Signs/symptoms of disease process Nursing assessment with vital signs IV medication administration I have seen patient Marika Stovall on 12/29/16. My clinical findings support the need for the requested home health care services because: Ltd mobility - disease progression Deconditioned w/ increased weakness Injectable med education/admin I certify that my clinical findings support that this patient is homebound because: Unsteady gait/balance Irena Thomason MD Dec 29, 2016 11:33
[2016-12-29] MEDS ORDERED: COMMODE 3-IN-11 MIS (11:35)
--- NOTE | 2016-12-29 12:57 | HHI.DS ---
Irena Thomason MD 12/29/16 1257: Discharge Summary Admission Date Dec 23, 2016 at 12:11 Discharge Date: Dec 29, 2016 Admitting Diagnosis fever. Tachycardia. CHF. PolyMyositis [facility] Neurology, ID, cardiology Brief History 86-year-old female presented to the ED with chief complaint of bilateral lower extremity pain and change in mental status. 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 Heart this workup was started in [place] and then she's been seeing Dr. Marquez locally. She has been on steroids for this. Upon her presentation to the ER she was found to be febrile, had an elevated white count, elevated CRP, and was tachycardic. Her urine was positive for urinary tract infection. The patient was diagnosed with sepsis. Her blood cultures grew strep radians. She was placed on vancomycin and Zosyn. She was seen by infectious disease who followed her cultures. She was then changed to Rocephin and will require antibiotics until February 05. During her hospital is a patient of patient went into paroxysmal A. fib with RVR. She was placed on a Cardizem drip and then was back in sinus rhythm. She did not require any anticoagulation. Cardiology saw evaluated her. Echo showed moderate to severe aortic stenosis. It was decided that the patient will not be on anticoagulation at this time, but if she went back into A. fib she will require. The patient clinically improved. It was decided that she will go home with home health and this is what her family agreed to. Outpatient antibiotics was arranged for the patient. CBC/BMP: 12/26/16 0530 12/26/16 0530 Imaging Last Impressions Chest X-Ray 12/27/16 0000 Signed Impressions: Service Date/Time: Tuesday, December 27, 2016 17:16 - CONCLUSION: PICC line in good position. Sravan Lockhart MD Lower Extremity Ultrasound 12/23/16 0713 Signed Impressions: Service Date/Time: Friday, December 23, 2016 08:02 - CONCLUSION: Normal examination. No evidence of DVT Aneesh Bello MD Thoracic Spine CT 12/23/16 0000 Signed Impressions: Service Date/Time: Friday, December 23, 2016 20:48 - CONCLUSION: Moderate degenerative changes as described above. There is no evidence of acute fracture. . Rick Figueroa MD Lumbar Spine CT 12/23/16 0000 Signed Impressions: Service Date/Time: Friday, December 23, 2016 20:48 - CONCLUSION: 1. Moderate degenerative changes as described above. There is no evidence of acute fracture. 2. Moderate spinal canal stenosis at L2-L3. Rick Figueroa MD Cervical Spine CT 12/23/16 0000 Signed Impressions: Service Date/Time: Friday, December 23, 2016 20:42 - CONCLUSION: 1. Moderate degenerative changes as described above. There is no evidence of acute fracture. Rick Figueroa MD PE at Discharge GENERAL: laying in bed, well appearing SKIN: Warm and dry. Multiple abrasions on UE. IV left forearm and right upper extremity. . HEAD: Normocephalic. EYES: No scleral icterus. No injection or drainage. NECK: Supple, trachea midline. No JVD or lymphadenopathy. CARDIOVASCULAR: Regular rate and rhythm, +FREDRICK RESPIRATORY: Breath sounds equal bilaterally. No accessory muscle use. GASTROINTESTINAL: Abdomen soft, non-tender, nondistended. MUSCULOSKELETAL: No cyanosis, or edema. No calf tenderness. Hospital Course 86-year-old female patient with a medical history significant for hypothyroidism , hypertension, CHF presented to the ER for lower extremity pain and swelling in addition to change in mental status. Being treated for urosepsis. Urosepsis: Blood cultures grew Strep viridans on admission 12/23. Repeat blood cultures are negative. Was on vancomycin and Zosyn 12/23- 12/26. Currently on Rocephin with anticipated end date of February 05. ID has arranged for outpatient/home IV antibiotics. 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 Marquez for Lyme's disease, nerve tests, other autoimmune disorders - ESR 56, CRP 13 - Neurology following, appreciate assistance. Workup in progress. Prednisone 20mg daily. (will follow up with PCP as far as taper, patient has been on for 3 months) - Continue pain management with gabapentin, morphine sulfate IV, oxycodone Paroxysmal A. fib with RVR during hospital admission: was previously on Cardizem drip. Currently normal sinus rhythm. No anticoagulation was recommended at this time, but if she goes back into A. fib with need to consider oral anticoagulation. - Hx of mitral valve replacement with bioprosthetic valve - Cardiology following CHF, systolic, acute exacerbation - 2-D echo showed EF 35-40%, moderate to severe aortic valve stenosis - Currently on Lasix 20 mg daily Hypertension - Currently normotensive, on metoprolol 100 mg twice a day and losartan 50 mg daily Hypothyroidism - Continue home levothyroxine CAROL ANN - Renally dose all meds, avoid nephrotoxic agents Bilateral lower extremity pain--RESOLVED - Ultrasound ruled out DVT Pt Condition on Discharge: Stable Discharge Disposition: Disch w/ Home Health Serv Discharge Instructions DIET: Follow Instructions for: Heart Healthy Diet Activities you can perform: See Additionl Instruction Other Activity Instructions: Per PT reccs Follow up Referrals: Infectious Disease - 1 Week PCP Follow-up - 1 Week New Medications: Commode 3-in-1 (Commode 3-in-1) 1 Mis Mis EA .ROUTE DIRECTED, #1 0 Refills Continued Medications: Amitriptyline (Amitriptyline) 10 Mg Tab 10 MG PO HS, TAB Aspirin (Aspirin) 325 Mg Tab 325 MG PO DAILY, #30 TAB 0 Refills Cholecalciferol (Vitamin D-1000) 1,000 Unit Tab 1000 UNITS PO DAILY for Nutritional Supplement, #1 BOTTLE 0 Refills Fish Oil-Cholecalciferol (Fish Oil + D3) 1,200-1,000 Mg-Unit Cap 1 CAP PO DAILY for Nutritional Supplement, #30 CAP 0 Refills Furosemide (Furosemide) 20 Mg Tab 20 MG PO DAILY, #30 TAB 0 Refills Gabapentin (Gabapentin) 300 Mg Cap 300 MG PO TID, #90 CAP 0 Refills Levothyroxine (Levothyroxine) 50 Mcg Tab 50 MCG PO DAILY for Thyroid, #30 TAB 0 Refills Lidocaine Patch 12 HR (Lidocaine Patch 12 HR) 5 % Patch 1 PATCH TOPICAL DAILY for Pain Management, #1 BOX 0 Refills Remove patch after 12 hours Losartan (Losartan) 50 Mg Tab 50 MG PO DAILY for Blood Pressure Management, #30 TAB 0 Refills Metoprolol Tartrate (Metoprolol Tartrate) 100 Mg Tab 100 MG PO BID, #60 TAB 0 Refills Oxycodone (Oxycodone) 5 Mg Cap 5 MG PO Q6H PRN for PAIN, CAP 0 Refills Pantoprazole (Protonix) 40 Mg Tab 40 MG PO BID for Reflux, #30 TAB 0 Refills Prednisone (Prednisone) 10 Mg Tab 10 MG PO DAILY, TAB 0 Refills Rosuvastatin (Rosuvastatin) 10 Mg Tab 10 MG PO HS for Cholesterol Management, TAB 0 Refills Tramadol (Tramadol) 50 Mg Tab 50 MG PO Q12HR PRN for PAIN, TAB 0 Refills Deana Snyder MD 12/30/16921: Discharge Summary CBC/BMP: 12/26/16 0530 12/26/16 0530 Discharge Instructions Follow up Referrals: Infectious Disease - 1 Week PCP Follow-up - 1 Week New Medications: Commode 3-in-1 (Commode 3-in-1) 1 Mis Mis EA .ROUTE DIRECTED, #1 0 Refills Continued Medications: Amitriptyline (Amitriptyline) 10 Mg Tab 10 MG PO HS, TAB Aspirin (Aspirin) 325 Mg Tab 325 MG PO DAILY, #30 TAB 0 Refills Cholecalciferol (Vitamin D-1000) 1,000 Unit Tab 1000 UNITS PO DAILY for Nutritional Supplement, #1 BOTTLE 0 Refills Fish Oil-Cholecalciferol (Fish Oil + D3) 1,200-1,000 Mg-Unit Cap 1 CAP PO DAILY for Nutritional Supplement, #30 CAP 0 Refills Furosemide (Furosemide) 20 Mg Tab 20 MG PO DAILY, #30 TAB 0 Refills Gabapentin (Gabapentin) 300 Mg Cap 300 MG PO TID, #90 CAP 0 Refills Levothyroxine (Levothyroxine) 50 Mcg Tab 50 MCG PO DAILY for Thyroid, #30 TAB 0 Refills Lidocaine Patch 12 HR (Lidocaine Patch 12 HR) 5 % Patch 1 PATCH TOPICAL DAILY for Pain Management, #1 BOX 0 Refills Remove patch after 12 hours Losartan (Losartan) 50 Mg Tab 50 MG PO DAILY for Blood Pressure Management, #30 TAB 0 Refills Metoprolol Tartrate (Metoprolol Tartrate) 100 Mg Tab 100 MG PO BID, #60 TAB 0 Refills Oxycodone (Oxycodone) 5 Mg Cap 5 MG PO Q6H PRN for PAIN, CAP 0 Refills Pantoprazole (Protonix) 40 Mg Tab 40 MG PO BID for Reflux, #30 TAB 0 Refills Prednisone (Prednisone) 10 Mg Tab 10 MG PO DAILY, TAB 0 Refills Rosuvastatin (Rosuvastatin) 10 Mg Tab 10 MG PO HS for Cholesterol Management, TAB 0 Refills Tramadol (Tramadol) 50 Mg Tab 50 MG PO Q12HR PRN for PAIN, TAB 0 Refills Irena Thomason MD Dec 29, 2016 12:57 Deana Snyder MD Dec 30, 2016 09:22
[2016-12-29] MEDS: cefTRIAXone INJ 2,000 MG in SODIUM CHLORIDE 0.9% INJ 100 ML IV SCH (15:43)
[2016-12-29] MEDS: AMITRIPTYLINE HCL 10 MG TAB PO SCH (20:25)
[2016-12-30] VITALS: BP 132/60; PULSE 66; RESP 20; TEMP 97.4; O2SAT 93
[2016-12-30 04:00] VITALS: BP 150/68; PULSE 62; RESP 20; TEMP 98; O2SAT 94
[2016-12-30] MEDS: LEVOTHYROXINE SODIUM 50 MCG TAB PO SCH (05:26)
[2016-12-30] MEDS ORDERED: CEFT2INJ2 IV (06:34)
[2016-12-30 08:00] VITALS: BP 183/79; PULSE 62; PULSE 63; RESP 18; TEMP 98.3; O2SAT 94
[2016-12-30] MEDS ORDERED: COMMODE 3-IN-11 MIS (08:25)
[2016-12-30] MEDS: LACTOBACILLUS ACIDOPHILUS TAB PO SCH (08:27)
[2016-12-30] MEDS: METOPROLOL TARTRATE 100 MG TAB PO SCH (08:27)
[2016-12-30] MEDS: FUROSEMIDE 20 MG TAB PO SCH (08:28)
[2016-12-30] MEDS: predniSONE 10 MG TAB PO SCH (08:28)
[2016-12-30] MEDS: PANTOPRAZOLE SOD 40 MG DELAYED RELEASE TAB PO SCH (08:28)
[2016-12-30] MEDS: ASPIRIN 325 MG TAB PO SCH (08:28)
[2016-12-30] MEDS: LOSARTAN 50 MG TAB PO SCH (08:28)
[2016-12-30] MEDS: GABAPENTIN 300 MG CAP PO SCH ×2 (08:28→12:18)
[2016-12-30] MEDS: SODIUM CHLORIDE 0.9% FLUSH 10 ML FLUSH IV FLUSH SCH ×2 (08:29→08:31)
[2016-12-30] MEDS ORDERED: FURO20TA PO (08:30)
[2016-12-30] MEDS ORDERED: METO100T PO (08:30)
[2016-12-30] MEDS ORDERED: LEVO50TA4 PO (08:30)
[2016-12-30] MEDS ORDERED: ROSU1TAB6 PO (08:30)
[2016-12-30] MEDS ORDERED: ASPI325T PO (08:30)
[2016-12-30] MEDS ORDERED: LOSA50TA PO (08:30)
--- NOTE | 2016-12-30 09:11 | HHI.DS ---
Discharge Summary Admission Date Dec 23, 2016 at 12:11 Discharge Date: Dec 30, 2016 Admitting Diagnosis fever. Tachycardia. CHF. PolyMyositis (1) Sepsis ICD Code: A41.9 - Sepsis, unspecified organism (2) UTI (urinary tract infection) ICD Code: N39.0 - Urinary tract infection, site not specified (3) CHF (congestive heart failure) ICD Code: I50.9 - Heart failure, unspecified Status: Acute (4) Paroxysmal atrial fibrillation ICD Code: I48.0 - Paroxysmal atrial fibrillation (5) Bacteremia due to Gram-positive bacteria ICD Code: R78.81 - Bacteremia Procedures None Brief History - From Admission HPI from the admitting physician Patient is an 86-year-old female with primary medical history of hypothyroidism , HTN, CHF who came in due to hospital brought in by daughter secondary to complaints of bilateral lower extremity pain, swelling, decline in mental status. Patient is a poor historian. Daughter at the bedside providing much of the history. Patient was diagnosed in September, in [place] for brachial plexitis were in she was placed on prednisone. She started on prednisone 40 mg and now is tapered to 10 mg daily. She was last seen by Dr. 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 She was worked up for Lyme's disease and nerve test. Her gabapentin was decreased in dose secondary to drowsiness. However her daughter noted that she has increasing bilateral lower extremity swelling and pain also she noted increase restlessness of her extremities that she brought her to the hospital. She is usually very mobile unable to walk using her walker however yesterday and today patient is unable to stand up and walk. Patient came to the ED febrile at 102.2, HR 117, white count 16.3, CRP 13.0, hyponatremic 133. Awake and alert able to follow commands. Denies SOB/ dyspnea. Denies chest pain, palpitations. Denies fevers, chills, n/v/d. Denies dysuria. Daughter reports foul odor urine. CBC/BMP: 12/26/16 0530 12/26/16 0530 Imaging Last Impressions Chest X-Ray 12/27/16 0000 Signed Impressions: Service Date/Time: Tuesday, December 27, 2016 17:16 - CONCLUSION: PICC line in good position. Sravan Lockhart MD Lower Extremity Ultrasound 12/23/16 0713 Signed Impressions: Service Date/Time: Friday, December 23, 2016 08:02 - CONCLUSION: Normal examination. No evidence of DVT Aneesh Bello MD Thoracic Spine CT 12/23/16 0000 Signed Impressions: Service Date/Time: Friday, December 23, 2016 20:48 - CONCLUSION: Moderate degenerative changes as described above. There is no evidence of acute fracture. . Rick Figueroa MD Lumbar Spine CT 12/23/16 0000 Signed Impressions: Service Date/Time: Friday, December 23, 2016 20:48 - CONCLUSION: 1. Moderate degenerative changes as described above. There is no evidence of acute fracture. 2. Moderate spinal canal stenosis at L2-L3. Rick Figueroa MD Cervical Spine CT 12/23/16 0000 Signed Impressions: Service Date/Time: Friday, December 23, 2016 20:42 - CONCLUSION: 1. Moderate degenerative changes as described above. There is no evidence of acute fracture. Rick Figueroa MD PE at Discharge GENERAL: NAD SKIN: Warm and dry. Multiple ecchymoses to upper extremities HEAD: Normocephalic. EYES: No scleral icterus. No injection or drainage. NECK: Supple, trachea midline. No JVD or lymphadenopathy. CARDIOVASCULAR: Regular rate and rhythm with III/ RESPIRATORY: Breath sounds equal bilaterally. No accessory muscle use. GASTROINTESTINAL: Abdomen soft, non-tender, nondistended. MUSCULOSKELETAL: No cyanosis, or edema. BACK: Nontender without obvious deformity. No CVA tenderness. Pt update on day of discharge Patient reports she is feeling great. She is eager to go home. Extensive discussion with her daughter regarding discharge planning and appropriate follow -up. Hospital Course 86-year-old female patient with a medical history significant for hypothyroidism , hypertension, CHF presented to the ER for lower extremity pain and swelling in addition to change in mental status. Patient found to have urosepsis. Evaluation and treatment course detailed below: Urosepsis: Blood cultures grew Strep viridans on admission 12/23. Repeat blood cultures are negative. Was on vancomycin and Zosyn 12/23- 12/26. Currently on Rocephin with anticipated end date of February 05. ID has arranged for outpatient/home IV antibiotics. 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 Marquez for Lyme's disease, nerve tests, other autoimmune disorders - ESR 56, CRP 13 - Neurology following, appreciate assistance. Per the last note, myalgia likely secondary to infectious process. - Continue to wean off steroids. Taper ordered on discharge. Paroxysmal A. fib with RVR during hospital admission: was previously on Cardizem drip. Currently normal sinus rhythm. No anticoagulation was recommended at this time, but if she goes back into A. fib with need to consider oral anticoagulation. - Hx of mitral valve replacement with bioprosthetic valve - Cardiology followed the patient. Advised outpatient follow. Continue metoprolol. CHF, systolic, acute exacerbation - 2-D echo showed EF 35-40%, moderate to severe aortic valve stenosis - Currently on Lasix 20 mg daily. Potassium replacement. Chronic hypokalemia: Diuretics likely contributing. Continue replacement. Follow up outpatient. Hypertension - Currently normotensive, on metoprolol 100 mg twice a day and losartan 50 mg daily Hypothyroidism - Continue home levothyroxine CAROL ANN - Resolved. Renally dose all meds, avoid nephrotoxic agents Bilateral lower extremity pain--RESOLVED - Ultrasound ruled out DVT Pt Condition on Discharge: Stable Discharge Disposition: Disch w/ Home Health Serv Discharge Time: > 30 minutes Discharge Instructions DIET: Follow Instructions for: Heart Healthy Diet Activities you can perform: See Additionl Instruction Other Activity Instructions: Per PT reccs Follow up Referrals: Infectious Disease - 1 Week PCP Follow-up - 1 Week New Medications: Commode 3-in-1 (Commode 3-in-1) 1 Mis Mis EA .ROUTE DIRECTED, #1 0 Refills Commode 3-in-1 (Commode 3-in-1) 1 Mis Mis EA .ROUTE DIRECTED, #1 0 Refills Potassium Chloride ER (Potassium Chloride ER) 10 Meq Cap 20 MEQ PO DAILY for Electrolyte Replacement, #60 CAP 0 Refills Prednisone (Prednisone) 5 Mg Tab 5 MG PO DIRECTED, #15 TAB 0 Refills Take 10 mg for 5 days, then 5 mg for 5 days Continued Medications: Amitriptyline (Amitriptyline) 10 Mg Tab 10 MG PO HS, TAB Aspirin (Aspirin) 325 Mg Tab 325 MG PO DAILY for Blood Clot Prevention, #30 TAB 0 Refills (This prescription has been renewed) Ceftriaxone Inj (Ceftriaxone Inj) 2 Gm/50 Ml Bagp 2 GM IV Q24H for Infection, BAG 0 Refills Cholecalciferol (Vitamin D-1000) 1,000 Unit Tab 1000 UNITS PO DAILY for Nutritional Supplement, #1 BOTTLE 0 Refills Fish Oil-Cholecalciferol (Fish Oil + D3) 1,200-1,000 Mg-Unit Cap 1 CAP PO DAILY for Nutritional Supplement, #30 CAP 0 Refills Furosemide (Furosemide) 20 Mg Tab 20 MG PO DAILY for Blood Pressure Management for 30 Days, #30 TAB 0 Refills ( This prescription has been renewed) Levothyroxine (Levothyroxine) 50 Mcg Tab 50 MCG PO DAILY for Thyroid for 30 Days, #30 TAB 0 Refills (This prescription has been renewed) Lidocaine Patch 12 HR (Lidocaine Patch 12 HR) 5 % Patch 1 PATCH TOPICAL DAILY for Pain Management, #1 BOX 0 Refills Remove patch after 12 hours Losartan (Losartan) 50 Mg Tab 50 MG PO DAILY for Blood Pressure Management for 30 Days, #30 TAB 0 Refills ( This prescription has been renewed) Metoprolol Tartrate (Metoprolol Tartrate) 100 Mg Tab 100 MG PO BID for Blood Pressure Management for 30 Days, #60 TAB 0 Refills ( This prescription has been renewed) Oxycodone (Oxycodone) 5 Mg Cap 5 MG PO Q6H PRN for PAIN, CAP 0 Refills Pantoprazole (Protonix) 40 Mg Tab 40 MG PO BID for Reflux, #30 TAB 0 Refills Rosuvastatin (Rosuvastatin) 10 Mg Tab 10 MG PO HS for Cholesterol Management for 30 Days, #30 TAB 0 Refills (This prescription has been renewed) Tramadol (Tramadol) 50 Mg Tab 50 MG PO Q12HR PRN for PAIN, TAB 0 Refills Discontinued Medications: Gabapentin (Gabapentin) 300 Mg Cap 300 MG PO TID, #90 CAP 0 Refills Prednisone (Prednisone) 10 Mg Tab 10 MG PO DAILY, TAB 0 Refills Deana Snyder MD Dec 30, 2016 09:11
[2016-12-30] MEDS ORDERED: PRED5TAB PO (09:29)
[2016-12-30] MEDS ORDERED: POTA10CA PO ×2 (09:36→11:51)
[2016-12-30 12:00] VITALS: BP 150/64; PULSE 60; RESP 18; TEMP 97.5; O2SAT 97
[2016-12-30] MEDS ORDERED: POTASSIUM CHLORIDE 20 MEQ CONTROLLED RELEASE TAB PO ONE (12:00)
--- NOTE | 2016-12-30 12:13 | HHI.IDPN ---
Subjective Subjective Remarks Patient is an 86-year-old female, but into the hospital for evaluation of bilateral lower extremity pain with swelling, generalized weakness, and was mention of a decline in mental status. Patient is not a very good historian. She denies any respiratory complaint, no chest pain or shortness of breath. There is been no nausea or vomiting, diarrhea or constipation. She denies any dysuria. From the records, looks like the patient was hospitalized in [place] and evaluated for her bilateral upper extremity pain, right worse than the left. She was diagnosed to have brachial plexitis and was treated with steroids. From the hospital in [place] she went to a rehabilitation facility, and about 7 months ago she moved to [place] and she has been staying with her daughter. According to the daughter the patient improved some with the steroids. The steroid dose has been decreasing. Patient has seen Dr Marquez, and she is actually being reevaluated for her weakness and pain. She has now been experiencing pain and weakness in both LE. She has not been able to do much as far as ambulation due to the pain. She has seen her mechanical spreader operator recently and she had some low grade temps at that time, and was told that she has UTI. On presentation her temperature was up to 102.2. She also had A. fib on presentation, and converted to NSR. 2 blood cultures were done, and they are now reported as growing gram-positive cocci in pairs and chains. Temps now normal. Patient is getting neurological workup. She has had CT of the whole spine which showed degenerative disc disease. The UVC is elevated. Sedimentation rate is 56, C-reactive protein is 13. UA is okay. Infectious disease consultation has been requested to assist in evaluation and treatment of her positive blood cultures Notes reviewed Temps ok No pain Ready for D/C Antibiotics Rocephin Lines PIV Past Medical History Hypothyroidism Hypertension Hyperlipidemia CAD A. fib Brachial plexitis Past Surgical History Permanent pacemaker Status post mitral valve replacement, with porcine valve Appendectomy Hysterectomy 2 shoulder replacement Right knee replacement Allergies: Coded Allergies: Iodinated Contrast- Oral and IV Dye (Unverified Allergy, Severe, EYES SWELLING, 12/23/16) iodine (Unverified Allergy, Severe, EYES SWELLING, 12/23/16) potassium iodide (Unverified Allergy, Severe, EYES SWELLING, 12/23/16) povidone-iodine (Unverified Allergy, Severe, EYES SWELLING, 12/23/16) sodium iodide (Unverified Allergy, Severe, EYES SWELLING, 12/23/16) sodium iodide (Unverified Allergy, Severe, EYES SWELLING, 12/23/16) Uncoded Allergies: IVP DYE (Allergy, Unknown, EYES SWELLING, 05/17/08) Objective . Vital Signs Date Time Temp Pulse Resp B/P (MAP) Pulse Ox O2 Delivery O2 Flow Rate FiO2 12/30/16 08:00 62 12/30/16 08:00 98.3 63 18 183/79 (113) 94 12/30/16 07:15 Room Air 12/30/16 04:00 98.0 62 20 150/68 (95) 94 12/30/16 04:00 Room Air 12/30/16 00:00 Room Air 12/30/16 00:00 97.4 66 20 132/60 (84) 93 12/29/16 21:00 Room Air 12/29/16 20:00 98.1 69 18 161/72 (101) 96 12/29/16 19:56 74 12/29/16 16:00 98.4 73 20 149/66 (93) 94 . Laboratory Tests Test 12/30/16 10:50 Potassium Level 2.7 MEQ/L Imaging Lower Extremity Ultrasound 12/23/16712 Signed Impressions: Service Date/Time: Friday, December 23, 2016 08:02 - CONCLUSION: Normal examination. No evidence of DVT Aneesh Bello MD Chest X-Ray 12/23/16712 Signed Impressions: Service Date/Time: Friday, December 23, 2016 09:06 - CONCLUSION: Pacer, mild compensated cardiomegaly. Negative for pneumothorax. Homero Guerra MD FACR Thoracic Spine CT 12/23/16 Signed Impressions: Service Date/Time: Friday, December 23, 2016 20:48 - CONCLUSION: Moderate degenerative changes as described above. There is no evidence of acute fracture. . Rick Figueroa MD Lumbar Spine CT 12/23/16 Signed Impressions: Service Date/Time: Friday, December 23, 2016 20:48 - CONCLUSION: 1. Moderate degenerative changes as described above. There is no evidence of acute fracture. 2. Moderate spinal canal stenosis at L2-L3. Rick Figueroa MD Cervical Spine CT 10/9/17 0000 Signed Impressions: Service Date/Time: Friday, December 23, 2016 20:42 - CONCLUSION: 1. Moderate degenerative changes as described above. There is no evidence of acute fracture. Rick Figueroa MD Physical Exam GENERAL: awake and alert, not in respiratory distress. Up in chair SKIN: Warm and dry. Has improving purpuric rash in both UE and both legs, no embolic lesions seen in hands or feet HEAD: Atraumatic. Normocephalic. No temporal wasting, or tenderness. EYES: [place] conjunctiva. No petechia or hemorrhage. No scleral icterus. No injection or drainage. EARS, NOSE AND THROAT: Nose without bleeding or purulent nasal discharge. Mucous membranes pink and moist. No oral lesions noted. She wears upper dentures and partial lower NECK: Trachea midline. Supple and not tender, no meningeal signs CARDIOVASCULAR: Regular rate and rhythm. Has murmur systolic at base of the heart. No rub. Sternotomy scar C/W surgical history. Pacer in her left upper chest with no evidence of infection RESPIRATORY: Clear to auscultation. Breath sounds equal bilaterally. No rales , wheezing or rhonchi. Decreased at the bases ABDOMEN: Soft, slightly round, non-tender, nondistended. Bowel sounds present and normoactive. No guarding. No rebound. No organomegaly. EXTREMITIES: No clubbing, cyanosis. Has some pitting edema in both feet, notable for the purpuric rash in forearms and legs. No calf tenderness. Well perfused and warm. NEUROLOGICAL: Awake and alert. Cranial nerves grossly intact. Motor grossly within normal limits. PSYCHIATRIC: Normal affect, calm and cooperative. LINE: No evidence of infection Assessment & Plan Remarks IMPRESSION Strep viridans sepsis, on admission, very worrisome for endovascular infection - she is S/P MVR and has pacemaker, both done 2014 Atrial fib, now in NSR, due to fever, infection BUE and BLE pain, and weakness, etiology Confusion, due to sepsis RECOMMENDATION Continue Rocephin - anticipated end date Feb 05 (6 weeks IV Abx) Abx form filled out Spoke with daughter - patient will follow-up with Dr Selby - I gave her the office number - Gave patient referral to Dr Mally Selby Discussed options again with her daughter about options for short suppression vs long suppression with oral Abx, or no suppressions Explained plan to patient and family member Shiela Romo MD Dec 30, 2016 12:13
[2016-12-30] MEDS: cefTRIAXone INJ 2,000 MG in SODIUM CHLORIDE 0.9% INJ 100 ML IV SCH (12:19)
== END 2016-12-30 15:22 | disposition home health service (06) | DRG 871 ==
LOC: NEPE 07:02 → NEDA 12:11 → HIME 14:40 → N04A 12-24 13:00
PROVIDERS: ADMIT Family Medicine; ATTEND Family Medicine
DX: A40.8 Other streptococcal sepsis (principal); I50.23 Acute on chronic systolic (congestive) heart failure; N17.9 Acute kidney failure, unspecified; I48.0 Paroxysmal atrial fibrillation; N39.0 Urinary tract infection, site not specified; G54.0 Brachial plexus disorders; E03.9 Hypothyroidism, unspecified; E78.5 Hyperlipidemia, unspecified; E87.6 Hypokalemia; I35.0 Nonrheumatic aortic (valve) stenosis; Z95.3 Presence of xenogenic heart valve; Z95.0 Presence of cardiac pacemaker; I11.0 Hypertensive heart disease with heart failure; M79.604 Pain in right leg; M79.605 Pain in left leg; E66.9 Obesity, unspecified; Z68.33 Body mass index [BMI] 33.0-33.9, adult; I25.10 Atherosclerotic heart disease of native coronary artery without angina pectoris; Z96.651 Presence of right artificial knee joint; Z96.619 Presence of unspecified artificial shoulder joint
CPT/HCPCS: 36569; 51702; 71010; 72125; 72128; 72131; 76937; 80048; 80053; 80202; 81001; 82550; 83519; 83605; 83880; 84132; 84443; 85025; 85610; 85652; 85730; 86140; 86255; 87040; 87086; 87186; 87205; 87641; 93005; 93306; 93970; 94150; 96365; 96366; 96368; 96375; J0282; J0696; J1642; J2270; J2405; J2543; J3370; J7040; J7050; J7512

== ENCOUNTER 2017-01-11 18:10 | Inpatient (IN) | payer OTHER, MEDICARE ==
[~2017-01-11] VITALS: Ht 152.4 cm; Wt 74.9 kg
[~2017-01-11 18:10] MED LIST changes: -AMIT10TA13 PO; +AMIT10TA6 PO; -AMLO5TAB96 PO; +ASPI325T PO; -ASPI81 PO; +CEFT2INJ2 IV; +COMMODE 3-IN-11 MIS; -FISH1000 PO; +FISHCAP4 PO; +FURO20TA PO; -LASI20TA PO; -LEVO.05 PO; +LEVO50TA4 PO; +LIDO1PAD52 TOPICAL; -LOSA25TA31 PO; +LOSA50TA PO; -MELO15TA2 PO; +METO100T PO; -NAPR500 PO; +OXYC1CAP PO; +POTA10CA PO; +PRED5TAB PO; +PROT40TA PO; -ROSU10 PO; +ROSU1TAB6 PO; -TAB-TAB PO; +TRAM50TA PO; +VITA1000 PO
[2017-01-11 18:12] VITALS: BP 120/77
[2017-01-11 18:18] VITALS: BP 122/57; PULSE 97; RESP 20; TEMP 98; O2SAT 92
[2017-01-11] MEDS ORDERED: SODIUM CHLORIDE 0.9% FLUSH 5 ML FLUSH IV FLUSH PRN (18:30)
--- NOTE | 2017-01-11 18:47 | PD ---
HPI Chief Complaint: General Weakness Time Seen by Provider: 18:22 Travel History International Travel<30 days: No Contact w/Intl Traveler<30days: No Traveled to known affect area: No History of Present Illness HPI Patient comes in by EMS for reported generalized weakness. Patient reports that she is just not been feeling well today. Patient denies any pain anywhere. Denies any nausea, vomiting, chest pain, shortness of breath, fevers , headache, numbness tingling anywhere, or loss change in bowel or bladder. Shortly after arrival patient's daughter is at bedside reports that her mother received her IV antibiotics today, but did not take her other meds. States that she knows that she slept most of the day. Around 4:30 5:00 her mother was up and went over to check on her. States that when her mother sitting on the toilet going to the bathroom she began complaining of neck pain, weakness, and vomited 1. Denies any diarrhea. Denies any other changes in mental status. PFSH Past Medical History Hx Anticoagulant Therapy: No Arthritis: Yes Autoimmune Disease: No Blood Disorders: No Cardiovascular Problems: Yes (PM) High Cholesterol: Yes Chemotherapy: No Cerebrovascular Accident: No Diabetes: No Endocrine: Yes Gastrointestinal Disorders: No Genitourinary: No Hypertension: Yes Immune Disorder: No Musculoskeletal: Yes Neurologic: No Reproductive: No Respiratory: Yes (on 3L home for sleep) Thyroid Disease: Yes ?: Not Past Surgical History Appendectomy: Yes Hysterectomy: No Other Surgery: Yes Social History Alcohol Use: Yes (occaisonal) Tobacco Use: No Substance Use: No Allergies-Medications (Allergen,Severity, Reaction): Coded Allergies: Iodinated Contrast- Oral and IV Dye (Verified Allergy, Severe, EYES SWELLING, 01/11/17) iodine (Verified Allergy, Severe, EYES SWELLING, 01/11/17) potassium iodide (Verified Allergy, Severe, EYES SWELLING, 01/11/17) povidone-iodine (Verified Allergy, Severe, EYES SWELLING, 01/11/17) sodium iodide (Verified Allergy, Severe, EYES SWELLING, 01/11/17) sodium iodide (Verified Allergy, Severe, EYES SWELLING, 01/11/17) Uncoded Allergies: IVP DYE (Allergy, Unknown, EYES SWELLING, 05/17/08) Reported Meds & Prescriptions Reported Meds & Active Scripts Active Potassium Chloride ER (Potassium Chloride) 10 Meq Cap 20 Meq PO DAILY Furosemide 20 Mg Tab 20 Mg PO DAILY 30 Days Rosuvastatin (Rosuvastatin Calcium) 10 Mg Tab 10 Mg PO HS 30 Days Levothyroxine (Levothyroxine Sodium) 50 Mcg Tab 50 Mcg PO DAILY 30 Days Losartan (Losartan Potassium) 50 Mg Tab 50 Mg PO DAILY 30 Days Aspirin 325 Mg Tab 325 Mg PO DAILY Metoprolol Tartrate 100 Mg Tab 100 Mg PO BID 30 Days Reported Prednisone 10 Mg Tab 15 Mg PO DAILY Tylenol (Acetaminophen) 325 Mg Tab 325 Mg PO DAILY Fish Oil 1000 mg ([place]-3 Fatty Acids) 300 Mg-1,000 Mg Cap 1,000 Mg PO DAILY Ceftriaxone Inj (Ceftriaxone Sodium/Dextrose) 2 Gm/50 Ml Bagp 2 Gm IV Q24H Protonix (Pantoprazole Sodium) 40 Mg Tab 40 Mg PO BID Amitriptyline (Amitriptyline HCl) 10 Mg Tab 20 Mg PO HS Vitamin D-1000 (Cholecalciferol) 1,000 Unit Tab 1,000 Units PO DAILY Review of Systems ROS Limitations: Poor Historian Except as stated in HPI: all other systems reviewed are Neg Physical Exam Exam Limitations: Poor Historian Narrative GENERAL: Well-developed, overly nourished, in no acute distress, and non-ill appearing. SKIN: Focused skin assessment warm and dry. HEAD: Atraumatic. Normocephalic. EYES: Pupils equal and round. EOMI. No scleral icterus. No injection or drainage. ENT: No nasal bleeding or discharge. Mucous membranes pink and moist. NECK: Trachea midline. Supple. No nuclear rigidity. CARDIOVASCULAR: Regular rate and rhythm. Murmur appreciated. RESPIRATORY: No accessory muscle use. No respiratory distress. Decreased breath sounds throughout. GASTROINTESTINAL: Abdomen soft, non-tender, nondistended, and no guarding. Hepatic and splenic margins not palpable. Normal bowel sounds 4. No pulsatile mass. MUSCULOSKELETAL: No obvious deformities. No clubbing. No cyanosis. 1+ edema bilateral lower extremities. Full range of motion bilateral upper extremities. NEUROLOGICAL: Awake and alert. No obvious cranial nerve deficits. Motor grossly within normal limits. Normal speech. PSYCHIATRIC: Appropriate mood and affect; insight and judgment normal. Data Data Last Documented VS Vital Signs Date Time Temp Pulse Resp B/P (MAP) Pulse Ox O2 Delivery O2 Flow Rate FiO2 01/11/17 18:18 98.0 97 20 122/57 (78) 92 Nasal Cannula 2.00 Orders Orders Ammonia (01/11/17 18:24) Complete Blood Count With Diff (01/11/17 18:24) Comprehensive Metabolic Panel (01/11/17 18:24) Creatine Kinase (Cpk) (01/11/17 18:24) Prothrombin Time / Inr (Pt) (01/11/17 18:24) Act Partial Throm Time (Ptt) (01/11/17 18:24) Troponin I (01/11/17 18:24) Urinalysis - C+S If Indicated (01/11/17 18:24) Chest, Single Ap (01/11/17 18:24) Blood Glucose (01/11/17 18:24) Ecg Monitoring (01/11/17 18:24) Iv Access Insert/Monitor (01/11/17 18:24) Oximetry (01/11/17 18:24) Sodium Chloride 0.9% Flush (Ns Flush) (01/11/17 18:30) Lactic Acid Sepsis Protocol (01/11/17 18:24) B-Type Natriuretic Peptide (01/11/17 18:24) Magnesium (Mg) (01/11/17 18:24) Aspirin Chew (Aspirin Chew) (01/11/17 19:00) Metoprolol Tartrate (Lopressor) (01/11/17 19:00) Furosemide Inj (Lasix Inj) (01/11/17 20:15) Potassium Chlor 20 Meq Premix (Kcl 20 Me (01/11/17 20:15) Acetaminophen (Tylenol) (01/11/17 20:15) Place In Observation (01/11/17 ) Vital Signs (Adult) Q4H (01/11/17 20:23) Director Business Development / Telemetry .CONTINUOUS (01/11/17 20:23) Intake + Output TAY.QSHIFT (01/11/17 20:23) Diet Npo (01/12/17 Breakfast) Sodium Chloride 0.9% Flush (Ns Flush) (01/11/17 20:30) Sodium Chloride 0.9% Flush (Ns Flush) (01/11/17 21:00) Ondansetron Inj (Zofran Inj) (01/11/17 20:30) Comprehensive Metabolic Panel (01/12/17 06:00) Complete Blood Count With Diff (01/12/17 06:00) Troponin I (01/11/17 20:23) Troponin I (01/12/17 02:23) Electrocardiogram (01/11/17 20:23) Electrocardiogram (01/12/17 02:23) Pt Request For Service (01/11/17 20:23) Case Management Consult (01/11/17 20:23) Scd Bilateral/Knee High TAY.BID (01/11/17 20:23) Naloxone Inj (Narcan Inj) (01/11/17 20:30) Magnesium Hydroxide Liq (Milk Of Magnesi (01/11/17 20:30) Sennosides (Senokot) (01/11/17 20:30) Bisacodyl Supp (Dulcolax Supp) (01/11/17 20:30) Lactulose Liq (Lactulose Liq) (01/11/17 20:30) Consult Cardiology (01/11/17 ) Consult Infectious Disease (01/11/17 ) [place]gren Sedimentation Rate (01/11/17 20:26) Echo 2d Limited (01/11/17 20:26) Ceftriaxone Inj (Rocephin Inj) (01/11/17 21:00) Blood Culture (01/11/17 20:26) Electrocardiogram (01/11/17 18:19) Labs Laboratory Tests Test 01/11/17 18:46 White Blood Count 13.2 TH/MM3 Red Blood Count 3.81 MIL/MM3 Hemoglobin 11.2 GM/DL Hematocrit 34.2 % Mean Corpuscular Volume 89.8 FL Mean Corpuscular Hemoglobin 29.4 PG Mean Corpuscular Hemoglobin Concent 32.8 % Red Cell Distribution Width 16.0 % Platelet Count 197 TH/MM3 Mean Platelet Volume 7.5 FL Neutrophils (%) (Auto) 73.9 % Lymphocytes (%) (Auto) 16.3 % Monocytes (%) (Auto) 7.5 % Eosinophils (%) (Auto) 1.4 % Basophils (%) (Auto) 0.9 % Neutrophils # (Auto) 9.7 TH/MM3 Lymphocytes # (Auto) 2.2 TH/MM3 Monocytes # (Auto) 1.0 TH/MM3 Eosinophils # (Auto) 0.2 TH/MM3 Basophils # (Auto) 0.1 TH/MM3 CBC Comment DIFF FINAL Differential Comment Prothrombin Time 11.4 SEC Prothromb Time International Ratio 1.0 RATIO Activated Partial Thromboplast Time 26.6 SEC Blood Urea Nitrogen 15 MG/DL Creatinine 1.08 MG/DL Random Glucose 114 MG/DL Total Protein 6.5 GM/DL Albumin 3.1 GM/DL Calcium Level 8.7 MG/DL Magnesium Level 2.2 MG/DL Alkaline Phosphatase 62 U/L Aspartate Amino Transf (AST/SGOT) 25 U/L Alanine Aminotransferase (ALT/SGPT) 24 U/L Total Bilirubin 0.5 MG/DL Sodium Level 135 MEQ/L Potassium Level 2.8 MEQ/L Chloride Level 95 MEQ/L Carbon Dioxide Level 28.5 MEQ/L Anion Gap 12 MEQ/L Estimat Glomerular Filtration Rate 48 ML/MIN Lactic Acid Level 1.4 mmol/L Ammonia 14 MCMOL/L Total Creatine Kinase 39 U/L Troponin I 0.41 NG/ML B-Type Natriuretic Peptide 651 PG/ML MDM Medical Decision Making Medical Screen Exam Complete: Yes Emergency Medical Condition: Yes Interpretation(s) EKG reviewed by Dr. Dueñas shows sinus rhythm ventricular rate of 99. Left bundle branch block. No STEMI. Appears unchanged from previous EKG. Last Impressions Chest X-Ray 01/11/17 3384 Signed Impressions: Service Date/Time: Wednesday, January 11, 2017 18:30 - CONCLUSION: No acute disease. Kong Mitchell MD Laboratory Tests Test 01/11/17 18:46 White Blood Count 13.2 TH/MM3 (4.0-11.0) Red Blood Count 3.81 MIL/MM3 (4.00-5.30) Hemoglobin 11.2 GM/DL (11.6-15.3) Hematocrit 34.2 % (35.0-46.0) Mean Corpuscular Volume 89.8 FL (80.0-100.0) Mean Corpuscular Hemoglobin 29.4 PG (27.0-34.0) Mean Corpuscular Hemoglobin Concent 32.8 % (32.0-36.0) Red Cell Distribution Width 16.0 % (11.6-17.2) Platelet Count 197 TH/MM3 (150-450) Mean Platelet Volume 7.5 FL (7.0-11.0) Neutrophils (%) (Auto) 73.9 % (16.0-70.0) Lymphocytes (%) (Auto) 16.3 % (9.0-44.0) Monocytes (%) (Auto) 7.5 % (0.0-8.0) Eosinophils (%) (Auto) 1.4 % (0.0-4.0) Basophils (%) (Auto) 0.9 % (0.0-2.0) Neutrophils # (Auto) 9.7 TH/MM3 (1.8-7.7) Lymphocytes # (Auto) 2.2 TH/MM3 (1.0-4.8) Monocytes # (Auto) 1.0 TH/MM3 (0-0.9) Eosinophils # (Auto) 0.2 TH/MM3 (0-0.4) Basophils # (Auto) 0.1 TH/MM3 (0-0.2) CBC Comment DIFF FINAL Differential Comment Prothrombin Time 11.4 SEC (9.8-11.6) Prothromb Time International Ratio 1.0 RATIO Activated Partial Thromboplast Time 26.6 SEC (24.3-30.1) Blood Urea Nitrogen 15 MG/DL (7-18) Creatinine 1.08 MG/DL (0.50-1.00) Random Glucose 114 MG/DL (74-106) Total Protein 6.5 GM/DL (6.4-8.2) Albumin 3.1 GM/DL (3.4-5.0) Calcium Level 8.7 MG/DL (8.5-10.1) Magnesium Level 2.2 MG/DL (1.5-2.5) Alkaline Phosphatase 62 U/L (45-117) Aspartate Amino Transf (AST/SGOT) 25 U/L (15-37) Alanine Aminotransferase (ALT/SGPT) 24 U/L (10-53) Total Bilirubin 0.5 MG/DL (0.2-1.0) Sodium Level 135 MEQ/L (136-145) Potassium Level 2.8 MEQ/L (3.5-5.1) Chloride Level 95 MEQ/L (98-107) Carbon Dioxide Level 28.5 MEQ/L (21.0-32.0) Anion Gap 12 MEQ/L (5-15) Estimat Glomerular Filtration Rate 48 ML/MIN (>89) Lactic Acid Level 1.4 mmol/L (0.4-2.0) Ammonia 14 MCMOL/L (11-32) Total Creatine Kinase 39 U/L (26-192) Troponin I 0.41 NG/ML (0.02-0.05) B-Type Natriuretic Peptide 651 PG/ML (0-100) Differential Diagnosis Acute coronary syndrome, pneumonia, generalized weakness, sepsis, UTI, CHF exacerbation, atypical chest pain Narrative Course Patient seen and examined. Initial of her radiological studies were ordered. Patient was given her dose of aspirin and metoprolol she had missed this today. Patient was given IV potassium secondary to hypokalemia. Patient was given a dose of Lasix. Discussed patient with Dr. Lacey, who saw and evaluated the patient and he discussed all findings and plan of care with patient and her daughter who is agreeable for having patient readmitted to the hospital. All questions were answered. Discussed patient with hospitalist who is agreeable to admit the patient. Physician Communication Physician Communication [address] Dove, who is agreeable to admit the patient. Diagnosis Primary Impression: Generalized weakness Additional Impressions: Elevated troponin Hypokalemia CHF (congestive heart failure) Qualified Codes: I50.9 - Heart failure, unspecified Admitting Information Admitting Physician Requests: Observation Condition: Stable Gabe Huertas Jan 11, 2017 18:47
--- NOTE | 2017-01-11 18:50 | RADRPT ---
EXAM DATE/TIME: 01/11/2017 18:30 [facility] COMPARISON: CHEST SINGLE AP, December 27, 2016, 17:16. INDICATIONS : Shortness of breath. MEDICAL HISTORY : Cardiovascular disease. Hypertension SURGICAL HISTORY : Pacemaker. Appendectomy. CABG. Bilateral shoulder replacement. Picc line. ENCOUNTER: Initial ACUITY: 2 days PAIN SCORE: 0/10 LOCATION: chest FINDINGS: A single AP semierect view of the chest was obtained and demonstrates that the patient is status post median sternotomy. The left subclavian sequential transvenous pacer remains in place. There is a rig ht-sided PICC line. Multiple overlying electrocardiogram leads are noted. There no confluent infiltra sera or effusions. The heart size at the upper limits of normal with no perihilar edema. Atherosclerot ic calcifications are present in the aorta. CONCLUSION: No acute disease. Kong Mitchell MD on January 11, 2017 at 18:48 Board Certified Radiologist. This report was verified electronically.
[2017-01-11] MEDS ORDERED: PRED10 PO (18:54)
[2017-01-11] MEDS ORDERED: FISH100020 PO (18:54)
[2017-01-11] MEDS ORDERED: TYLE325T PO (18:54)
[2017-01-11 18:58] LABS: AUTOMATED NEUTROPHIL # 9.7 TH/MM3 (1.8-7.7); BASOPHIL # 0.1 TH/MM3 (0-0.2); BASOPHIL % 0.9 % (0.0-2.0); EOSINOPHIL # 0.2 TH/MM3 (0-0.4); EOSINOPHIL % 1.4 % (0.0-4.0); HEMATOCRIT 34.2 % (35.0-46.0); HEMO FLAGS DIFF FINAL; LYMPH % 16.3 % (9.0-44.0); LYMPHOCYTE # 2.2 TH/MM3 (1.0-4.8); MEAN CELL VOLUME 89.8 FL (80.0-100.0); MEAN CORPUSCULAR HEMOGLOBIN 29.4 PG (27.0-34.0); MEAN CORPUSCULAR HGB CONC 32.8 % (32.0-36.0); MONO % 7.5 % (0.0-8.0); NEUT % 73.9 % (16.0-70.0); PLATELET COUNT 197 TH/MM3 (150-450); RED BLOOD COUNT 3.81 MIL/MM3 (4.00-5.30); WHITE BLOOD COUNT 13.2 TH/MM3 (4.0-11.0)
[2017-01-11] MEDS ORDERED: METOPROLOL TARTRATE 100 MG TAB PO ONE (19:00)
[2017-01-11] MEDS ORDERED: ASPIRIN 81 MG CHEW TAB PO ONE (19:00)
[2017-01-11 19:08] LABS: APTT (PATIENT) 26.6 SEC (24.3-30.1); PROTHROMBIN TIME - PATIENT 11.4 SEC (9.8-11.6)
[2017-01-11 19:26] LABS: ALKALINE PHOSPHATASE 62 U/L (45-117); ALT (GPT) 24 U/L (10-53); ANION GAP 12 MEQ/L (5-15); AST (GOT) 25 U/L (15-37); BICARBONATE 28.5 MEQ/L (21.0-32.0); BLOOD UREA NITROGEN 15 MG/DL (7-18); CHLORIDE 95 MEQ/L (98-107); GLOMERULAR FILTRATION RATE 48 ML/MIN (>89); MAGNESIUM 2.2 MG/DL (1.5-2.5); SODIUM (NA) 135 MEQ/L (136-145); TOTAL BILIRUBIN ADULT 0.5 MG/DL (0.2-1.0)
[2017-01-11 19:36] LABS: CREATINE KINASE 39 U/L (26-192)
[2017-01-11 19:37] LABS: POTASSIUM 2.8 MEQ/L (3.5-5.1)
[2017-01-11] MEDS ORDERED: FUROSEMIDE 40 MG/4 ML VIAL IV PUSH ONE (20:15)
[2017-01-11] MEDS ORDERED: ACETAMINOPHEN 500 MG CPLT PO ONE (20:15)
[2017-01-11] MEDS ORDERED: BISACODYL 10 MG SUPP RECTAL PRN (20:30)
[2017-01-11] MEDS ORDERED: NALOXONE HCL 0.4 MG/ML AMP IV PUSH PRN ×2 (20:30→21:30)
[2017-01-11] MEDS ORDERED: ONDANSETRON HCL 4 MG/2 ML VIAL IVP PRN (20:30)
[2017-01-11] MEDS ORDERED: SENNOSIDES 8.6 MG TAB PO PRN (20:30)
[2017-01-11] MEDS ORDERED: SODIUM CHLORIDE 0.9% FLUSH 10 ML FLUSH IV FLUSH PRN (20:30)
[2017-01-11] MEDS ORDERED: MAGNESIUM HYDROXIDE SUSP 30 ML CUP PO PRN (20:30)
[2017-01-11] MEDS ORDERED: LACTULOSE SYRUP 20 GM/30 ML CUP PO PRN (20:30)
[2017-01-11 20:39] VITALS: BP 161/70; PULSE 96; RESP 16; O2SAT 99
--- NOTE | 2017-01-11 20:58 | HHI.HP ---
[facility] Ramona Munoz MD Admission Diagnosis Diagnoses: Chief Complaint: nausea and weekness Travel History International Travel<30 Days: No Contact w/Intl Traveler <30 Da: No Traveled to Known Affected Are: No History of Present Illness Written by JEROD Lal acting as scribe for Dr. Hernandez] on 01/11/17 at 20:50. 86 y/o female with a history of hypothyroid, HTN, HLD, CHF (last echo EF 35-40% ) and afib presented to the ED with complaints of weakness and nausea. She states she was on the toilet this afternoon and became very weak and was unable to get up. She had associated nausea but no vomiting. She also is complaining of a Sharp, 10/10, bilateral MARQUEZ, with no associated no vision change. The daughter is at the bedside and states because of the nausea she did not take any medications today including her hypertensives and prednisone. She was just discharged Dec 30, 2016 from the hospital for urosepsis and has been getting IV antibiotics at home with home health. She was seen by her PCP and Lasix was increased to 40mg a day, per the daughter she was not aware she had to limit fluid. Edema is better in lower extremities. Daughter also states she is on a prednisone taper of and is currently on 12.5mg, last taper was Friday. 3 months ago she was diagnosed with brachial plexitis injury in which she is taking the prednisone for. Patient denies any neck pain, sob, fever, chills or chest pain. Review of Systems Except as stated in HPI: all other systems reviewed are Neg Past Family Social History Past Medical History Hypothyroidism HTN HLD A. fib Past Surgical History Permanent pacemaker Status post mitral valve repair in 2013 Appendectomy Hysterectomy 2 shoulder surgery Right knee replacement Reported Medications Reported Meds & Active Scripts Active Potassium Chloride ER (Potassium Chloride) 10 Meq Cap 20 Meq PO DAILY Furosemide 20 Mg Tab 20 Mg PO DAILY 30 Days Rosuvastatin (Rosuvastatin Calcium) 10 Mg Tab 10 Mg PO HS 30 Days Levothyroxine (Levothyroxine Sodium) 50 Mcg Tab 50 Mcg PO DAILY 30 Days Losartan (Losartan Potassium) 50 Mg Tab 50 Mg PO DAILY 30 Days Aspirin 325 Mg Tab 325 Mg PO DAILY Metoprolol Tartrate 100 Mg Tab 100 Mg PO BID 30 Days Reported Prednisone 10 Mg Tab 15 Mg PO DAILY Tylenol (Acetaminophen) 325 Mg Tab 325 Mg PO DAILY Fish Oil 1000 mg ([place]-3 Fatty Acids) 300 Mg-1,000 Mg Cap 1,000 Mg PO DAILY Ceftriaxone Inj (Ceftriaxone Sodium/Dextrose) 2 Gm/50 Ml Bagp 2 Gm IV Q24H Protonix (Pantoprazole Sodium) 40 Mg Tab 40 Mg PO BID Amitriptyline (Amitriptyline HCl) 10 Mg Tab 20 Mg PO HS Vitamin D-1000 (Cholecalciferol) 1,000 Unit Tab 1,000 Units PO DAILY Allergies: Coded Allergies: Iodinated Contrast- Oral and IV Dye (Verified Allergy, Severe, EYES SWELLING, 01/11/17) iodine (Verified Allergy, Severe, EYES SWELLING, 01/11/17) potassium iodide (Verified Allergy, Severe, EYES SWELLING, 01/11/17) povidone-iodine (Verified Allergy, Severe, EYES SWELLING, 01/11/17) sodium iodide (Verified Allergy, Severe, EYES SWELLING, 01/11/17) sodium iodide (Verified Allergy, Severe, EYES SWELLING, 01/11/17) Uncoded Allergies: IVP DYE (Allergy, Unknown, EYES SWELLING, 05/17/08) Active Ordered Medications Current Medications Medications (Trade) Dose Ordered Sig/Yuly Route Start Time Stop Time Status Last Admin (NS Flush) 2 ml UNSCH PRN IV FLUSH 01/11/17 18:30 Potassium Chloride 100 ml @ 50 mls/hr Q2H IV 01/11/17 20:15 01/12/17 00:14 (NS Flush) 2 ml UNSCH PRN IV FLUSH 01/11/17 20:30 (NS Flush) 2 ml BID IV FLUSH 01/11/17 21:00 (Zofran Inj) 4 mg Q6H PRN IVP 01/11/17 20:30 (Narcan Inj) 0.4 mg UNSCH PRN IV PUSH 01/11/17 20:30 (Milk Of Magnesia Liq) 30 ml Q12H PRN PO 01/11/17 20:30 (Senokot) 17.2 mg Q12H PRN PO 01/11/17 20:30 (Dulcolax Supp) 10 mg DAILY PRN RECTAL 01/11/17 20:30 (Lactulose Liq) 30 ml DAILY PRN PO 01/11/17 20:30 Ceftriaxone Sodium 2000 mg/ Sodium Chloride 100 ml @ 200 mls/hr Q24H IV 01/11/17 21:00 Family History Father had a stroke Mother had Alzheimer's disease Social History Denies alcohol use Denies tobacco use. Denies illicit drug use Physical Exam Vital Signs Vital Signs Date Time Temp Pulse Resp B/P (MAP) Pulse Ox O2 Delivery O2 Flow Rate FiO2 01/11/17 20:39 96 16 161/70 (100) 99 Nasal Cannula 2.00 01/11/17 18:18 98.0 97 20 122/57 (78) 92 Nasal Cannula 2.00 01/11/17 18:12 120/77 (91) Physical Exam GENERAL: This is a well-nourished, well-developed patient, in no apparent distress. SKIN: No rashes, ecchymoses or lesions. Cool and dry. HEAD: Atraumatic. Normocephalic. EYES: Pupils equal round and reactive. No injection or drainage. ENT: Nose without bleeding, purulent drainage or septal hematoma. Airway patent. NECK: Trachea midline. No JVD or lymphadenopathy. Supple, nontender, no meningeal signs. CARDIOVASCULAR: Regular rate and rhythm without murmurs, gallops, or rubs. RESPIRATORY: Clear to auscultation. Breath sounds equal bilaterally. No wheezes , rales, or rhonchi. GASTROINTESTINAL: Abdomen soft, non-tender, nondistended. No hepato-splenomegaly , or palpable masses. No guarding. MUSCULOSKELETAL: Bilateral lower extremities +1 edema. No calf tenderness. NEUROLOGICAL: Awake and alert. Motor and sensory grossly within normal limits. Five out 5 strength. Normal speech. Laboratory Laboratory Tests Test 01/11/17 18:46 White Blood Count 13.2 Red Blood Count 3.81 Hemoglobin 11.2 Hematocrit 34.2 Mean Corpuscular Volume 89.8 Mean Corpuscular Hemoglobin 29.4 Mean Corpuscular Hemoglobin Concent 32.8 Red Cell Distribution Width 16.0 Platelet Count 197 Mean Platelet Volume 7.5 Neutrophils (%) (Auto) 73.9 Lymphocytes (%) (Auto) 16.3 Monocytes (%) (Auto) 7.5 Eosinophils (%) (Auto) 1.4 Basophils (%) (Auto) 0.9 Neutrophils # (Auto) 9.7 Lymphocytes # (Auto) 2.2 Monocytes # (Auto) 1.0 Eosinophils # (Auto) 0.2 Basophils # (Auto) 0.1 CBC Comment DIFF FINAL Differential Comment Prothrombin Time 11.4 Prothromb Time International Ratio 1.0 Activated Partial Thromboplast Time 26.6 Blood Urea Nitrogen 15 Creatinine 1.08 Random Glucose 114 Total Protein 6.5 Albumin 3.1 Calcium Level 8.7 Magnesium Level 2.2 Alkaline Phosphatase 62 Aspartate Amino Transf (AST/SGOT) 25 Alanine Aminotransferase (ALT/SGPT) 24 Total Bilirubin 0.5 Sodium Level 135 Potassium Level 2.8 Chloride Level 95 Carbon Dioxide Level 28.5 Anion Gap 12 Estimat Glomerular Filtration Rate 48 Lactic Acid Level 1.4 Ammonia 14 Total Creatine Kinase 39 Troponin I 0.41 B-Type Natriuretic Peptide 651 Result Diagram: 01/11/176 01/11/17 184 Imaging Last Impressions Chest X-Ray 01/11/17 1824 Signed Impressions: Service Date/Time: Friday, January 11, 2017 18:30 - CONCLUSION: No acute disease. MD Foster Arana VTE Risk Assessment Caprini VTE Risk Assessment: No/Low Risk (score <= 1) Caprini Risk Assessment Model Point Value = 1 Point Value = 2 Point Value = 3 Point Value = 5 Age 41-60 Minor surgery BMI > 25 kg/m2 Swollen legs Varicose veins or History of unexplained or recurrent spontaneous Oral contraceptives or hormone replacement Sepsis (< 1 month) Serious lung disease, including pneumonia (< 1 month) Abnormal pulmonary function Acute myocardial infarction Congestive heart failure (< 1 month) History of inflammatory bowel disease Medical patient at bed rest Age 61-74 Arthroscopic surgery Major open surgery (> 45 min) Laparoscopic surgery (> 45 min) Malignancy Confined to bed (> 72 hours) Immobilizing plaster cast Central venous access Age >= 75 History of VTE Family history of VTE Factor V Leiden Prothrombin [id number] Lupus anticoagulant Anticardiolipin antibodies Elevated serum homocysteine Heparin-induced thrombocytopenia Other congenital or acquired thrombophilia Stroke (< 1 month) Elective arthroplasty Hip, pelvis, or leg fracture Acute spinal cord injury (< 1 month) Prophylaxis Regimen Total Risk Factor Score Risk Level Prophylaxis Regimen 0-1 Low Early ambulation 2 Moderate Order ONE of the following: *Sequential Compression Device (SCD) *Heparin 5000 units SQ BID 3-4 Higher Order ONE of the following medications: *Heparin 5000 units SQ TID *Enoxaparin/Lovenox 40 mg SQ daily (WT < 150 kg, CrCl > 30 mL/min) *Enoxaparin/Lovenox 30 mg SQ daily (WT < 150 kg, CrCl > 10-29 mL/min) *Enoxaparin/Lovenox 30 mg SQ BID (WT < 150 kg, CrCl > 30 mL/min) AND/OR *Sequential Compression Device (SCD) 5 or more Highest Order ONE of the following medications: *Heparin 5000 units SQ TID (Preferred with Epidurals) *Enoxaparin/Lovenox 40 mg SQ daily (WT < 150 kg, CrCl > 30 mL/min) *Enoxaparin/Lovenox 30 mg SQ daily (WT < 150 kg, CrCl > 10-29 mL/min) *Enoxaparin/Lovenox 30 mg SQ BID (WT < 150 kg, CrCl > 30 mL/min) AND *Sequential Compression Device (SCD) Assessment and Plan Problem List: (1) CHF (congestive heart failure) ICD Code: I50.9 - Heart failure, unspecified Status: Acute (2) Elevated troponin ICD Code: R74.8 - Abnormal levels of other serum enzymes Status: Acute (3) Hypokalemia ICD Code: E87.6 - Hypokalemia Status: Acute (4) Generalized weakness ICD Code: R53.1 - Weakness Status: Acute Assessment and Plan 86 y/o female with a history of hypothyroid, HTN, HLD, CHF (last echo EF 35-40% ) and afib presented to the ED with complaints of weakness and nausea. Generalized Weakness, possibly due to adrenal insufficiency related to missed prednisone dose, or history of urosepsis -Verbal order "hydrocortisone 50mg IV x 1" -Head CT ordered -PO [place] for pain management -PT eval and treat Leukocytosis, possible endovascular strep infection, history of Viridans strep in last admission blood cultures WBCs 13.2 Chest x-ray was reviewed and shows no acute disease -Consult infectious disease for recommendations -IV antibiotics Rocephin -Blood cultures pending CHF, systolic, acute exacerbation Bilateral lower extremity edema, BNP 651 - Chest x-ray showed pacer, mild compensated cardiomegaly. Negative for pneumothorax - Lasix IV 40 mg given in the ED, continue home Lasix 40 mg by mouth - 2-D echo ordered Hypokalemia, potassium 2.8 -Supplementation ordered, trend labs, replace as needed -Resumed home potassium by mouth Elevated troponin, troponin 0.4 -Consult cardiology. -Serial troponin and EKGs Brachial plexitis, chronic - Diagnosed in [place] 3 months ago with brachial plexitis and was started on prednisone 40 mg and was tapered to 12.5 mg daily now - Continue prednisone 12.5 mg daily - Consult neurology for further recommendations HTN, chronic, currently elevated possible due to pain - Continue metoprolol 100 mg twice a day - Monitor BP trend Hypothyroidism - Continued home medications levothyroxine -TSH and T4 Ordered DVT prophylaxis: SCDs Discussed Condition With Patient, patient's daughter and ED physician Physician Certification 2 Midnight Certification Type: Admission for Inpatient Services Order for Inpatient Services The services are ordered in accordance with Medicare regulations or non- Medicare payer requirements, as applicable. In the case of services not specified as inpatient-only, they are appropriately provided as inpatient services in accordance with the 2-midnight benchmark. Estimated LOS (days): 3 days is the estimated time the patient will need to remain in the hospital, assuming treatment plan goals are met and no additional complications. Post-Hospital Plan: Home Notes: This note was transcribed by scribe [La Nena Santiago]. I, Dr. Frederick Dove personally performed the history, physical exam, and medical decision making; and confirmed the accuracy of the information in the transcribed note. Authenticated by Dr. Frederick Dove on 01/12/17 at 03:29. Problem Qualifiers (1) CHF (congestive heart failure): Qualified Codes: I50.9 - Heart failure, unspecified La Nena Santiago Jan 11, 2017 20:58 Frederick Dove MD Jan 12, 2017 03:30
[2017-01-11] MEDS ORDERED: HYDROCORTISONE SOD SUCCINATE 100 MG VIAL IV PUSH ONE (21:00)
[2017-01-11] MEDS: SODIUM CHLORIDE 0.9% FLUSH 10 ML FLUSH IV FLUSH SCH (21:14)
[2017-01-11] MEDS: cefTRIAXone INJ 2,000 MG in SODIUM CHLORIDE 0.9% INJ 100 ML IV SCH (21:14)
[2017-01-11] MEDS: POTASSIUM CHLOR 20 MEQ PREMIX 100 ML IV SCH (21:15)
[2017-01-11] MEDS: METOPROLOL TARTRATE 100 MG TAB PO SCH (21:15)
[2017-01-11 21:30] VITALS: BP 169/69; PULSE 88; RESP 20; O2SAT 98
[2017-01-11] MEDS ORDERED: ACETAMINOPHEN/HYDROcodone 325 MG/7.5 MG TAB PO PRN (21:30)
[2017-01-11] MEDS ORDERED: ACETAMINOPHEN/HYDROcodone 325 MG/5 MG TAB PO PRN (21:30)
--- NOTE | 2017-01-11 21:43 | PD ---
Data Data Last Documented VS Vital Signs Date Time Temp Pulse Resp B/P (MAP) Pulse Ox O2 Delivery O2 Flow Rate FiO2 01/11/17 20:39 96 16 161/70 (100) 99 Nasal Cannula 2.00 01/11/17 18:18 98.0 Orders Orders Ammonia (01/11/17 18:24) Complete Blood Count With Diff (01/11/17 18:24) Comprehensive Metabolic Panel (01/11/17 18:24) Creatine Kinase (Cpk) (01/11/17 18:24) Prothrombin Time / Inr (Pt) (01/11/17 18:24) Act Partial Throm Time (Ptt) (01/11/17 18:24) Troponin I (01/11/17 18:24) Urinalysis - C+S If Indicated (01/11/17 18:24) Chest, Single Ap (01/11/17 18:24) Blood Glucose (01/11/17 18:24) Ecg Monitoring (01/11/17 18:24) Iv Access Insert/Monitor (01/11/17 18:24) Oximetry (01/11/17 18:24) Sodium Chloride 0.9% Flush (Ns Flush) (01/11/17 18:30) Lactic Acid Sepsis Protocol (01/11/17 18:24) B-Type Natriuretic Peptide (01/11/17 18:24) Magnesium (Mg) (01/11/17 18:24) Aspirin Chew (Aspirin Chew) (01/11/17 19:00) Metoprolol Tartrate (Lopressor) (01/11/17 19:00) Furosemide Inj (Lasix Inj) (01/11/17 20:15) Potassium Chlor 20 Meq Premix (Kcl 20 Me (01/11/17 20:15) Acetaminophen (Tylenol) (01/11/17 20:15) Place In Observation (01/11/17 ) Vital Signs (Adult) Q4H (01/11/17 20:23) Senior Infrastructure Architect / Telemetry .CONTINUOUS (01/11/17 20:23) Intake + Output TAY.QSHIFT (01/11/17 20:23) Diet Npo (01/12/17 Breakfast) Sodium Chloride 0.9% Flush (Ns Flush) (01/11/17 20:30) Sodium Chloride 0.9% Flush (Ns Flush) (01/11/17 21:00) Ondansetron Inj (Zofran Inj) (01/11/17 20:30) Comprehensive Metabolic Panel (01/12/17 06:00) Complete Blood Count With Diff (01/12/17 06:00) Troponin I (01/11/17 20:23) Troponin I (01/12/17 02:23) Electrocardiogram (01/11/17 20:23) Electrocardiogram (01/12/17 02:23) Pt Request For Service (01/11/17 20:23) Case Management Consult (01/11/17 20:23) Scd Bilateral/Knee High TAY.BID (01/11/17 20:23) Naloxone Inj (Narcan Inj) (01/11/17 20:30) Magnesium Hydroxide Liq (Milk Of Magnesi (01/11/17 20:30) Sennosides (Senokot) (01/11/17 20:30) Bisacodyl Supp (Dulcolax Supp) (01/11/17 20:30) Lactulose Liq (Lactulose Liq) (01/11/17 20:30) Consult Cardiology (01/11/17 ) Consult Infectious Disease (01/11/17 ) Westergren Sedimentation Rate (01/11/17 20:26) Echo 2d Limited (01/11/17 20:26) Ceftriaxone Inj (Rocephin Inj) (01/11/17 21:00) Blood Culture (01/11/17 20:26) Electrocardiogram (01/11/17 18:19) Hydrocortisone Inj (Solucortef Inj) (01/11/17 21:00) Admit Order (Ed Use Only) (01/11/17 20:59) Labs Laboratory Tests Test 01/11/17 18:46 White Blood Count 13.2 TH/MM3 Red Blood Count 3.81 MIL/MM3 Hemoglobin 11.2 GM/DL Hematocrit 34.2 % Mean Corpuscular Volume 89.8 FL Mean Corpuscular Hemoglobin 29.4 PG Mean Corpuscular Hemoglobin Concent 32.8 % Red Cell Distribution Width 16.0 % Platelet Count 197 TH/MM3 Mean Platelet Volume 7.5 FL Neutrophils (%) (Auto) 73.9 % Lymphocytes (%) (Auto) 16.3 % Monocytes (%) (Auto) 7.5 % Eosinophils (%) (Auto) 1.4 % Basophils (%) (Auto) 0.9 % Neutrophils # (Auto) 9.7 TH/MM3 Lymphocytes # (Auto) 2.2 TH/MM3 Monocytes # (Auto) 1.0 TH/MM3 Eosinophils # (Auto) 0.2 TH/MM3 Basophils # (Auto) 0.1 TH/MM3 CBC Comment DIFF FINAL Differential Comment Erythrocyte Sedimentation Rate 18 mm/hr Prothrombin Time 11.4 SEC Prothromb Time International Ratio 1.0 RATIO Activated Partial Thromboplast Time 26.6 SEC Blood Urea Nitrogen 15 MG/DL Creatinine 1.08 MG/DL Random Glucose 114 MG/DL Total Protein 6.5 GM/DL Albumin 3.1 GM/DL Calcium Level 8.7 MG/DL Magnesium Level 2.2 MG/DL Alkaline Phosphatase 62 U/L Aspartate Amino Transf (AST/SGOT) 25 U/L Alanine Aminotransferase (ALT/SGPT) 24 U/L Total Bilirubin 0.5 MG/DL Sodium Level 135 MEQ/L Potassium Level 2.8 MEQ/L Chloride Level 95 MEQ/L Carbon Dioxide Level 28.5 MEQ/L Anion Gap 12 MEQ/L Estimat Glomerular Filtration Rate 48 ML/MIN Lactic Acid Level 1.4 mmol/L Ammonia 14 MCMOL/L Total Creatine Kinase 39 U/L Troponin I 0.41 NG/ML B-Type Natriuretic Peptide 651 PG/ML MDM Supervised Visit with SARITA: Yes Narrative Course The history, exam, and medical decision-making in the associated mid-level provider note were completed with my assistance. I reviewed and agree with the findings presented. I attest that I had a [id number] encounter with the patient on the same day, and personally performed and documented my assessment and findings in the medical record. *My assessment and Findings: 86-year-old woman, recent diagnosis of sepsis with strap, on long-term IV antibiotics purely due to concern because of her artificial heart valve, implanted pacer wires, that she may have seeded them. Also recent diagnosis of CHF and aortic stenosis. Now here of 1 days worth of worsening pain, feeling sick with vomiting, with evidence of some volume overload. I think this is probably primarily CHF exacerbation possibly related to her bowel disease. She had unusual chronic pain history that they were extruding to possibly polymyositis or brachial plexitis although this seems a little bit unclear. Diagnosis Primary Impression: Generalized weakness Additional Impressions: CHF (congestive heart failure) Qualified Codes: I50.9 - Heart failure, unspecified Elevated troponin Hypokalemia Condition: Stable Gurdeep Lacey MD Jan 11, 2017 21:43
--- NOTE | 2017-01-11 22:18 | RADRPT ---
EXAM DATE/TIME: 01/11/2017 21:59 [place] COMPARISON: No previous studies available for comparison. INDICATIONS : Cephalgia with nausea and vomiting. RADIATION DOSE: 34.85 CTDIvol (mGy) MEDICAL HISTORY : Hypertension. SURGICAL HISTORY : Appendectomy. ENCOUNTER: Initial ACUITY: 1 day PAIN SCALE: 8/10 LOCATION: cranial TECHNIQUE: Multiple contiguous axial images were obtained of the head. Using automated exposure control and adj ustment of the mA and/or kV according to patient size, radiation dose was kept as low as reasonably a chievable to obtain optimal diagnostic quality images. DICOM format image data is available electro nically for review and comparison. FINDINGS: CEREBRUM: The ventricles are normal for age. There is mild hyperattenuation of the white matter in the frontal region, probably ischemic. No evidence of midline shift, mass lesion, hemorrhage or acute infarction . No extra-axial fluid collections are seen. POSTERIOR FOSSA: The cerebellum and brainstem are intact. The 4th ventricle is midline. The cerebellopontine angle i s unremarkable. EXTRACRANIAL: The visualized portion of the orbits is intact. SKULL: The calvaria is intact. No evidence of skull fracture. CONCLUSION: No acute findings in the brain. Jose Martinez MD on January 11, 2017 at 22:15 Board Certified Radiologist. This report was verified electronically.
[2017-01-11 22:45] VITALS: RESP 22; TEMP 98.5; O2SAT 98
[2017-01-11 23:19] VITALS: BP 146/66; PULSE 63; RESP 16; TEMP 98.4; O2SAT 99
[2017-01-12] VITALS (7 sets, daily range): BP systolic 104–134; BP diastolic 58–68; PULSE 64–80; RESP 18; TEMP 97.6–98.7; O2SAT 95–100
[2017-01-12] MEDS: POTASSIUM CHLOR 20 MEQ PREMIX 100 ML IV SCH (00:18)
[2017-01-12] MEDS ORDERED: VANCOMYCIN INJ 1,000 MG in SODIUM CHLOR 0.9% 250 ML INJ 250 ML IV ONE (03:00)
[2017-01-12] MEDS ORDERED: HEPARIN SODIUM - IV 10,000 UNITS/10 ML VIAL IV PUSH ONE (03:00)
[2017-01-12] MEDS ORDERED: HEPARIN-D5W 25,000 U/250 ML 250 ML IV PRN (03:00)
[2017-01-12 04:03] LABS: BASOPHIL # 0.1 TH/MM3 (0-0.2); BASOPHIL % 0.7 % (0.0-2.0); EOSINOPHIL % 0.3 % (0.0-4.0); HEMATOCRIT 33.6 % (35.0-46.0); HEMO FLAGS DIFF FINAL; LYMPH % 13.2 % (9.0-44.0); LYMPHOCYTE # 1.9 TH/MM3 (1.0-4.8); MEAN CORPUSCULAR HEMOGLOBIN 29.2 PG (27.0-34.0); MEAN CORPUSCULAR HGB CONC 32.8 % (32.0-36.0); MONO % 3.2 % (0.0-8.0); NEUT % 82.6 % (16.0-70.0); PLATELET COUNT 195 TH/MM3 (150-450); RED BLOOD COUNT 3.77 MIL/MM3 (4.00-5.30); RED CELL DISTRIBUTION WIDTH 15.7 % (11.6-17.2); WHITE BLOOD COUNT 14.5 TH/MM3 (4.0-11.0)
[2017-01-12 04:19] LABS: APTT (PATIENT) 26.1 SEC (24.3-30.1); PROTHROMBIN TIME - PATIENT 11.4 SEC (9.8-11.6)
[2017-01-12 04:43] LABS: ALKALINE PHOSPHATASE 62 U/L (45-117); ALT (GPT) 21 U/L (10-53); ANION GAP 8 MEQ/L (5-15); AST (GOT) 31 U/L (15-37); BICARBONATE 30.2 MEQ/L (21.0-32.0); BLOOD UREA NITROGEN 15 MG/DL (7-18); CHLORIDE 97 MEQ/L (98-107); FREE T4 1.35 NG/DL (0.76-1.46); GLOMERULAR FILTRATION RATE 60 ML/MIN (>89); POTASSIUM 4.1 MEQ/L (3.5-5.1); SODIUM (NA) 135 MEQ/L (136-145); TOTAL BILIRUBIN ADULT 0.3 MG/DL (0.2-1.0)
[2017-01-12] MEDS: LEVOTHYROXINE SODIUM 50 MCG TAB PO SCH (06:12)
[2017-01-12] MEDS: SODIUM CHLORIDE 0.9% FLUSH 10 ML FLUSH IV FLUSH SCH ×2 (08:03→20:33)
[2017-01-12] MEDS: predniSONE 5 MG TAB PO SCH (08:04)
[2017-01-12] MEDS: METOPROLOL TARTRATE 100 MG TAB PO SCH ×2 (08:05→20:32)
[2017-01-12] MEDS: PANTOPRAZOLE SOD 40 MG DELAYED RELEASE TAB PO SCH ×2 (08:05→20:32)
[2017-01-12] MEDS: FUROSEMIDE 20 MG TAB PO SCH (08:05)
[2017-01-12] MEDS: POTASSIUM CHLORIDE 10 MEQ CAP PO SCH (08:06)
[2017-01-12] MEDS ORDERED: predniSONE 10 MG TAB PO SCH (09:00)
[2017-01-12] MEDS ORDERED: HEPARIN SODIUM - IV 10,000 UNITS/10 ML VIAL IV PUSH PRN ×2 (09:00)
[2017-01-12] MEDS ORDERED: FUROSEMIDE 20 MG TAB PO SCH (09:00)
--- NOTE | 2017-01-12 13:40 | HHI.PR ---
Subjective Remarks Follow up weakness, leukocytosis, elevated troponin. Patient states that she feels much better. Denies chest pain, dyspnea. No nausea/vomiting. Objective Vitals Vital Signs Date Time Temp Pulse Resp B/P (MAP) Pulse Ox O2 Delivery O2 Flow Rate FiO2 01/12/17 12:00 97.6 64 18 134/59 (84) 96 01/12/17 08:01 68 01/12/17 08:00 98.7 73 18 104/68 (80) 97 01/12/17 08:00 97 Nasal Cannula 3.00 01/12/17 06:00 98.6 66 18 105/58 (74) 95 01/11/17 23:21 99 Nasal Cannula 3.00 01/11/17 23:19 98.4 63 16 146/66 (92) 99 01/11/17 22:45 01/11/17 22:45 98.5 22 98 Nasal Cannula 2.00 01/11/17 21:30 88 20 169/69 (102) 98 Nasal Cannula 2.00 01/11/17 20:39 96 16 161/70 (100) 99 Nasal Cannula 2.00 01/11/17 18:18 98.0 97 20 122/57 (78) 92 Nasal Cannula 2.00 01/11/17 18:12 120/77 (91) I/O 01/11/17 01/11/17 01/11/17 01/12/17 01/12/17 01/12/17 07:00 15:00 23:00 07:00 15:00 23:00 Intake Total 200 ml 250 ml Output Total 700 ml Balance -500 ml 250 ml Intake IV Total 200 ml 250 ml Output Urine Total 700 ml # Voids 1 Result Diagram: 01/12/17 0340 01/12/17 0340 Imaging Last Impressions Chest X-Ray 01/11/17 1824 Signed Impressions: Service Date/Time: Wednesday, January 11, 2017 18:30 - CONCLUSION: No acute disease. Kong Mitchell MD Head CT 01/11/17 0000 Signed Impressions: Service Date/Time: Wednesday, January 11, 2017 21:59 - CONCLUSION: No acute findings in the brain. Jose Martinez MD Objective Remarks General: Elderly female in no acute distress. Heart: Regular rate and rhythm. No murmur. Lungs: Clear to auscultation bilaterally. No wheezes, rales, or rhonchi. Breathing is nonlabored. Abdomen: Soft, nontender, nondistended. Extremities: No lower extremity edema. Psych: Alert and oriented. Procedures None Urinary Catheter: No Vascular Central Line Catheter: No A/P Problem List: (1) CHF (congestive heart failure) ICD Code: I50.9 - Heart failure, unspecified Status: Acute (2) Elevated troponin ICD Code: R74.8 - Abnormal levels of other serum enzymes Status: Acute (3) Hypokalemia ICD Code: E87.6 - Hypokalemia Status: Acute (4) Generalized weakness ICD Code: R53.1 - Weakness Status: Acute Assessment and Plan 1. Generalized weakness: ?secondary to adrenal insufficiency or recent sepsis. PT/OT. 2. Leukocytosis: Infectious disease consult pending. Continue IV antibiotics. Blood cultures are pending. Patient has history of viridans strep bacteremia. 3. Acute exacerbation of systolic congestive heart failure: BNP elevated. Patient has lower extremity edema. Continue Lasix. Appreciate cardiology recommendations. Patient had recent echocardiogram. 4. Hypokalemia: Improved following supplementation. 5. Elevated troponin: Likely non-ST elevation SD. Appreciate cardiology recommendations. Heparin drip. 6. Chronic brachial plexus pain: On prednisone taper. 7. Hypertension: Continue metoprolol. 8. DVT prophylaxis: SCDs, heparin drip. Problem Qualifiers (1) CHF (congestive heart failure): Qualified Codes: I50.9 - Heart failure, unspecified Yon Valencia MD Jan 12, 2017 13:40
--- NOTE | 2017-01-12 14:13 | MB ---
cc: DARLENE MARTINEZ M.D., HANSCY M.D. DATE OF CONSULTATION: 01/12/2017. REASON FOR CONSULTATION: Heart failure. HISTORY OF PRESENT ILLNESS: Mrs. Mead is an 86-year-old female with history of high blood pressure and congestive heart failure with last hospitalization in December indicated ejection fraction of around 35% to 40%, atrial fibrillation who was admitted through the emergency room due to weakness and nausea. She was in the bathroom unable to stand up, was feeling weak. She had some edema of the extremities and was transferred to the emergency room where she was admitted. Since hospitalization, her condition has significantly improved. I was consulted for evaluation and management. The chart was reviewed. The patient was evaluated. ALLERGIES: 1. IODINE. SOCIAL HISTORY: Negative for smoking and drinking. FAMILY HISTORY: Noncontributory to her current medical condition. MEDICATIONS: She is on: 1. Lasix. 2. Rosuvastatin. 3. Levoxyl. 4. Losartan. 5. Aspirin. 6. Metoprolol. During hospitalization, ceftriaxone was added as well as Vancomycin and Lasix IV. REVIEW OF SYSTEMS: Currently the patient refers no chest pain. No chest discomfort. No shortness of breath. No fever. PHYSICAL EXAMINATION: GENERAL: Alert, fully oriented. VITAL SIGNS: Her blood pressure is 134/59, pulse 64, respiratory rate 18. LUNGS: Ventilated. CARDIOVASCULAR: S1-S2. Regular. No gallop. ABDOMEN: Abdomen soft, no mass. No bruits. EXTREMITIES: No edema. EKGS: Electrocardiogram shows AV sequential pacing. LABS: Hemoglobin 11, white blood cells 14.5. Potassium 4.1, creatinine is 0.9. Troponin 1.06 coming down. INR 1.0. ASSESSMENT AND RECOMMENDATIONS: Ms. Stovall currently is stable. The BNP is only 600. There is no edema. She received Lasix IV one dose and is on Lasix p.o. Her medications were reinitiated. Her troponin currently is increased but it is coming down. She is V-pacing. Electrocardiographic changes cannot be evaluated. She has no chest pain and no chest discomfort. RECOMMENDATIONS: At this point, my recommendation is: 1. Continue with management. 2. I will repeat the troponin again. 3. The patient was previously seen by Dr. Martinez. I will refer her back to him for further evaluation. 4. For now, my recommendation is medical management. Further decision by Dr. Martinez. MD CARMEN Ashton/LEATHA /12:59 PM /2:05 PM
[2017-01-12 16:26] LABS: APTT (PATIENT) 113.9 SEC (24.3-30.1)
--- NOTE | 2017-01-12 17:44 | RADRPT ---
EXAM DATE/TIME: 01/12/2017 17:12 [place] COMPARISON: CT BRAIN W/O CONTRAST, January 11, 2017, 21:59. INDICATIONS : Dizzy RADIATION DOSE: 56.35 CTDIvol (mGy) MEDICAL HISTORY : Cardiovascular disease. Hypertension. SURGICAL HISTORY : Appendectomy. ENCOUNTER: Initial ACUITY: 1 day PAIN SCALE: 0/10 LOCATION: cranial TECHNIQUE: Multiple contiguous axial images were obtained of the head. Using automated exposure control and adj ustment of the mA and/or kV according to patient size, radiation dose was kept as low as reasonably a chievable to obtain optimal diagnostic quality images. DICOM format image data is available electro nically for review and comparison. FINDINGS: CEREBRUM: The ventricles are normal for age. There is mild hypoattenuation of the white matter in the frontal region, probably ischemic. Physiologic calcification in the basal ganglia. No evidence of midline s hift, mass lesion, hemorrhage or acute infarction. No extra-axial fluid collections are seen. POSTERIOR FOSSA: The cerebellum and brainstem are intact. Hypodensity in the right parasagittal levon, possibly repres enting old infarct, unchanged from yesterday's CT. The 4th ventricle is midline. The cerebelloponti ne angle is unremarkable. EXTRACRANIAL: The visualized portion of the orbits is intact. SKULL: The calvaria is intact. No evidence of skull fracture. CONCLUSION: No acute findings in the brain. May consider MRI of the brain with and without contrast if clinicall y indicated. Jose Martinez MD on January 12, 2017 at 17:33 Board Certified Radiologist. This report was verified electronically.
[2017-01-12] MEDS: ATORVASTATIN 20 MG TAB PO SCH (20:33)
[2017-01-12] MEDS: cefTRIAXone INJ 2,000 MG in SODIUM CHLORIDE 0.9% INJ 100 ML IV SCH (20:33)
--- NOTE | 2017-01-12 20:40 | EKG ---
Date Performed: 01/12/2017 Time Performed: 04:37:18 PTAGE: 86 years EKG: Sinus rhythm Left axis deviation Left bundle branch block Possible lateral infarct - age undetermined Abnormal EC G NO PREVIOUS TRACING DOCTOR: Gordon Kong Interpretating Date/Time 01/12/2017 20:38:33
--- NOTE | 2017-01-12 20:49 | EKG ---
Date Performed: 01/11/2017 Time Performed: 18:19:09 PTAGE: 86 years EKG: Sinus rhythm MARKED LEFT AXIS DEVIATION INTRAVENTRICULAR CONDUCTION DELAY ABNORMAL ECG NO PREVIOUS TRACING DOCTOR: Gordon Kong Interpretating Date/Time 01/12/2017 20:44:28
[2017-01-13] VITALS (9 sets, daily range): BP systolic 91–168; BP diastolic 55–85; PULSE 62–75; RESP 16–20; TEMP 97.9–98.7; O2SAT 93–100
[2017-01-13] MEDS: SODIUM CHLOR 0.9% 1000 ML INJ 1,000 ML IV SCH ×2 (00:33→11:49)
[2017-01-13] MEDS: LEVOTHYROXINE SODIUM 50 MCG TAB PO SCH (06:03)
[2017-01-13] MEDS ORDERED: HEPARIN-D5W 25,000 U/250 ML 250 ML IV PRN (07:30)
[2017-01-13 07:42] LABS: APTT (PATIENT) 44.8 SEC (24.3-30.1)
[2017-01-13] MEDS: PANTOPRAZOLE SOD 40 MG DELAYED RELEASE TAB PO SCH ×2 (08:09→20:41)
[2017-01-13] MEDS: SODIUM CHLORIDE 0.9% FLUSH 10 ML FLUSH IV FLUSH SCH ×2 (08:09→20:40)
[2017-01-13] MEDS: FUROSEMIDE 20 MG TAB PO SCH (08:10)
[2017-01-13] MEDS: POTASSIUM CHLORIDE 10 MEQ CAP PO SCH (08:10)
[2017-01-13] MEDS: predniSONE 5 MG TAB PO SCH (08:11)
[2017-01-13] MEDS: METOPROLOL TARTRATE 100 MG TAB PO SCH ×2 (08:11→20:42)
[2017-01-13 09:01] LABS: AUTOMATED NEUTROPHIL # 9.6 TH/MM3 (1.8-7.7); BASOPHIL # 0.1 TH/MM3 (0-0.2); BASOPHIL % 0.6 % (0.0-2.0); EOSINOPHIL # 0.3 TH/MM3 (0-0.4); EOSINOPHIL % 2.1 % (0.0-4.0); HEMO FLAGS DIFF FINAL; LYMPH % 16.4 % (9.0-44.0); LYMPHOCYTE # 2.1 TH/MM3 (1.0-4.8); MEAN CELL VOLUME 89.7 FL (80.0-100.0); MEAN CORPUSCULAR HEMOGLOBIN 29.1 PG (27.0-34.0); MEAN CORPUSCULAR HGB CONC 32.4 % (32.0-36.0); NEUT % 74.9 % (16.0-70.0); PLATELET COUNT 181 TH/MM3 (150-450); RED BLOOD COUNT 3.24 MIL/MM3 (4.00-5.30); WHITE BLOOD COUNT 12.8 TH/MM3 (4.0-11.0)
--- NOTE | 2017-01-13 10:24 | PD.CONS ---
History of Present Illness Service Infectious disease Consult Requested By Dr Drew Dove Reason for Consult Evaluate patient for possible endovascular strep infection Primary Care Physician Ramona Munoz MD Diagnoses: History of Present Illness Patient seen and examined. Records reviewed. Patient is an 86-year-old female, known to me from her last hospitalization, admitted to the hospital for further evaluation of significant weakness, neck pain and headache, and an episode of vomiting. During her last admission she was worked up for bilateral upper and lower extremity pain. Prior to that admission she was hospitalized up [place] and initially she had upper extremity and shoulder pain. She was diagnosed to have brachial plexitis, and she was treated with steroids. [facility] went [facility], and her daughter took her to [place] and has been staying with her when she developed recurrent upper extremity pain, and this time she started having pain in both lower extremities. She was unable to do any ambulation, and the daughter was not able to take care of her. She was brought into the hospital, and workup at that time did not show any neurological explanation for all her symptoms. She was found to have strep viridans bacteremia, and her echo did not show any vegetation. ALPHONSO was not pursued, since treatment most likely will not be changed, and she is not a good surgical candidate. Patient has had mitral valve replacement as well as a pacemaker. Her follow-up blood cultures during that admission all came back negative. She was discharged on IV Rocephin, with plans to complete treatment on February 05. Patient's pain in her extremities improved with prednisone 20 mg daily. She was discharged on , and saw her primary care physician, who started tapering her prednisone by 2.5 mg on a weekly basis. She went down to 17.5 on December 31, and then 15 mg starting January 05. She was actually doing quite well, and has not had any pain and ambulating. There is been no fever or chills. She denies any respiratory complaint. There's been no diarrhea or any abdominal pain. Since admission here, her chest x-ray was normal. CT of the head was unremarkable. She is afebrile. She has some mild elevation of her LFTs. Her sedimentation rate was down to 18 and it was 56 during her last admission. Her blood cultures have been negative. Currently patient states that her neck pain and headache have all resolved. Infectious disease consultation has been requested to evaluate the patient. Review of Systems Constitutional: COMPLAINS OF: Fatigue, DENIES: Fever, Chills, Night Sweats Eyes: DENIES: Eye pain Ears, nose, mouth, throat: DENIES: Nasal discharge, Oral lesions, Throat pain, Ear Pain, Running Nose, Sinus Pain Respiratory: DENIES: Cough, Sputum production, Shortness of breath Cardiovascular: COMPLAINS OF: Lower Extremity Edema, DENIES: Chest pain, Palpitations Gastrointestinal: COMPLAINS OF: Nausea, Vomiting, DENIES: Abdominal pain, Constipation, Diarrhea, Difficulty Swallowing, Anorexia Genitourinary: DENIES: Urgency, Dysuria Musculoskeletal: COMPLAINS OF: Neck pain, DENIES: Joint pain Integumentary: COMPLAINS OF: Rash Neurologic: COMPLAINS OF: Headache, DENIES: Localized weakness Psychiatric: DENIES: Hallucinations Past Family Social History Allergies: Coded Allergies: Iodinated Contrast- Oral and IV Dye (Verified Allergy, Severe, EYES SWELLING, 01/11/17) iodine (Verified Allergy, Severe, EYES SWELLING, 01/11/17) potassium iodide (Verified Allergy, Severe, EYES SWELLING, 01/11/17) povidone-iodine (Verified Allergy, Severe, EYES SWELLING, 01/11/17) sodium iodide (Verified Allergy, Severe, EYES SWELLING, 01/11/17) sodium iodide (Verified Allergy, Severe, EYES SWELLING, 01/11/17) Uncoded Allergies: IVP DYE (Allergy, Unknown, EYES SWELLING, 05/17/08) Past Medical History Hypothyroidism Hypertension Hyperlipidemia CAD A. fib Brachial plexitis Past Surgical History Permanent pacemaker Status post mitral valve replacement, with porcine valve Appendectomy Hysterectomy 2 shoulder replacement Right knee replacement Reported Medications I attest that I obtained, updated or reviewed the home and current medications. Reported Meds & Active Scripts Active Potassium Chloride ER (Potassium Chloride) 10 Meq Cap 20 Meq PO DAILY Furosemide 20 Mg Tab 20 Mg PO DAILY 30 Days Rosuvastatin (Rosuvastatin Calcium) 10 Mg Tab 10 Mg PO HS 30 Days Levothyroxine (Levothyroxine Sodium) 50 Mcg Tab 50 Mcg PO DAILY 30 Days Losartan (Losartan Potassium) 50 Mg Tab 50 Mg PO DAILY 30 Days Aspirin 325 Mg Tab 325 Mg PO DAILY Metoprolol Tartrate 100 Mg Tab 100 Mg PO BID 30 Days Reported Prednisone 10 Mg Tab 15 Mg PO DAILY Tylenol (Acetaminophen) 325 Mg Tab 325 Mg PO DAILY Fish Oil 1000 mg ([place]-3 Fatty Acids) 300 Mg-1,000 Mg Cap 1,000 Mg PO DAILY Ceftriaxone Inj (Ceftriaxone Sodium/Dextrose) 2 Gm/50 Ml Bagp 2 Gm IV Q24H Protonix (Pantoprazole Sodium) 40 Mg Tab 40 Mg PO BID Amitriptyline (Amitriptyline HCl) 10 Mg Tab 20 Mg PO HS Vitamin D-1000 (Cholecalciferol) 1,000 Unit Tab 1,000 Units PO DAILY Active Ordered Medications I attest that I obtained, updated or reviewed the home and current medications. Current Medications Medications (Trade) Dose Ordered Sig/Yuly Route Start Time Stop Time Status Last Admin (NS Flush) 2 ml UNSCH PRN IV FLUSH 01/11/17 20:30 (NS Flush) 2 ml BID IV FLUSH 01/11/17 21:00 01/13/17 08:09 (Zofran Inj) 4 mg Q6H PRN IVP 01/11/17 20:30 (Narcan Inj) 0.4 mg UNSCH PRN IV PUSH 01/11/17 20:30 (Milk Of Magnesia Liq) 30 ml Q12H PRN PO 01/11/17 20:30 (Senokot) 17.2 mg Q12H PRN PO 01/11/17 20:30 (Dulcolax Supp) 10 mg DAILY PRN RECTAL 01/11/17 20:30 (Lactulose Liq) 30 ml DAILY PRN PO 01/11/17 20:30 Ceftriaxone Sodium 2000 mg/ Sodium Chloride 100 ml @ 200 mls/hr Q24H IV 01/11/17 21:00 01/12/17 20:33 (Synthroid) 50 mcg DAILY@0700 PO 01/12/17 07:00 01/13/17 06:03 (Lopressor) 100 mg BID PO 01/11/17 21:30 01/13/17 08:11 (Protonix) 40 mg BID PO 01/12/17 09:00 01/13/17 08:09 (KCl) 20 meq DAILY PO 01/12/17 09:00 01/13/17 08:10 (Lipitor) 20 mg HS PO 01/12/17 21:00 01/12/17 20:33 ([place] 5-325 Mg) 1 tab Q4H PRN PO 01/11/17 21:30 ([place] 7.5-325 Mg) 1 tab Q4H PRN PO 01/11/17 21:30 01/11/17 23:23 (Narcan Inj) 0.4 mg UNSCH PRN IV PUSH 01/11/17 21:30 (Lasix) 40 mg DAILY PO 01/12/17 09:00 01/13/17 08:10 (Deltasone) 12.5 mg DAILY PO 01/12/17 09:00 01/13/17 08:11 (Heparin Inj) 5,000 units UNSCH PRN IV PUSH 01/12/17 09:00 (Heparin Inj) 2,500 units UNSCH PRN IV PUSH 01/12/17 09:00 Heparin Sodium/ Dextrose 250 ml @ 9 mls/hr TITRATE PRN IV 01/13/17 07:30 Family History Father had a stroke Mother had Alzheimer's disease Social History Lives with the daughter No smoking Denies alcohol Denies illicit drugs Physical Exam Vital Signs Vital Signs Date Time Temp Pulse Resp B/P (MAP) Pulse Ox O2 Delivery O2 Flow Rate FiO2 01/13/17 09:17 63 01/13/17 09:13 97.9 67 16 168/70 (102) 100 01/13/17 09:13 100 Nasal Cannula 3.00 01/13/17 06:20 97.9 63 18 129/85 (100) 100 01/13/17 01:08 97.9 63 18 91/55 (67) 100 01/12/17 21:28 98.1 80 18 134/62 (86) 100 01/12/17 20:01 Nasal Cannula 3.00 01/12/17 20:00 70 01/12/17 16:00 98.2 72 18 126/62 (83) 96 01/12/17 12:00 97.6 64 18 134/59 (84) 96 Physical Exam GENERAL: Patient is an obese, well-developed CF, awake and alert, not in respiratory distress. SKIN: Warm and dry. Has purpuric rash in both UE and both legs, no embolic lesions seen in hands or feet HEAD: Atraumatic. Normocephalic. No temporal wasting, or tenderness. EYES: [place] conjunctiva. No petechia or hemorrhage. Pupils equal, round and reactive to light. Extraocular movements full and intact. No scleral icterus. No injection or drainage. EARS, NOSE AND THROAT: Nose without bleeding or purulent nasal discharge. No sinus tenderness. Mucous membranes pink and moist. No oral lesions noted. No exudate. No oral thrush. She wears upper dentures and partial lower NECK: Trachea midline. Supple and not tender, no meningeal signs CARDIOVASCULAR: Regular rate and rhythm. Has murmur systolic at base of the heart. No rub. Sternotomy scar C/W surgical history. Pacer in her left upper chest with no evidence of infection RESPIRATORY: Clear to auscultation. Breath sounds equal bilaterally. No rales , wheezing or rhonchi. Decreased at the bases ABDOMEN: Soft, slightly round, non-tender, nondistended. Bowel sounds present and normoactive. No guarding. No rebound. No organomegaly. EXTREMITIES: No clubbing, cyanosis. Minimal edema both feet. Notable for the purpuric rash in forearms and legs. No joint effusion, has good ROM. No calf tenderness. Well perfused and warm. NEUROLOGICAL: Awake and alert. Cranial nerves grossly intact. Motor grossly within normal limits. PSYCHIATRIC: Normal affect, calm and cooperative. LINE: No evidence of infection Laboratory Laboratory Tests Test 01/12/17 15:13 01/12/17 17:11 01/13/17 00:10 01/13/17 06:00 Activated Partial Thromboplast Time 113.9 83.0 61.0 44.8 Test 01/13/17 08:40 White Blood Count 12.8 Red Blood Count 3.24 Hemoglobin 9.4 Hematocrit 29.0 Mean Corpuscular Volume 89.7 Mean Corpuscular Hemoglobin 29.1 Mean Corpuscular Hemoglobin Concent 32.4 Red Cell Distribution Width 16.0 Platelet Count 181 Mean Platelet Volume 7.4 Neutrophils (%) (Auto) 74.9 Lymphocytes (%) (Auto) 16.4 Monocytes (%) (Auto) 6.0 Eosinophils (%) (Auto) 2.1 Basophils (%) (Auto) 0.6 Neutrophils # (Auto) 9.6 Lymphocytes # (Auto) 2.1 Monocytes # (Auto) 0.8 Eosinophils # (Auto) 0.3 Basophils # (Auto) 0.1 CBC Comment DIFF FINAL Differential Comment Date/Time Source Procedure Growth Status 01/11/17 21:35 Blood Peripheral Aerobic Blood Culture - Preliminary NO GROWTH IN 1 DAY Resulted 01/11/17 21:35 Blood Peripheral Anaerobic Blood Culture - Preliminary NO GROWTH IN 1 DAY Resulted 01/12/17 19:05 Stool Stool Stool Occult Blood (KALANI) - Final HEMOCCULT POSITIVE Complete Result Diagram: 01/13/17 0840 01/12/17 0340 Imaging RADIOLOGY STUDIES/FILMS REVIEWED Head CT 01/12/17 0000 Signed Impressions: Service Date/Time: Thursday, January 12, 2017 17:12 - CONCLUSION: No acute findings in the brain. May consider MRI of the brain with and without contrast if clinically indicated. Jose Martinez MD Chest X-Ray 01/11/17 1824 Signed Impressions: Service Date/Time: Wednesday, January 11, 2017 18:30 - CONCLUSION: No acute disease. Kong Mitchell MD Assessment and Plan Assessment and Plan IMPRESSION MARQUEZ, neck pain and weakness, etiology? Resolved Episode of Strep viridans bacteremia, being treated for endovascular infection , she is S/P MVR and has pacer Fibromyalgia, pain under control, on steroids, being tapered Hx atrial fib, has been in NSR RECOMMENDATION Continue Rocephin - her infection seem to be under control - plan to complete Rrx Feb 05 - she has appointment with Dr Mally Selby, and will decide on course of Rx: stop, or chronic suppression I will follow cultures and see if there is any need to change her treatment plan Monitor progress I will follow along with you Thank you for this consultation Discussed Condition With Explained plan to patient Shiela Romo MD Jan 13, 2017 10:24
--- NOTE | 2017-01-13 10:57 | PD.CARD.PN ---
Subjective Subjective Remarks Head and neck pain resolved (I think this is her angina) Objective Medications Current Medications Medications (Trade) Dose Ordered Sig/Yuly Route Start Time Stop Time Status Last Admin (NS Flush) 2 ml UNSCH PRN IV FLUSH 01/11/17 20:30 (NS Flush) 2 ml BID IV FLUSH 01/11/17 21:00 01/13/17 08:09 (Zofran Inj) 4 mg Q6H PRN IVP 01/11/17 20:30 (Narcan Inj) 0.4 mg UNSCH PRN IV PUSH 01/11/17 20:30 (Milk Of Magnesia Liq) 30 ml Q12H PRN PO 01/11/17 20:30 (Senokot) 17.2 mg Q12H PRN PO 01/11/17 20:30 (Dulcolax Supp) 10 mg DAILY PRN RECTAL 01/11/17 20:30 (Lactulose Liq) 30 ml DAILY PRN PO 01/11/17 20:30 Ceftriaxone Sodium 2000 mg/ Sodium Chloride 100 ml @ 200 mls/hr Q24H IV 01/11/17 21:00 01/12/17 20:33 (Synthroid) 50 mcg DAILY@0700 PO 01/12/17 07:00 01/13/17 06:03 (Lopressor) 100 mg BID PO 01/11/17 21:30 01/13/17 08:11 (Protonix) 40 mg BID PO 01/12/17 09:00 01/13/17 08:09 (KCl) 20 meq DAILY PO 01/12/17 09:00 01/13/17 08:10 (Lipitor) 20 mg HS PO 01/12/17 21:00 01/12/17 20:33 ([place] 5-325 Mg) 1 tab Q4H PRN PO 01/11/17 21:30 ([place] 7.5-325 Mg) 1 tab Q4H PRN PO 01/11/17 21:30 01/11/17 23:23 (Narcan Inj) 0.4 mg UNSCH PRN IV PUSH 01/11/17 21:30 (Lasix) 40 mg DAILY PO 01/12/17 09:00 01/13/17 08:10 (Heparin Inj) 5,000 units UNSCH PRN IV PUSH 01/12/17 09:00 (Heparin Inj) 2,500 units UNSCH PRN IV PUSH 01/12/17 09:00 Heparin Sodium/ Dextrose 250 ml @ 9 mls/hr TITRATE PRN IV 01/13/17 07:30 (Cozaar) 50 mg DAILY PO 01/13/17 11:00 UNV (Deltasone) 40 mg BID PO 01/13/17 21:00 UNV (Pepcid) 20 mg BID PO 01/13/17 11:00 UNV (Benadryl) 25 mg HS PO 01/13/17 21:00 UNV Vital Signs / I&O Vital Signs Date Time Temp Pulse Resp B/P (MAP) Pulse Ox O2 Delivery O2 Flow Rate FiO2 01/13/17 09:17 63 01/13/17 09:13 97.9 67 16 168/70 (102) 100 01/13/17 09:13 100 Nasal Cannula 3.00 01/13/17 06:20 97.9 63 18 129/85 (100) 100 01/13/17 01:08 97.9 63 18 91/55 (67) 100 01/12/17 21:28 98.1 80 18 134/62 (86) 100 01/12/17 20:01 Nasal Cannula 3.00 01/12/17 20:00 70 01/12/17 16:00 98.2 72 18 126/62 (83) 96 01/12/17 12:00 97.6 64 18 134/59 (84) 96 I/O 01/12/17 01/12/17 01/12/17 01/13/17 01/13/17 01/13/17 07:00 15:00 23:00 07:00 15:00 23:00 Intake Total 200 ml 730 ml 160.5 ml Output Total 700 ml Balance -500 ml 730 ml 160.5 ml Intake Oral 480 ml IV Total 200 ml 250 ml 160.5 ml Output Urine Total 700 ml # Voids 2 1 1 # Bowel Movements 1 1 Physical Exam Alert Chest: velcro rales at bases CV S1S2 RRR, 2/6 FREDRICK Abd: soft Ext: strong LE pulses, edema only trace (worse before) Laboratory Laboratory Tests Test 01/12/17 15:13 01/12/17 17:11 01/13/17 00:10 01/13/17 06:00 Activated Partial Thromboplast Time 113.9 SEC 83.0 SEC 61.0 SEC 44.8 SEC Test 01/13/17 08:40 White Blood Count 12.8 TH/MM3 Red Blood Count 3.24 MIL/MM3 Hemoglobin 9.4 GM/DL Hematocrit 29.0 % Mean Corpuscular Volume 89.7 FL Mean Corpuscular Hemoglobin 29.1 PG Mean Corpuscular Hemoglobin Concent 32.4 % Red Cell Distribution Width 16.0 % Platelet Count 181 TH/MM3 Mean Platelet Volume 7.4 FL Neutrophils (%) (Auto) 74.9 % Lymphocytes (%) (Auto) 16.4 % Monocytes (%) (Auto) 6.0 % Eosinophils (%) (Auto) 2.1 % Basophils (%) (Auto) 0.6 % Neutrophils # (Auto) 9.6 TH/MM3 Lymphocytes # (Auto) 2.1 TH/MM3 Monocytes # (Auto) 0.8 TH/MM3 Eosinophils # (Auto) 0.3 TH/MM3 Basophils # (Auto) 0.1 TH/MM3 CBC Comment DIFF FINAL Differential Comment Imaging Last [address] 01/12/17 0000 Signed Impressions: Service Date/Time: Thursday, January 12, 2017 17:12 - CONCLUSION: No acute findings in the brain. May consider MRI of the brain with and without contrast if clinically indicated. Jose Martinez MD Chest X-Ray 01/11/17 1824 Signed Impressions: Service Date/Time: Wednesday, January 11, 2017 18:30 - CONCLUSION: No acute disease. Kong Mitchell MD Assessment and Plan Problem List: (1) Cardiomyopathy ICD Codes: I42.9 - Cardiomyopathy, unspecified Plan: I don't think this is acute CHF (2) Non-STEMI (non-ST elevated myocardial infarction) ICD Codes: I21.4 - Non-ST elevation (NSTEMI) myocardial infarction Plan: Plan cardiac cath in AM (3) History of mitral valve replacement with bioprosthetic valve ICD Codes: Z95.3 - Presence of xenogenic heart valve Assessment and Plan Prenedicate for contrast allergy Damián Martinez MD Jan 13, 2017 10:57
[2017-01-13] MEDS ORDERED: DIAZEPAM 5 MG TAB PO SCH (11:00)
[2017-01-13] MEDS ORDERED: ASPIRIN 325 MG TAB PO SCH (11:00)
[2017-01-13] MEDS ORDERED: diphenhydrAMINE HCL 50 MG CAP PO SCH (11:00)
[2017-01-13] MEDS ORDERED: PILL SPLITTER OTHER PRN (11:15)
[2017-01-13] MEDS ORDERED: FAMOTIDINE 20 MG TAB PO SCH (12:00)
[2017-01-13] MEDS ORDERED: LOSARTAN 50 MG TAB PO SCH (12:00)
[2017-01-13] MEDS: PANTOPRAZOLE SODIUM 40 MG VIAL IV PUSH SCH (13:00)
[2017-01-13 13:20] LABS: HEMATOCRIT 29.1 % (35.0-46.0); REVIEW FLAG FINAL
--- NOTE | 2017-01-13 14:36 | HHI.PR ---
Subjective Remarks Follow up elevated troponin, GI bleed. Patient states that she is feeling better today. Denies chest pain, dyspnea. Objective Vitals Vital Signs Date Time Temp Pulse Resp B/P (MAP) Pulse Ox O2 Delivery O2 Flow Rate FiO2 01/13/17 12:34 98.7 62 16 116/58 (77) 94 01/13/17 09:17 63 01/13/17 09:13 97.9 67 16 168/70 (102) 100 01/13/17 09:13 100 Nasal Cannula 3.00 01/13/17 06:20 97.9 63 18 129/85 (100) 100 01/13/17 01:08 97.9 63 18 91/55 (67) 100 01/12/17 21:28 98.1 80 18 134/62 (86) 100 01/12/17 20:01 Nasal Cannula 3.00 01/12/17 20:00 70 01/12/17 16:00 98.2 72 18 126/62 (83) 96 I/O 01/12/17 01/12/17 01/12/17 01/13/17 01/13/17 01/13/17 07:00 15:00 23:00 07:00 15:00 23:00 Intake Total 200 ml 730 ml 160.5 ml Output Total 700 ml Balance -500 ml 730 ml 160.5 ml Intake Oral 480 ml IV Total 200 ml 250 ml 160.5 ml Output Urine Total 700 ml # Voids 2 1 1 1 # Bowel Movements 1 1 1 Result Diagram: 01/13/17 1300 01/12/17 0340 Imaging Last Impressions Head CT 01/12/17 0000 Signed Impressions: Service Date/Time: Thursday, January 12, 2017 17:12 - CONCLUSION: No acute findings in the brain. May consider MRI of the brain with and without contrast if clinically indicated. Jose Martinez MD Chest X-Ray 01/11/17 1824 Signed Impressions: Service Date/Time: Wednesday, January 11, 2017 18:30 - CONCLUSION: No acute disease. Kong Mitchell MD Objective Remarks General: Elderly female in no acute distress. Heart: Regular rate and rhythm. No murmur. Lungs: Clear to auscultation bilaterally. No wheezes, rales, or rhonchi. Breathing is nonlabored. Abdomen: Soft, nontender, nondistended. Extremities: No lower extremity edema. SCDs. Psych: Alert and oriented. Skin: Ecchymosis on extremities. Procedures None Urinary Catheter: No Vascular Central Line Catheter: No A/P Problem List: (1) CHF (congestive heart failure) ICD Code: I50.9 - Heart failure, unspecified Status: Acute (2) Elevated troponin ICD Code: R74.8 - Abnormal levels of other serum enzymes Status: Acute (3) Hypokalemia ICD Code: E87.6 - Hypokalemia Status: Acute (4) Generalized weakness ICD Code: R53.1 - Weakness Status: Acute Assessment and Plan 1. Generalized weakness: ?secondary to adrenal insufficiency or recent sepsis. PT/OT. 2. Leukocytosis: Appreciate infectious disease recommendations. Continue IV antibiotics. Blood cultures are negative so far. Patient has history of viridans strep bacteremia. 3. Chronic systolic congestive heart failure: BNP mildly elevated. Continue Lasix. Appreciate cardiology recommendations. Patient had recent echocardiogram. 4. Hypokalemia: Improved following supplementation. 5. Elevated troponin: Likely non-ST elevation NC. Appreciate cardiology recommendations. Heparin drip. 6. Chronic brachial plexus pain: On prednisone taper. 7. Hypertension: Continue metoprolol. 8. DVT prophylaxis: SCDs, heparin drip. 9. GI bleed: Heme positive stools. On heparin drip. H&H remain stable. Monitor H &H every 6 hours. Transfuse if necessary. Consult is pending. Problem Qualifiers (1) CHF (congestive heart failure): Qualified Codes: I50.9 - Heart failure, unspecified Yon Valencia MD Jan 13, 2017 14:36
--- NOTE | 2017-01-13 16:45 | PD.CONS ---
HPI History of Present Illness This is a 86 year old female with CHF, HTN who per EMR presented with weakness, nausea. She is unable to tell me what made her come to hospital other than "a senior moment." She was found to have NSTEMI and is having cardiac cath procedure tomorrow. She was recently discharged with urosepsis. GI has been consulted for anemia and heme pos stool. She denies visible blood in stool, tarry stool, abd pain, chagne in bowel habits, diarrhea, constipation, nausea or vomiting. She had colonoscopy 1 year ago in [facility] and was normal. She thinks she has had an EGD but does not know when. She says she has been told before she has blood in her stool but has no hx GIB. Does not take blood thinners at home but is currently on heparin. (Lashanda Dowling) PFSH Past Medical History Hypothyroidism HTN HLD A. fib Past Surgical History Permanent pacemaker Status post mitral valve repair in 2014 Appendectomy Hysterectomy 2 shoulder surgery Right knee replacement (Lashanda Dowling) Coded Allergies: Iodinated Contrast- Oral and IV Dye (Verified Allergy, Severe, EYES SWELLING, 01/11/17) iodine (Verified Allergy, Severe, EYES SWELLING, 01/11/17) potassium iodide (Verified Allergy, Severe, EYES SWELLING, 01/11/17) povidone-iodine (Verified Allergy, Severe, EYES SWELLING, 01/11/17) sodium iodide (Verified Allergy, Severe, EYES SWELLING, 01/11/17) sodium iodide (Verified Allergy, Severe, EYES SWELLING, 01/11/17) Uncoded Allergies: IVP DYE (Allergy, Unknown, EYES SWELLING, 05/17/08) Family History Father had a stroke Mother had Alzheimer's disease throat ca grandfather Social History Denies alcohol use Denies tobacco use. Denies illicit drug use (Lashanda Dowling) Review of Systems Constitutional: COMPLAINS OF: Fatigue Eyes: DENIES: Blurred vision Ears, nose, mouth, throat: DENIES: Hearing loss Respiratory: DENIES: Hemoptysis Cardiovascular: DENIES: Chest pain Gastrointestinal: DENIES: Abdominal pain, Black stools, Bloody stools, Constipation, Diarrhea, Nausea, Vomiting Genitourinary: DENIES: Hematuria Musculoskeletal: DENIES: Joint Swelling Hematologic/lymphatic: DENIES: Bruising Neurologic: DENIES: Abnormal gait Psychiatric: DENIES: Anxiety (Lashanda Dowling) GI Exam Vitals I&O Vital Signs Date Time Temp Pulse Resp B/P (MAP) Pulse Ox O2 Delivery O2 Flow Rate FiO2 01/13/17 12:34 98.7 62 16 116/58 (77) 94 01/13/17 09:17 63 01/13/17 09:13 97.9 67 16 168/70 (102) 100 01/13/17 09:13 100 Nasal Cannula 3.00 01/13/17 06:20 97.9 63 18 129/85 (100) 100 01/13/17 01:08 97.9 63 18 91/55 (67) 100 01/12/17 21:28 98.1 80 18 134/62 (86) 100 01/12/17 20:01 Nasal Cannula 3.00 01/12/17 20:00 70 I/O 01/12/17 01/12/17 01/12/17 01/13/17 01/13/17 01/13/17 07:00 15:00 23:00 07:00 15:00 23:00 Intake Total 200 ml 730 ml 160.5 ml 240 ml Output Total 700 ml Balance -500 ml 730 ml 160.5 ml 240 ml Intake Oral 480 ml 240 ml IV Total 200 ml 250 ml 160.5 ml Output Urine Total 700 ml # Voids 2 1 1 1 2 # Bowel Movements 1 1 1 1 Imaging Last Impressions Head CT 01/12/17 0000 Signed Impressions: Service Date/Time: Thursday, January 12, 2017 17:12 - CONCLUSION: No acute findings in the brain. May consider MRI of the brain with and without contrast if clinically indicated. Jose Martinez MD Chest X-Ray 01/11/17 1824 Signed Impressions: Service Date/Time: Wednesday, January 11, 2017 18:30 - CONCLUSION: No acute disease. Kong Mitchell MD Laboratory Test 01/12/17 17:11 01/13/17 00:10 01/13/17 06:00 01/13/17 08:40 Activated Partial Thromboplast Time 83.0 SEC 61.0 SEC 44.8 SEC White Blood Count 12.8 TH/MM3 Red Blood Count 3.24 MIL/MM3 Hemoglobin 9.4 GM/DL Hematocrit 29.0 % Mean Corpuscular Volume 89.7 FL Mean Corpuscular Hemoglobin 29.1 PG Mean Corpuscular Hemoglobin Concent 32.4 % Red Cell Distribution Width 16.0 % Platelet Count 181 TH/MM3 Mean Platelet Volume 7.4 FL Neutrophils (%) (Auto) 74.9 % Lymphocytes (%) (Auto) 16.4 % Monocytes (%) (Auto) 6.0 % Eosinophils (%) (Auto) 2.1 % Basophils (%) (Auto) 0.6 % Neutrophils # (Auto) 9.6 TH/MM3 Lymphocytes # (Auto) 2.1 TH/MM3 Monocytes # (Auto) 0.8 TH/MM3 Eosinophils # (Auto) 0.3 TH/MM3 Basophils # (Auto) 0.1 TH/MM3 CBC Comment DIFF FINAL Differential Comment Test 01/13/17 13:00 Hemoglobin 9.5 GM/DL Hematocrit 29.1 % Date/Time Source Procedure Growth Status 01/11/17 21:35 Blood Peripheral Aerobic Blood Culture - Preliminary NO GROWTH IN 2 DAYS Resulted 01/11/17 21:35 Blood Peripheral Anaerobic Blood Culture - Preliminary NO GROWTH IN 2 DAYS Resulted 01/12/17 19:05 Stool Stool Stool Occult Blood (KALANI) - Final HEMOCCULT POSITIVE Complete Physical Examination HEENT: PERRL; normocephalic; atraumatic; no jaundice. CHEST: CTA CARDIAC: RRR + MURMUR ABDOMEN: Soft, nondistended, nontender; no hepatosplenomegaly; bowel sounds are present in all four quadrants. EXTREMITIES: No clubbing, cyanosis, or edema. SKIN: Normal; no rash; no jaundice. CLINICAL REVIEWER: Alert, mildly confused, oriented to self and time (Lashanda Dowling ANTISQUEAK APPLIER) Assessment and Plan Plan ASSESSMENT - anemia - normocytic, hgb 11.2 on admission has has dropped to 9.5. was 9.8 on 12/23 so this is not far from baseline. heme pos stool. colonoscopy 1y ago normal per pt. No recent EGD - leukocytosis, ID following - cardiomyopathy, NSTEMI - cardiology following, having cardiac cath tomorrow. PLAN - EGD with cardiac clearance, inpt vs outpt - monitor CBC - transfuse if needed - supportive care - further recs to follow This pt seen by myself and Dr Garcia and this note is written on her behalf (Lashanda Dowling) Physician Comments seen, examined agree with above await cardiac clearance (Kavitha Garcia MD) Lashanda Dowling Jan 13, 2017 16:45 Kavitha Garcia MD Jan 13, 2017 19:35
[2017-01-13 18:51] LABS: HEMATOCRIT 28.9 % (35.0-46.0); REVIEW FLAG FINAL
[2017-01-13] MEDS: diphenhydrAMINE HCL 25 MG CAP PO SCH (20:41)
[2017-01-13] MEDS: ATORVASTATIN 20 MG TAB PO SCH (20:42)
[2017-01-13] MEDS: cefTRIAXone INJ 2,000 MG in SODIUM CHLORIDE 0.9% INJ 100 ML IV SCH (20:44)
[2017-01-13] MEDS ORDERED: predniSONE 20 MG TAB PO SCH (21:00)
[2017-01-14] VITALS: BP 135/58; PULSE 62; RESP 20; TEMP 98.5; O2SAT 100
[2017-01-14 02:12] LABS: HEMATOCRIT 28.5 % (35.0-46.0); REVIEW FLAG FINAL
[2017-01-14] MEDS: LEVOTHYROXINE SODIUM 50 MCG TAB PO SCH (06:19)
[2017-01-14 06:45] VITALS: BP 142/42; PULSE 85; RESP 20; TEMP 98.6; O2SAT 98
[2017-01-14 07:09] LABS: APTT (PATIENT) 33.4 SEC (24.3-30.1)
[2017-01-14 07:32] LABS: BICARBONATE 26.6 MEQ/L (21.0-32.0); POTASSIUM 4.3 MEQ/L (3.5-5.1)
[2017-01-14] MEDS ORDERED: ASPIRIN 325 MG TAB ONE (08:23)
[2017-01-14] MEDS ORDERED: diphenhydrAMINE HCL 50 MG/ML VIAL ONE (08:49)
[2017-01-14] MEDS ORDERED: MIDAZOLAM HCL 2 MG/2 ML VIAL ONE (08:49)
[2017-01-14] MEDS ORDERED: methylPREDNISolone SOD SUCC 125 MG/2 ML VIAL ONE (08:49)
[2017-01-14] MEDS: FUROSEMIDE 20 MG TAB PO SCH (09:00)
[2017-01-14] MEDS: POTASSIUM CHLORIDE 10 MEQ CAP PO SCH (09:00)
[2017-01-14] MEDS: SODIUM CHLORIDE 0.9% FLUSH 10 ML FLUSH IV FLUSH SCH ×2 (09:00→21:00)
[2017-01-14] MEDS: METOPROLOL TARTRATE 100 MG TAB PO SCH ×2 (09:00→21:11)
[2017-01-14] MEDS: PANTOPRAZOLE SOD 40 MG DELAYED RELEASE TAB PO SCH ×2 (09:00→21:11)
[2017-01-14] MEDS ORDERED: LABETALOL HCL 100 MG/20 ML VIAL ONE (09:04)
[2017-01-14] MEDS ORDERED: ASPIRIN 325 MG TAB PO ONE (09:30)
[2017-01-14] MEDS ORDERED: SODIUM CHLOR 0.9% 1000 ML INJ 1,000 ML IV SCH (09:35)
--- NOTE | 2017-01-14 09:39 | CATHPROC ---
[employer] HIS Report Study Information Study Number Admission Scheduled Start Study Start [id number] 01/11/2017 01/13/2017 Jan 14 2017 8:31AM Referring Institution Admit Source Facility Department 1 Emergency department [facility] - [employer] Access Developer Physician and Clinical Staff Initial Damián Dasilva Master PlumberAshley Kidd,RN Master PlumberRenee Rosario BSN Other Daniel STEPHENSON, Jefferson Cardoza RCIS(BS) Procedures Performed Procedure Location (Site) Vessel Name Angiogram LV LV Ventricle Coronary Angiograms LCA Left Coronary Coronary Angiograms RCA Right Coronary Coronary Angiograms NEELY-LAD Left Coronary Equipment Time Unstacker Description Size Mfg Part Number Used/Scraped TRANSDUCER, TRUWAVE [id number] 09:01 KAMARA GARCIA * Used W/STOCKCOCK *[id number] [id number] *[id number] *[id number] *[id number] *[id number] PIGTAIL ANG. 145 INFINITI [id number] CATHETER *[id number] 09:21 DAIG/ST. JHON MEDICAL ANGIOSEAL, FR6 VIP FR 6 Used *[id number] 09:01 MEDLINE [employer] PACK, CCL CUSTOM * Used *[id number] 09:01 [employer] PACER PEN, SKIN DUAL W/ RULER * Used *[id number]- 09:01 sifonr MEDICAL SHEATH, FR6.5 PRELUDE 11CM FR 6.5 038ACT Used *[id number]- 08:56 sifonr MEDICAL SHEATH, FR6.5 PRELUDE 11CM FR 6.5 038ACT Used *[id number] 09:01 sifonr MEDICAL WIRE, 3MMJ .035 180CM 180CM Used *[id number] 09:01 NAMIC MANIFOLD, 4 PORT * Used *[id number] 09:03 [employer]COMED OMNIPAQUE, 300 MG, 50ML 50ML [id number] Used 09:01 [employer]ED OMNIPAQUE, 350 MG, 100ML 100ML [id number] Used [id number] 09:01 [place] MEDICAL BLANKET,WARM AIR CCL * Used *[id number] Equipment Model, Serial, Lot Number and Expiration Data Description Model Number Serial Number Lot Number Expiration Date ANGIOSEAL, FR6 VIP [id number] 08-14-2017 History: Current Medications Medication Dosage/Unit Route Frequency Last Date/Time Taken K-Dur LASIX Statins (any) Synthroid COZAAR LOPRESSOR ASA PREDNISONE VITAMIN D FISH OIL History: Allergies Allergy Reaction Iodinated Contrast- Oral and IV EYES SWELLING Dye potassium iodide EYES SWELLING sodium iodide EYES SWELLING iodine EYES SWELLING povidone-iodine EYES SWELLING IVP DYE EYES SWELLING History: Risk Factors Family History of Hypertension Dyslipidemia Previous [place] Previous Heart Failure Premature CAD Yes Yes No No Yes Prior Valve Prior PCI Prior CABG Prior CABGDate Surgery Yes No Yes 03/17/2013 On Dialysis No History: CV Disease Selection Items Known CAD History: Stress Tests Stress or Imaging Studies Performed No History: Arrhythmias Selection Items Atrial fibrillation History: Other Current Smoker No Labs Hgb (g/dl) Hct (%) RBC (MIL/MM3) WBC (l/cumm) Platelets (thousands) 11.60-17.00 35.00-51.00 4.00-5.90 4.00-11.00 150.00-450.00 9.8 28.9 3.2 12.8 181 Glucose (mg/dl) BUN (mg/dl) Creatinine (mg/dl) BUN:Creatinine (1:x) 74.00-106.00 7.00-18.00 0.50-1.30 10.00-20.00 126 15 0.8 18.8 Na (meq/l) K (meq/l) Cl (meq/l) CO2 (mmol/L) Ca (mg/dl) 136.00-145.00 3.50-5.10 98.00-107.00 21.00-32.00 8.50-10.10 135 4.1 97 30.2 7.8 PTT (sec) 24.30-30.10 44.8 Troponin I (ng/ml) CPK (u/l) 0.02-0.05 26.00-308.00 1.06 39 Medication Medication Total Dose (Bolus/Oral) Medication Total Dosage/Unit 1% XYLOCAINE 20 mL ASPIRIN 325 mg BENADRYL 25 mg LABETOLOL 20 mg PEPCID 20 mg SOLU-MEDROL 40 mg VERSED 1 mg Medications (Bolus/Oral) Medication Time Given Dosage/Unit Administered By Reason ASPIRIN 01/14/2017 8:29:20 AM 325 mg Gustavo Sanchez RN 325 mg ASPIRIN given in lab by Gustavo Sanchez RN via Oral. Ordered by Damián Martinez. PEPCID 01/14/2017 8:50:20 AM 20 mg M, Renee 20 mg PEPCID given in lab by Renee Arreola BSN in Right Arm via Central IV. Ordered by Damián Martinez. BENADRYL 01/14/2017 8:51:20 AM 25 mg M, Renee 25 mg BENADRYL given in lab by Renee Arreola BSN in Right Arm via Central IV. Ordered by Damián Martinez. SOLU-MEDROL 01/14/2017 8:52:41 AM 40 mg M, Renee 40 mg SOLU-MEDROL given in lab by Renee Arreola BSN in Right Arm via Central IV. Ordered by Thomas Martinez. VERSED 01/14/2017 8:55:59 AM 1 mg M, Renee 1 mg VERSED given in lab by Renee Arreola BSN in Right Arm via Central IV. Ordered by Damián Martinez. 1% XYLOCAINE 01/14/2017 8:56:12 AM 20 mL M, Renee 20 mL 1% XYLOCAINE given in lab by Renee Arreola BSN via Subcutaneous. Ordered by Damián Martinez. LABETOLOL 01/14/2017 9:06:46 AM 20 mg M, Renee 20 mg LABETOLOL given in lab by Renee Arreola BSN in Right Arm via Central IV. Ordered by Damián Martinez . Medication (Drip) Medication Time Given Dosage/Unit Concentration/Unit Diluent (ml) Solution IV Solutions 01/14/2017 8:31:36 AM 0 mL (IV) 500 NaCl .9 Patient arrived on IV Solutions in Right Arm via Central IV. Pump/Drip Flow = 20 ml/hr using NaCl .9. Initial Case Assessment Cardiovascular HR Rhythm NIBP Chest Pain 73 SR 156/65 0 Circulatory - Right Pulses Dorsalis Pedis Femoral 3 3 Scale (0,1,2,3,4,d) Circulatory - Left Pulses Dorsalis Pedis Femoral 3 3 Scale (0,1,2,3,4,d) Neurological State Oriented to time-place- Alert Moves all extremities person Respiration - General Respiration Rate SpO2 (%) O2 (lpm) (B/min) 15 100 2 Final Case Assessment Cardiovascular HR Rhythm NIBP Chest Pain 77 sr 135/54 0 Circulatory - Right Pulses Dorsalis Pedis Femoral 3 3 Scale (0,1,2,3,4,d) Circulatory - Left Pulses Dorsalis Pedis Femoral 3 3 Scale (0,1,2,3,4,d) Neurological State Oriented to time-place- Alert Moves all extremities person Respiration - General Respiration Rate SpO2 (%) O2 (lpm) (B/min) 15 100 2 Chronological Log Time Study Chronological Log 8:23:42 Patient arrived via Bed. 8:23:47 Patient Name, D.O.B, / Armband Verified By R.N. 8:29:20 325 mg ASPIRIN given in lab by Gustavo Sanchez RN via Oral. Ordered by Damián Martinez. 8:30:54 Consent signed by the physician and the patient and verified by the [employer] staff. 8:30:55 Pre-op and post- op instructions given; patient acknowledges understanding of instructions. Verbal Stimulation=2 Physical Stimulation=2 Airway=~AIRWAY~ Respiration=2 TOTAL=8. (0=absent, 1= limited, 8:30:56 2=present) 8:31:00 Reference ECG taken 8:31:27 Presedation assessment performed by [employer] Access Developer RN. 8:31:29 Patient has been NPO for More than 6Hrs. 8:31:31 Skin Breakdown-NONE 8:31:32 Manish Prominences Protected 8:31:35 A PICC CENTRAL IV was noted in the Upper Arm (right). Grade = PATENT 8:31:36 Patient arrived on IV Solutions in Right Arm via Central IV. Pump/Drip Flow = 20 ml/hr using NaCl .9. 8:31:37 History and physical on the chart or being dictated. Vitals capture started with the following parameters, Patient=Adult, Interval=5 min, Initial Pre bhipe=177 mmHg, 8:32:49 Deflation Rate=5 mmHg, Cuff placed on Right Arm 8:33:32 HR=75 bpm, VVLS=953/59 mmhg, SpO2=97.0 %, Resp=15 B/min, Pain=0, Petr=10, Edwards=2 Assessment: Initial Case, HR=73 BPM, Rhythm=SR, TUFD=238/65 mmhg, Chest Pain=0 Right Pulses: Luis Alfredo Ped=3, Femoral=3 8:34:36 Left Pulses: Luis Alfredo Ped=3, Femoral=3 Neurological: State=Alert, Ox3, ARRIAGA Respiration: Resp=15 B/min, QcA7=184 %, O2=2 lpm 8:35:47 Bilateral groins prepped with 2% chlorhexidine, and draped after a 3 minute waiting time. 8:39:18 HR=74 bpm, TLQD=454/64 mmhg, SpO2=99.0 %, Resp=10 B/min, Pain=0, Petr=10, Edwards=2 8:41:17 Pressure channel 1 zeroed. 8:42:49 MD paged 8:43:38 HR=73 bpm, APUI=130/65 mmhg, CwH2=136.0 %, Resp=12 B/min, Pain=0, Petr=10, Edwards=2 8:48:37 HR=74 bpm, KYHO=294/56 mmhg, AqJ6=228.0 %, Resp=12 B/min, Pain=0, Petr=10, Edwards=2 8:50:06 MD arrived. 8:50:20 20 mg PEPCID given in lab by Renee Arreola BSN in Right Arm via Central IV. Ordered by Vance. Juan 8:51:20 25 mg BENADRYL given in lab by Renee Arreola BSN in Right Arm via Central IV. Ordered by Vance. Alexandra 8:52:41 40 mg SOLU-MEDROL given in lab by Renee Arreola BSN in Right Arm via Central IV. Ordered by Vance. Jenn 8:53:34 HR=73 bpm, WDNH=837/63 mmhg, NsL6=640.0 %, Resp=13 B/min Time Out. Correct patient, correct procedure, correct physician, power injector loaded, or not l oaded with contrast with 8:55:01 surgical team present. Time Out Concurred by MD and individual staff in procedure. 8:55:59 1 mg VERSED given in lab by Renee Arreola BSN in Right Arm via Central IV. Ordered by Vance. Juan 8:56:11 Case Start 8:56:12 20 mL 1% XYLOCAINE given in lab by Renee Arreola BSN via Subcutaneous. Ordered by Gurpreet Martinez 8:58:35 HR=73 bpm, GRNX=856/68 mmhg, GkX5=336.0 %, Resp=11 B/min 9:00:52 Access site was Right Femoral Artery. 9:00:59 A SHEATH, FR6.5 PRELUDE 11CM FR 6.5 was advanced into the Fem Art (right) using the Percutan eous technique. A PIGTAIL ANG. 145 INFINITI CATHETER FR 6 was advanced over a wire. OMNIPAQUE, 300 MG, 50ML 50ML was used 9:02:32 for injections. Recorded Pressure: LV, HR=74, Condition=Condition 1 9:03:26 (Left Ventricle) LV 200/6/10 9:03:36 HR=68 bpm, IHPM=677/62 mmhg, TqO8=225.0 %, Resp=20 B/min, Pain=0, Petr=10, Edwards=2 9:04:35 The LV was injected at 10 cc/sec for a total of 20. OMNIPAQUE, 300 MG, 50ML 50ML used. Recorded Pressure: LV, Ao, HR=72, Condition=Condition 1 9:05:03 (Left Ventricle) LV 202/6/10, (Aorta) Ao 196/62/116 9:05:55 Catheter was removed A JL 4.0 INFINITI CATHETER FR 6 was advanced over a wire. OMNIPAQUE, 350 MG, 100ML 100ML was use d for 9:05:57 injections. 9:06:46 20 mg LABETOLOL given in lab by Renee Arreola BSN in Right Arm via Central IV. Ordered by Damián Simmons. 9:07:41 The LCA was injected and visualized at various angles. OMNIPAQUE, 350 MG, 100ML 100ML used. 9:08:35 HR=75 bpm, VUNQ=566/37 mmhg, RuC1=848.0 %, Resp=18 B/min, Pain=0, Petr=10, Edwards=2 9:10:01 Catheter was removed A 3DRC INFINITI CATHETER FR 6 was advanced over a wire. OMNIPAQUE, 350 MG, 100ML 100ML was used for 9:11:30 injections. 9:11:36 The RCA was injected and visualized at various angles. OMNIPAQUE, 350 MG, 100ML 100ML used. 9:11:49 Catheter was removed A 3DRC INFINITI CATHETER FR 4 was advanced over a wire. OMNIPAQUE, 350 MG, 100ML 100ML was used for 9:13:24 injections. 9:13:32 HR=75 bpm, YYHZ=272/41 mmhg, YiX8=560.0 %, Resp=16 B/min, Pain=0, Petr=10, Edwards=2 9:14:12 The RCA was injected and visualized at various angles. OMNIPAQUE, 350 MG, 100ML 100ML used. 9:16:01 Catheter was removed A MOJGAN INFINITI CATHETER FR 6 was advanced over a wire. OMNIPAQUE, 350 MG, 100ML 100ML was used f or 9:17:09 injections. 9:18:31 HR=78 bpm, VAWE=098/54 mmhg, NaX2=785.0 %, Resp=10 B/min, Pain=0, Petr=10, Edwards=2 9:19:58 The NEELY-LAD was injected and visualized at various angles. OMNIPAQUE, 350 MG, 100ML 100ML u sed. 9:20:20 Catheter was removed 9:21:11 An injection in the Fem Art (right) was made through the SHEATH, FR6.5 PRELUDE 11CM FR 6.5. 9:21:28 Right groin access site reprepped with chlorohexidine for closure device plaement. 9:22:28 ANGIOSEAL, FR6 VIP FR 6 placement in the Fem Art (right) 9:22:43 Case End 9:23:30 HR=76 bpm, ODEI=528/54 mmhg, GbJ4=047.0 %, Resp=20 B/min 9:24:12 No case complications noted. 9:24:13 Cine recording checked. 9:24:15 Bedside Report will be given. 9:24:19 Sterile dressing applied to site Assessment: Final Case, HR=77 BPM, Rhythm=sr, GAHK=852/54 mmhg, Chest Pain=0 Right Pulses: Luis Alfredo Ped=3, Femoral=3 9:24:22 Left Pulses: Luis Alfredo Ped=3, Femoral=3 Neurological: State=Alert, Ox3, ARRIAGA Respiration: Resp=15 B/min, VsX3=224 %, O2=2 lpm 9:29:08 BJFV=001/51 mmhg 9:31:09 Patient moved to bed 9:32:22 Vitals capture stopped. 9:32:26 Patient transported to DOCU. End Study - Contrast Media Used In Study Contrast Total Opened (mL) Total Used (mL) Total Wasted (mL) Omnipaque 110 110 0 End Study - Maximum Contrast Load Max Contrast Load (mL) 468.2 End Study - Radiation Exposure Fluoro Time (minutes) 5.9 End Study - Sheaths Sheaths Pulled By Sheath Hold Time (min) Damián Martinez End Study - Patient Disposition Complications Transferred To Interventional Outcome No Telemetry Bed No attempt made
[2017-01-14] MEDS: amLODIPine BESYLATE 5 MG TAB PO SCH (09:45)
[2017-01-14] MEDS ORDERED: IOHEXOL 350 MG/ML 50 ML BTL (for Cath Lab) OTHER ONE (09:59)
[2017-01-14] MEDS ORDERED: IOHEXOL 350 MG/ML 100 ML BTL (for Cath Lab) OTHER ONE (09:59)
--- NOTE | 2017-01-14 10:03 | MA ---
cc: DARLENE OWEN M.D. DATE: 01/14/2017 PROCEDURE PERFORMED 1. Left heart catheterization. 2. Left ventriculography. 3. Coronary angiography. 4. Left internal mammary bypass graft angiography. 5. Right femoral angiography with Angio-Seal placement. DESCRIPTION OF PROCEDURE The patient was brought to the cardiac medical laboratory technician in a fasting state. She was premedicated for a contrast allergy with Pepcid, Benadryl and steroids. She received 1 mg of IV Versed for sedation for the procedure. Using 1% lidocaine for local anesthesia a 6.5 Kosovan sheath was inserted in the right femoral artery. Left ventricular pressure was then recorded using a pigtail catheter followed by left ventriculography and then a pullback. The aortic valve was crossed easily, i.e., there were no signs of aortic stenosis. Next, coronary angiography was completed using a left 4 Addis for the left coronary artery. The 3-D RC a 6 Kosovan catheter had some damping and I finished the angiography of the right coronary artery with a 4 Kosovan 3-D RC catheter. Angiography was then obtained of the left internal mammary bypass using an MOJGAN catheter. Angiography was then obtained of the right femoral artery via the sheath followed by an uncomplicated Angio-Seal placement. Total blood loss was only 10 cc. There were no complications. The patient tolerated the procedure well. FINDINGS HEMODYNAMICS Left ventricular pressure was 202/6 with an end-diastolic pressure of 10. Aortic pressure was 196/62 with a mean of 116. There was no significant gradient during pullback. LEFT VENTRICULOGRAPHY Left ventriculography reveals a hypercontractile left ventricle. Estimated ejection fraction is 80%. There is no mitral regurgitation seen. There is minimal coronary calcification. CORONARY ANGIOGRAPHY The left main coronary artery is a large vessel and it bifurcates into the LAD and circumflex vessels. The circumflex artery is co-dominant and appears normal. The left anterior descending artery has 40-50% proximal stenosis and competitive flow from the internal mammary bypass. The right coronary artery is co-dominant. This vessel has a focal ostial stenosis of probably about 40% severity. There is some smooth narrowing proximally of about 30% and the remainder of the right coronary artery appears normal. BYPASS GRAFT ANGIOGRAPHY The left internal mammary bypass graft is widely patent to the mid LAD and provides good flow. CONCLUSIONS 1. Systolic hypertension. 2. Above normal ejection fraction consistent with hypertensive disease. 3. Mild coronary artery disease with a patent left internal mammary bypass graft to the LAD. RECOMMENDATIONS Medical management. MD CHRISTY Matthew/JOE /9:29 AM /9:51 AM
--- NOTE | 2017-01-14 10:07 | HHI.PR ---
Addendum to Inpatient Note Addendum Reason: Additional Documentation Additional Information OK with me to DC home later today. Note I increased losartan to 100mg and I added 2.5mg amlodipine for her HTN. Damián Martinez MD Jan 14, 2017 10:07
[2017-01-14] MEDS: predniSONE 5 MG TAB PO SCH (10:30)
[2017-01-14] MEDS ORDERED: BACITRACIN OINT 0.9 GM PKT TOP ONE (10:30)
[2017-01-14] MEDS ORDERED: ONDANSETRON HCL 4 MG/2 ML VIAL IV PUSH PRN (11:00)
[2017-01-14] MEDS: PANTOPRAZOLE SODIUM 40 MG VIAL IV PUSH SCH (13:00)
[2017-01-14] MEDS ORDERED: GETGO ROLLING W1 MI1 (13:13)
--- NOTE | 2017-01-14 13:59 | HHI.GIFU ---
Subjective Remarks Resting in bed. Denies any GI blood loss. No n/v, abdominal pain, obvious blood loss. Daughter at bedside- states that her mother has never had any issues with anemia, is not having any GI blood loss, and they are not interested in any GI workup. (Brooke Hernandez) Objective Vitals I&O Vital Signs Date Time Temp Pulse Resp B/P (MAP) Pulse Ox O2 Delivery O2 Flow Rate FiO2 01/14/17 09:37 96 Room Air 01/14/17 08:00 96 Nasal Cannula 3.00 01/14/17 06:45 98.6 85 20 98 01/14/17 06:45 142/42 (75) 01/14/17 00:00 98.5 62 20 135/58 (83) 100 01/13/17 21:00 75 01/13/17 20:30 96 Nasal Cannula 3.00 01/13/17 20:00 98.5 74 20 138/63 (88) 98 01/13/17 16:52 98.5 75 17 130/58 (82) 93 I/O 01/13/17 01/13/17 01/13/17 01/14/17 01/14/17 01/14/17 07:00 15:00 23:00 07:00 15:00 23:00 Intake Total 693 ml 683 ml Balance 693 ml 683 ml Intake Oral 240 ml IV Total 453 ml 683 ml # Voids 1 1 3 3 # Bowel Movements 1 1 1 Laboratory Laboratory Tests Test 01/13/17 18:10 01/14/17 01:32 01/14/17 06:05 Hemoglobin 9.8 9.4 Hematocrit 28.9 28.5 Activated Partial Thromboplast Time 33.4 Blood Urea Nitrogen 11 Creatinine 0.75 Random Glucose 147 Calcium Level 8.8 Sodium Level 136 Potassium Level 4.3 Chloride Level 103 Carbon Dioxide Level 26.6 Anion Gap 6 Estimat Glomerular Filtration Rate 73 Date/Time Source Procedure Growth Status 01/11/17 21:35 Blood Peripheral Aerobic Blood Culture - Preliminary NO GROWTH IN 3 DAYS Resulted 01/11/17 21:35 Blood Peripheral Anaerobic Blood Culture - Preliminary NO GROWTH IN 3 DAYS Resulted 01/12/17 19:05 Stool Stool Stool Occult Blood (KALANI) - Final HEMOCCULT POSITIVE Complete Imaging Last Impressions Head CT 01/12/17 0000 Signed Impressions: Service Date/Time: Thursday, January 12, 2017 17:12 - CONCLUSION: No acute findings in the brain. May consider MRI of the brain with and without contrast if clinically indicated. Jose Martinez MD Chest X-Ray 01/11/17 1824 Signed Impressions: Service Date/Time: Wednesday, January 11, 2017 18:30 - CONCLUSION: No acute disease. Kong Mitchell MD Physical Exam Examination not done. Daughter upset that I was in to see patient, states she does not have any GI issues and is not having bleeding- refusing to be examined (Brooke Hernandez) Assessment and Plan Plan ASSESSMENT - Anemia, Hemoccult positive stool. Colonoscopy 1 year ago normal per patient. No obvious GI bleeding. Pt was seen and the plan was for possible EGD after cleared by cardiac clearance. Pt had cardiac cath today and has been cleared for d/c. Pt's daughter in room- states that her mother has never had anemia, is not anemic, not having GI bleeding. Explained to patient and daughter that she is anemic and had blood in stool, but her daughter became upset and states that is not her mother's issue and is refusing GI evaluation. - Leukocytosis, ID following - Cardiomyopathy, NSTEMI, S/P cardiac cath, cleared by cardiology for discharge home. PLAN - Pt/daughter refusing GI workup - GI will sign off, please reconsult as needed - This pt seen by myself and Dr Garcia and this note is written on her behalf (Brooke Hernandez) Brooke Hernandez Jan 14, 2017 13:59 Kavitha Garcia MD Jan 14, 2017 18:58
--- NOTE | 2017-01-14 14:08 | HHI.FF ---
Face to Face Verification Diagnosis: (1) Generalized weakness (2) Non-STEMI (non-ST elevated myocardial infarction) (3) Cardiomyopathy (4) CHF (congestive heart failure) (5) Bacteremia due to Gram-positive bacteria Physical Therapy Order: Evaluate and Treat Home Health Nursing Order: Nursing assessment with vital signs IV medication administration I have seen patient Marika Stovall on 01/14/17. My clinical findings support the need for the requested home health care services because: Patient has SOB Infection w/ risk of complications Injectable med education/admin I certify that my clinical findings support that this patient is homebound because: Unsteady gait/balance Poor cardiac reserve Yon Valencia MD Jan 14, 2017 14:08
--- NOTE | 2017-01-14 14:27 | HHI.PR ---
Subjective Remarks Written by Hector Oconnell, acting as scribe for Dr. Valencia on 01/14/17 at 14 :09. Follow up visit GIB, NSTEMI, Strep Bacteremia. Patient seen and examined today. Daughter at the bedside. Daughter reports that mother does not have any anemia and was concerned about the diagnosis. States that he went to the hospital for her mother having chest pain and possibly a heart attack and that all of a sudden they're being thrown off by her having anemia and bleeding. Explained and discussed with patient and daughter that when patient came into the hospital her blood count dropped and there was concern that she might have a GI bleed. She was worked up with a positive stool sample and that gastroenterology consult was ordered for further evaluation. However, her hemoglobin stayed at 9 that the concern for active bleeding is not emergent. It was also discussed that anemia can cause the troponin to be elevated, or can cause heart attack that GI evaluation was needed during that time. Daughter states they understood but states she should be notified and she doesn't want her mother to go through colonoscopy or EGD now. States she wants to take her home tomorrow once her C is arranged and her antibiotic is ordered. Patient denies any chest pain, palpitations, headaches, dizziness. Denies nausea, vomiting, diarrhea. Denies shortness of breath, dyspnea. Objective Vitals Vital Signs Date Time Temp Pulse Resp B/P (MAP) Pulse Ox O2 Delivery O2 Flow Rate FiO2 01/14/17 09:37 96 Room Air 01/14/17 08:00 96 Nasal Cannula 3.00 01/14/17 06:45 98.6 85 20 98 01/14/17 06:45 142/42 (75) 01/14/17 00:00 98.5 62 20 135/58 (83) 100 01/13/17 21:00 75 01/13/17 20:30 96 Nasal Cannula 3.00 01/13/17 20:00 98.5 74 20 138/63 (88) 98 01/13/17 16:52 98.5 75 17 130/58 (82) 93 I/O 01/13/17 01/13/17 01/13/17 01/14/17 01/14/17 01/14/17 07:00 15:00 23:00 07:00 15:00 23:00 Intake Total 693 ml 683 ml Balance 693 ml 683 ml Intake Oral 240 ml IV Total 453 ml 683 ml # Voids 1 1 3 3 # Bowel Movements 1 1 1 Result Diagram: 01/14/17 0132 01/14/17 0605 Imaging Last Impressions Head CT 01/12/17 0000 Signed Impressions: Service Date/Time: Thursday, January 12, 2017 17:12 - CONCLUSION: No acute findings in the brain. May consider MRI of the brain with and without contrast if clinically indicated. Jose Martinez MD Chest X-Ray 01/11/17 1824 Signed Impressions: Service Date/Time: Wednesday, January 11, 2017 18:30 - CONCLUSION: No acute disease. Kong Mitchell MD Objective Remarks GENERAL: This is an obese, well-developed patient, in no apparent distress. SKIN: Warm and dry. HEENT: Normocephalic. Pupils equal round and reactive. Nose without bleeding. Airway patent. NECK: Trachea midline. No JVD. Supple. CARDIOVASCULAR: Regular rate and rhythm without murmurs, gallops, or rubs. RESPIRATORY: Clear to auscultation. Breath sounds equal bilaterally. No wheezes , rales, or rhonchi. GASTROINTESTINAL: Abdomen soft, non-tender, nondistended. Bowel Sounds normoactive x4. MUSCULOSKELETAL: Extremities without clubbing, cyanosis, or edema. NEUROLOGICAL: Awake and alert. Oriented to place, person. No focal neuro deficit. Moves all extremities. Normal speech. Procedures None A/P Problem List: (1) CHF (congestive heart failure) ICD Code: I50.9 - Heart failure, unspecified Status: Acute (2) Elevated troponin ICD Code: R74.8 - Abnormal levels of other serum enzymes Status: Acute (3) Hypokalemia ICD Code: E87.6 - Hypokalemia Status: Acute (4) Generalized weakness ICD Code: R53.1 - Weakness Status: Acute Assessment and Plan 86 y/o female with a history of hypothyroid, HTN, HLD, CHF (last echo EF 35-40% ) and afib presented to the ED with complaints of weakness and nausea. Generalized Weakness, possibly due to adrenal insufficiency related to missed prednisone dose, or history of urosepsis - PT/OT eval and treat - Continue with prednisone Leukocytosis, possible endovascular strep infection, history of Viridans strep in last admission blood cultures WBCs 13.2 Chest x-ray was reviewed and shows no acute disease - Consult infectious disease for recommendations - Continue IV antibiotics Rocephin - Blood cultures NG x3 days - Follow up with Dr. Selby on DC. Continue with IV ABX when discharge CHF, systolic, acute exacerbation Bilateral lower extremity edema, BNP 651 - Chest x-ray showed pacer, mild compensated cardiomegaly. Negative for pneumothorax - Continue Lasix Elevated troponin, troponin 0.4 - NSTEMI HTN - Consult cardiology for further evaluation - Cardiac Cath done and cardiology cleared patient. Off Heparin drip - Medication adjustment done by cardiology - amlodipine, losartan, metoprolol - Follow up with cardiology as an outpatient Brachial plexitis, chronic - Diagnosed in [place] 3 months ago with brachial plexitis - Continue prednisone taper dose GIB - Heme positive stool - Discuss extensively with patient and daughter - Patient and daughter defers colonoscopy and EGD. They will F/U with Dr. Munoz DVT prophylaxis: SCDs Discharge Planning Plan to DC home tomorrow. Case management to arrange HHC and IV antibiotic infusion. Attending Statement This note was transcribed by jaron Oconnell. I, Dr. Yno Valencia personally performed the history, physical exam, and medical decision making; and confirmed the accuracy of the information in the transcribed note. Authenticated by Dr. Yon Valencia on 01/14/17 at 14:53. Problem Qualifiers (1) CHF (congestive heart failure): Qualified Codes: I50.9 - Heart failure, unspecified Hector Ramírez Jan 14, 2017 14:27 Yon Valencia MD Jan 14, 2017 14:53
--- NOTE | 2017-01-14 14:36 | HHI.FF ---
Face to Face Verification Diagnosis: (1) Bacteremia due to Gram-positive bacteria (2) Generalized weakness (3) Non-STEMI (non-ST elevated myocardial infarction) (4) Cardiomyopathy (5) Elevated troponin Physical Therapy Order: Strength and gait training Occupational Therapy Order: Improve ADL Home Health Nursing Order: Medical education Signs/symptoms of disease process Medication education-adverse effect Nursing assessment with vital signs IV medication administration Home Health Aide Order: To Assist In: Bathing and personal care I have seen patient Marika Stovall on 01/14/17. My clinical findings support the need for the requested home health care services because: Ltd mobility - disease progression Deconditioned w/ increased weakness Limited ability to care for self High risk of falls Infection w/ risk of complications I certify that my clinical findings support that this patient is homebound because: Impaired cognitive ability/safety Unsteady gait/balance Hector Ramírez Jan 14, 2017 14:36
[2017-01-14 16:00] VITALS: BP 164/69; PULSE 88; RESP 16; TEMP 98.4; O2SAT 95
[2017-01-14] MEDS: SODIUM CHLOR 0.9% 1000 ML INJ 1,000 ML IV SCH ×2 (16:05→23:09)
[2017-01-14 20:00] VITALS: BP 147/65; PULSE 82; RESP 20; TEMP 98.1; O2SAT 100
[2017-01-14] MEDS: diphenhydrAMINE HCL 25 MG CAP PO SCH (21:11)
[2017-01-14] MEDS: ATORVASTATIN 20 MG TAB PO SCH (21:11)
[2017-01-14] MEDS: cefTRIAXone INJ 2,000 MG in SODIUM CHLORIDE 0.9% INJ 100 ML IV SCH (21:12)
[2017-01-14 22:00] LABS: AUTOMATED NEUTROPHIL # 11.7 TH/MM3 (1.8-7.7); BASOPHIL % 0.2 % (0.0-2.0); HEMATOCRIT 26.4 % (35.0-46.0); HEMO FLAGS DIFF FINAL; LYMPH % 8.8 % (9.0-44.0); LYMPHOCYTE # 1.2 TH/MM3 (1.0-4.8); MEAN CELL VOLUME 89.8 FL (80.0-100.0); MEAN CORPUSCULAR HEMOGLOBIN 29.1 PG (27.0-34.0); MEAN CORPUSCULAR HGB CONC 32.4 % (32.0-36.0); MONO % 2.8 % (0.0-8.0); NEUT % 88.2 % (16.0-70.0); PLATELET COUNT 166 TH/MM3 (150-450); RED BLOOD COUNT 2.94 MIL/MM3 (4.00-5.30); RED CELL DISTRIBUTION WIDTH 15.7 % (11.6-17.2); WHITE BLOOD COUNT 13.3 TH/MM3 (4.0-11.0)
[2017-01-15] VITALS: BP 147/77; PULSE 76; RESP 20; TEMP 97.8; O2SAT 100
[2017-01-15 04:00] VITALS: BP 132/60; PULSE 65; RESP 20; TEMP 97.7; O2SAT 94
[2017-01-15 05:37] LABS: AUTOMATED NEUTROPHIL # 11.5 TH/MM3 (1.8-7.7); BASOPHIL % 0.1 % (0.0-2.0); HEMATOCRIT 25.5 % (35.0-46.0); HEMO FLAGS DIFF FINAL; LYMPH % 10.5 % (9.0-44.0); LYMPHOCYTE # 1.4 TH/MM3 (1.0-4.8); MEAN CELL VOLUME 89.2 FL (80.0-100.0); MEAN CORPUSCULAR HEMOGLOBIN 29.4 PG (27.0-34.0); MONO % 4.9 % (0.0-8.0); NEUT % 84.5 % (16.0-70.0); PLATELET COUNT 168 TH/MM3 (150-450); RED BLOOD COUNT 2.86 MIL/MM3 (4.00-5.30); RED CELL DISTRIBUTION WIDTH 15.7 % (11.6-17.2); WHITE BLOOD COUNT 13.6 TH/MM3 (4.0-11.0)
[2017-01-15 06:14] LABS: BICARBONATE 26.5 MEQ/L (21.0-32.0)
[2017-01-15] MEDS: LEVOTHYROXINE SODIUM 50 MCG TAB PO SCH (06:52)
[2017-01-15 08:00] VITALS: BP 130/85; PULSE 68; RESP 16; TEMP 98.4; O2SAT 100
[2017-01-15] MEDS ORDERED: LOSARTAN 50 MG TAB PO SCH (09:00)
[2017-01-15] MEDS: SODIUM CHLORIDE 0.9% FLUSH 10 ML FLUSH IV FLUSH SCH (09:00)
--- NOTE | 2017-01-15 09:35 | HHI.PR ---
Subjective Remarks Follow up visit GIB, NSTEMI, Strep Bacteremia. Patient seen and examined today. Daughter at the bedside. Daughter states patient more confuse this morning. Patient states " I am sick and tired of being in shelter. I can't do anything inside my house." Reoriented that she is at the hospital. Daughter is concerned that her mother has not gotten out of bed since admission, or that she does not know whether PT has worked with her. States that she will also be going to [place] and will place her mother in [facility] for respite care while she is away. Discussed plan for continuing IV antibiotic, follow with Dr. Selby - appointment is 02/03/17. IV antibiotics is through [facility] with end date 02/05/17. Patient denies any pain or discomfort. Denies shortness of breath on 2 L nasal cannula, nausea, vomiting, diarrhea. Denies any chest pain , palpitations, headaches, dizziness. Objective Vitals Vital Signs Date Time Temp Pulse Resp B/P (MAP) Pulse Ox O2 Delivery O2 Flow Rate FiO2 01/15/17 04:00 97.7 65 20 132/60 (84) 94 01/15/17 00:00 97.8 76 20 147/77 (100) 100 01/14/17 20:00 98.1 82 20 147/65 (92) 100 01/14/17 19:00 Nasal Cannula 3.00 01/14/17 16:00 98.4 88 16 164/69 (100) 95 01/14/17 09:37 96 Room Air I/O 01/14/17 01/14/17 01/14/17 01/15/17 01/15/17 01/15/17 07:00 15:00 23:00 07:00 15:00 23:00 Intake Total 683 ml 4.6 ml Balance 683 ml 4.6 ml IV Total 683 ml 4.6 ml # Voids 3 1 5 1 # Bowel Movements 1 1 Result Diagram: 01/15/17 0502 01/15/17 0502 Imaging Last Impressions Head CT 01/12/17 0000 Signed Impressions: Service Date/Time: Thursday, January 12, 2017 17:12 - CONCLUSION: No acute findings in the brain. May consider MRI of the brain with and without contrast if clinically indicated. Jose Martinez MD Chest X-Ray 01/11/17 1820 Signed Impressions: Service Date/Time: Wednesday, January 11, 2017 18:30 - CONCLUSION: No acute disease. Kong Mitchell MD Objective Remarks GENERAL: This is an obese, well-developed patient, in no apparent distress. SKIN: Warm and dry. HEENT: Normocephalic. Pupils equal round and reactive. Nose without bleeding. Airway patent. NECK: Trachea midline. No JVD. Supple. CARDIOVASCULAR: Regular rate and rhythm without murmurs, gallops, or rubs. RESPIRATORY: Clear to auscultation. Breath sounds equal bilaterally. No wheezes , rales, or rhonchi. GASTROINTESTINAL: Abdomen soft, non-tender, nondistended. Bowel Sounds normoactive x4. MUSCULOSKELETAL: Extremities without clubbing, cyanosis, or edema. NEUROLOGICAL: Awake and alert. Oriented to place, person. No focal neuro deficit. Moves all extremities. Normal speech. Procedures None A/P Problem List: (1) CHF (congestive heart failure) ICD Code: I50.9 - Heart failure, unspecified Status: Acute (2) Elevated troponin ICD Code: R74.8 - Abnormal levels of other serum enzymes Status: Acute (3) Hypokalemia ICD Code: E87.6 - Hypokalemia Status: Acute (4) Generalized weakness ICD Code: R53.1 - Weakness Status: Acute Assessment and Plan 86 y/o female with a history of hypothyroid, HTN, HLD, CHF (last echo EF 35-40% ) and afib presented to the ED with complaints of weakness and nausea. Generalized Weakness, possibly due to adrenal insufficiency related to missed prednisone dose, or history of urosepsis - PT/OT eval and treat - Continue with prednisone Leukocytosis, possible endovascular strep infection, history of Viridans strep in last admission blood cultures WBCs 13.2 Chest x-ray was reviewed and shows no acute disease - Consult infectious disease for recommendations - Continue IV antibiotics Rocephin - Blood cultures NG x3 days - Follow up with Dr. Selby on DC 02/03/17. Continue with IV ABX when discharge 02/05/17 CHF, systolic, acute exacerbation Bilateral lower extremity edema, BNP 651 - Chest x-ray showed pacer, mild compensated cardiomegaly. Negative for pneumothorax - Continue Lasix - Improved BLE edema Elevated troponin, troponin 0.4 - NSTEMI HTN - Consult cardiology for further evaluation - Cardiac Cath done and cardiology cleared patient. Off Heparin drip - Medication adjustment done by cardiology - amlodipine, losartan, metoprolol - Follow up with cardiology as an outpatient Brachial plexitis, chronic - Diagnosed in [place] 3 months ago with brachial plexitis - Continue prednisone taper dose GIB - Heme positive stool - Discuss extensively with patient and daughter - Patient and daughter defers colonoscopy and EGD. They will F/U with Dr. Munoz DVT prophylaxis: SCDs Discussed with patient, daughter, nursing, Dr. Valencia Discharge Planning Plan to DC home today. Case management to arrange HHC and IV antibiotic infusion. Problem Qualifiers (1) CHF (congestive heart failure): Qualified Codes: I50.9 - Heart failure, unspecified Hector Ramírez Jan 15, 2017 09:35
[2017-01-15] MEDS: POTASSIUM CHLORIDE 10 MEQ CAP PO SCH (09:39)
[2017-01-15] MEDS: PANTOPRAZOLE SOD 40 MG DELAYED RELEASE TAB PO SCH (09:40)
[2017-01-15] MEDS: predniSONE 5 MG TAB PO SCH (09:40)
[2017-01-15] MEDS: METOPROLOL TARTRATE 100 MG TAB PO SCH (09:41)
[2017-01-15] MEDS: amLODIPine BESYLATE 5 MG TAB PO SCH (09:41)
[2017-01-15] MEDS: FUROSEMIDE 20 MG TAB PO SCH (09:42)
[2017-01-15] MEDS ORDERED: POTASSIUM CHLOR 20 MEQ PREMIX 100 ML IV SCH (10:00)
[2017-01-15] MEDS ORDERED: AMLO5 PO (10:45)
[2017-01-15] MEDS ORDERED: PRED5TAB PO (10:45)
[2017-01-15] MEDS ORDERED: CEFT2INJ2 IV (10:45)
[2017-01-15] MEDS ORDERED: COZA50TA PO (10:45)
[2017-01-15] MEDS: SODIUM CHLOR 0.9% 1000 ML INJ 1,000 ML IV SCH (11:12)
--- NOTE | 2017-01-15 12:15 | HHI.FF ---
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 Coded Allergies: Iodinated Contrast- Oral and IV Dye (Verified Allergy, Severe, EYES SWELLING, 01/11/17) iodine (Verified Allergy, Severe, EYES SWELLING, 01/11/17) potassium iodide (Verified Allergy, Severe, EYES SWELLING, 01/11/17) povidone-iodine (Verified Allergy, Severe, EYES SWELLING, 01/11/17) sodium iodide (Verified Allergy, Severe, EYES SWELLING, 01/11/17) sodium iodide (Verified Allergy, Severe, EYES SWELLING, 01/11/17) Uncoded Allergies: IVP DYE (Allergy, Unknown, EYES SWELLING, 05/17/08) Administer Medication Ceftriaxone 2 grams IV q 24 hours Stop Treatment: Feb 05, 2017 Additional Information Venous access: PICC Line Additional Instructions [x] Peripheral flush and dressing changes per protocol [x] Implanted port and central line maintenance technician: * Implanted port: 10 ml Normal Saline followed by 5 ml Heparin 100 units/ml Heparin flush after each use and monthly to maintain. [] May leave port accessed during therapy. [] May leave peripheral site accessed for duration of therapy. [x] If patient has SOB or respiratory distress, check oxygen saturation. If less than 90% or clinical signs of respiratory distress, administer oxygen at 2 L/min. via nasal cannula and notify physician. [x] Anaphylaxis/Reaction orders: * Stop infusion. * Keep IV line open with saline flush. * Notify physician. * Monitor vital signs every 15 minutes until symptoms resolve. * Check Oxygen saturation; Oxygen at 2 L/min. via nasal cannula if less than 90% or clinical signs of respiratory distress. * Administer diphenhydramine (Benadryl) 25 mg IV STAT, (unless patient has received as pre-med). May repeat once, if necessary. * Solu-Cortef 250 mg IVP over 30-60 seconds, use 100 mg vials for each dissolution. * Epinephrine (1mg/1 ml) 0.3 mg subcutaneously or IVP now with any signs of respiratory distress. * Check with physician for new additional pre-med orders if patient is re- challenged or re-treated. [x] May remove PICC line when treatment complete, after confirming with Physician. [x] If the patient is admitted to the hospital, the ED, or transferred via [facility] , complete transfer form including medication reconciliation order sheet. Laboratory Tests Weekly Labs: CBC w/diff, Creatinine, LFT's (Hepatic function test) (Labs every Friday copy to Dr mally Selby) Shiela Romo MD Jan 15, 2017 12:15
--- NOTE | 2017-01-15 12:19 | HHI.IDPN ---
Subjective Subjective Remarks Patient is an 86-year-old female, known to me from her last hospitalization, admitted to the hospital for further evaluation of significant weakness, neck pain and headache, and an episode of vomiting. During her last admission she was worked up for bilateral upper and lower extremity pain. Prior to that admission she was [place] and initially she had upper extremity and shoulder pain. She was diagnosed to have brachial plexitis, and she was treated with steroids. She went to the long term, and her daughter took her to [place] and has been staying with her when she developed recurrent upper extremity pain, and this time she started having pain in both lower extremities. She was unable to do any ambulation, and the daughter was not able to take care of her. She was brought into the hospital, and workup at that time did not show any neurological explanation for all her symptoms. She was found to have strep viridans bacteremia, and her echo did not show any vegetation. ALPHONSO was not pursued, since treatment most likely will not be changed, and she is not a good surgical candidate. Patient has had mitral valve replacement as well as a pacemaker. Her follow-up blood cultures during that admission all came back negative. She was discharged on IV Rocephin, with plans to complete treatment on February 05. Patient's pain in her extremities improved with prednisone 20 mg daily. She was discharged on , and saw her primary care physician, who started tapering her prednisone by 2.5 mg on a weekly basis. She went down to 17.5 on December 31, and then 15 mg starting January 05. She was actually doing quite well, and has not had any pain and ambulating. There is been no fever or chills. She denies any respiratory complaint. There's been no diarrhea or any abdominal pain. Since admission here, her chest x-ray was normal. CT of the head was unremarkable. She is afebrile. She has some mild elevation of her LFTs. Her sedimentation rate was down to 18 and it was 56 during her last admission. Her blood cultures have been negative. Currently patient states that her neck pain and headache have all resolved. Infectious disease consultation has been requested to evaluate the patient. Antibiotics I attest that I obtained, updated or reviewed the home and current medications. Rocephin Current Medications Medications (Trade) Dose Ordered Sig/Yuly Route Start Time Stop Time Status Last Admin (NS Flush) 2 ml UNSCH PRN IV FLUSH 01/11/17 20:30 (NS Flush) 2 ml BID IV FLUSH 01/11/17 21:00 01/15/17 09:00 (Narcan Inj) 0.4 mg UNSCH PRN IV PUSH 01/11/17 20:30 (Milk Of Magnesia Liq) 30 ml Q12H PRN PO 01/11/17 20:30 (Senokot) 17.2 mg Q12H PRN PO 01/11/17 20:30 (Dulcolax Supp) 10 mg DAILY PRN RECTAL 01/11/17 20:30 (Lactulose Liq) 30 ml DAILY PRN PO 01/11/17 20:30 Ceftriaxone Sodium 2000 mg/ Sodium Chloride 100 ml @ 200 mls/hr Q24H IV 01/11/17 21:00 01/14/17 21:12 (Synthroid) 50 mcg DAILY@0700 PO 01/12/17 07:00 01/15/17 06:52 (Lopressor) 100 mg BID PO 01/11/17 21:30 01/15/17 09:41 (Protonix) 40 mg BID PO 01/12/17 09:00 01/15/17 09:40 (KCl) 20 meq DAILY PO 01/12/17 09:00 01/15/17 09:39 (Lipitor) 20 mg HS PO 01/12/17 21:00 01/14/17 21:11 (Patterson 5-325 Mg) 1 tab Q4H PRN PO 01/11/17 21:30 (Patterson 7.5-325 Mg) 1 tab Q4H PRN PO 01/11/17 21:30 01/11/17 23:23 (Lasix) 40 mg DAILY PO 01/12/17 09:00 01/15/17 09:42 (Heparin Inj) 5,000 units UNSCH PRN IV PUSH 01/12/17 09:00 (Heparin Inj) 2,500 units UNSCH PRN IV PUSH 01/12/17 09:00 (Benadryl) 25 mg HS PO 01/13/17 21:00 01/14/17 21:11 Sodium Chloride 1,000 ml @ 83 mls/hr Q12H3M IV 01/13/17 11:00 01/18/17 10:59 01/14/17 23:09 (Aspirin) 325 mg COMMUNITY AFFAIRS DIRECTOR PO 01/13/17 11:00 01/17/17 10:59 Future Hold 01/14/17 08:25 (Benadryl) 50 mg COMMUNITY AFFAIRS DIRECTOR PO 01/13/17 11:00 01/17/17 10:59 (Valium) 2.5 mg COMMUNITY AFFAIRS DIRECTOR PO 01/13/17 11:00 01/17/17 10:59 (Pill Splitter) 1 ea UNSCH PRN OTHER 01/13/17 11:15 (Deltasone) 12.5 mg DAILY PO 01/14/17 10:30 01/15/17 09:40 (Cozaar) 100 mg DAILY PO 01/15/17 09:00 01/15/17 09:41 (Norvasc) 2.5 mg DAILY PO 01/14/17 09:45 01/15/17 09:41 (Zofran Inj) 4 mg Q4H PRN IV PUSH 01/14/17 11:00 Potassium Chloride 100 ml @ 50 mls/hr Q2H IV 01/15/17 10:00 01/15/17 13:59 01/15/17 10:32 Lines PICC Past Medical History Hypothyroidism Hypertension Hyperlipidemia CAD A. fib Brachial plexitis Past Surgical History Permanent pacemaker Status post mitral valve replacement, with porcine valve Appendectomy Hysterectomy 2 shoulder replacement Right knee replacement Allergies: Coded Allergies: Iodinated Contrast- Oral and IV Dye (Verified Allergy, Severe, EYES SWELLING, 01/11/17) iodine (Verified Allergy, Severe, EYES SWELLING, 01/11/17) potassium iodide (Verified Allergy, Severe, EYES SWELLING, 01/11/17) povidone-iodine (Verified Allergy, Severe, EYES SWELLING, 01/11/17) sodium iodide (Verified Allergy, Severe, EYES SWELLING, 01/11/17) sodium iodide (Verified Allergy, Severe, EYES SWELLING, 01/11/17) Uncoded Allergies: IVP DYE (Allergy, Unknown, EYES SWELLING, 05/17/08) Objective . Vital Signs Date Time Temp Pulse Resp B/P (MAP) Pulse Ox O2 Delivery O2 Flow Rate FiO2 01/15/17 08:00 96 Nasal Cannula 3.00 01/15/17 08:00 98.4 68 16 130/85 (100) 100 01/15/17 04:00 97.7 65 20 132/60 (84) 94 11/1/17 00:00 97.8 76 20 147/77 (100) 100 01/14/17 20:00 98.1 82 20 147/65 (92) 100 01/14/17 19:00 Nasal Cannula 3.00 01/14/17 16:00 98.4 88 16 164/69 (100) 95 . Laboratory Tests Test 01/13/17 13:00 01/13/17 18:10 01/14/17 01:32 01/14/17 21:46 Hemoglobin 9.5 GM/DL 9.8 GM/DL 9.4 GM/DL 8.6 GM/DL Hematocrit 29.1 % 28.9 % 28.5 % 26.4 % White Blood Count 13.3 TH/MM3 Red Blood Count 2.94 MIL/MM3 Mean Corpuscular Volume 89.8 FL Mean Corpuscular Hemoglobin 29.1 PG Mean Corpuscular Hemoglobin Concent 32.4 % Red Cell Distribution Width 15.7 % Platelet Count 166 TH/MM3 Mean Platelet Volume 7.7 FL Neutrophils (%) (Auto) 88.2 % Lymphocytes (%) (Auto) 8.8 % Monocytes (%) (Auto) 2.8 % Eosinophils (%) (Auto) 0.0 % Basophils (%) (Auto) 0.2 % Neutrophils # (Auto) 11.7 TH/MM3 Lymphocytes # (Auto) 1.2 TH/MM3 Monocytes # (Auto) 0.4 TH/MM3 Eosinophils # (Auto) 0.0 TH/MM3 Basophils # (Auto) 0.0 TH/MM3 CBC Comment DIFF FINAL Differential Comment Test 01/15/17 05:02 White Blood Count 13.6 TH/MM3 Red Blood Count 2.86 MIL/MM3 Hemoglobin 8.4 GM/DL Hematocrit 25.5 % Mean Corpuscular Volume 89.2 FL Mean Corpuscular Hemoglobin 29.4 PG Mean Corpuscular Hemoglobin Concent 33.0 % Red Cell Distribution Width 15.7 % Platelet Count 168 TH/MM3 Mean Platelet Volume 7.7 FL Neutrophils (%) (Auto) 84.5 % Lymphocytes (%) (Auto) 10.5 % Monocytes (%) (Auto) 4.9 % Eosinophils (%) (Auto) 0.0 % Basophils (%) (Auto) 0.1 % Neutrophils # (Auto) 11.5 TH/MM3 Lymphocytes # (Auto) 1.4 TH/MM3 Monocytes # (Auto) 0.7 TH/MM3 Eosinophils # (Auto) 0.0 TH/MM3 Basophils # (Auto) 0.0 TH/MM3 CBC Comment DIFF FINAL Differential Comment Laboratory Tests Test 01/14/17 06:05 01/15/17 05:02 Blood Urea Nitrogen 11 MG/DL 12 MG/DL Creatinine 0.75 MG/DL 0.82 MG/DL Random Glucose 147 MG/DL 118 MG/DL Calcium Level 8.8 MG/DL 8.1 MG/DL Sodium Level 136 MEQ/L 139 MEQ/L Potassium Level 4.3 MEQ/L 3.0 MEQ/L Chloride Level 103 MEQ/L 104 MEQ/L Carbon Dioxide Level 26.6 MEQ/L 26.5 MEQ/L Anion Gap 6 MEQ/L 9 MEQ/L Estimat Glomerular Filtration Rate 73 ML/MIN 66 ML/MIN Microbiology Date/Time Source Procedure Growth Status 01/12/17 19:05 Stool Stool Stool Occult Blood (KALANI) - Final HEMOCCULT POSITIVE Complete Imaging RADIOLOGY STUDIES/FILMS REVIEWED Head CT 01/12/17 0000 Signed Impressions: Service Date/Time: Thursday, January 12, 2017 17:12 - CONCLUSION: No acute findings in the brain. May consider MRI of the brain with and without contrast if clinically indicated. Jose Martinez MD Chest X-Ray 01/11/17 1824 Signed Impressions: Service Date/Time: Wednesday, January 11, 2017 18:30 - CONCLUSION: No acute disease. Kong Mitchell MD Physical Exam GENERAL: awake and alert, not in respiratory distress. SKIN: Warm and dry. Has purpuric rash in both UE and both legs, no embolic lesions seen in hands or feet HEAD: Atraumatic. Normocephalic. No temporal wasting, or tenderness. EYES: [place] conjunctiva. No petechia or hemorrhage. Pupils equal, round and reactive to light. Extraocular movements full and intact. No scleral icterus. EARS, NOSE AND THROAT: Nose without bleeding or purulent nasal discharge. No sinus tenderness. Mucous membranes pink and moist. No oral lesions noted. NECK: Trachea midline. Supple and not tender, no meningeal signs CARDIOVASCULAR: Regular rate and rhythm. Has murmur systolic at base of the heart. No rub. Sternotomy scar C/W surgical history. Pacer in her left upper chest with no evidence of infection RESPIRATORY: Clear to auscultation. Breath sounds equal bilaterally. No rales , wheezing or rhonchi. Decreased at the bases ABDOMEN: Soft, slightly round, non-tender, nondistended. Bowel sounds present and normoactive. No guarding. No rebound. No organomegaly. EXTREMITIES: No clubbing, cyanosis. Minimal edema both feet. Notable for the purpuric rash in forearms and legs. No joint effusion, has good ROM. No calf tenderness. Well perfused and warm. NEUROLOGICAL: Awake and alert. Cranial nerves grossly intact. Motor grossly within normal limits. PSYCHIATRIC: Normal affect, calm and cooperative. LINE: No evidence of infection Assessment & Plan Remarks IMPRESSION MARQUEZ, neck pain and weakness, etiology? Resolved - felt to be prob anginal equivalent - Cath mild CAD Episode of Strep viridans bacteremia, being treated for endovascular infection , she is S/P MVR and has pacer Fibromyalgia, pain under control, on steroids, being tapered Hx atrial fib, has been in NSR RECOMMENDATION Continue Rocephin - her infection seem to be under control - plan to complete Rrx Feb 05 - she has appointment with Dr Mally Selby, and will decide on course of Rx: stop, or chronic suppression I filled out Abx infusion form D/C plans noted Agree with plans Shiela Romo MD Jan 15, 2017 12:19
--- NOTE | 2017-01-15 13:13 | HHI.DCPOC ---
Discharge Care Plan Diagnosis: (1) Bacteremia due to Gram-positive bacteria (2) Generalized weakness (3) Non-STEMI (non-ST elevated myocardial infarction) (4) Elevated troponin Your Health Problems Are: Leg Swelling Bleeding Tendency Shortness of Breath Goals to Promote Your Health * To prevent worsening of your condition and complications * To maintain your health at the optimal level Directions to Meet Your Goals Take your medications as prescribed Follow your dietary instruction Follow activity as directed Keep your appointments as scheduled Take your immunizations and boosters as scheduled If your symptoms worsen call your PCP, if no PCP go to Urgent Care Center or Emergency Room Smoking is Dangerous to Your Health. Avoid second hand smoke Call the 24-hour hour crisis hotline for domestic abuse at Hector Ramírez Jan 15, 2017 13:13
--- NOTE | 2017-01-15 13:24 | HHI.DS ---
Discharge Summary Admission Date Jan 11, 2017 at 22:00 Discharge Date: Jan 15, 2017 Admitting Diagnosis NSTEMI (1) CHF (congestive heart failure) ICD Code: I50.9 - Heart failure, unspecified Status: Acute (2) Elevated troponin ICD Code: R74.8 - Abnormal levels of other serum enzymes Status: Acute (3) Hypokalemia ICD Code: E87.6 - Hypokalemia Status: Acute (4) Generalized weakness ICD Code: R53.1 - Weakness Status: Acute (5) Non-STEMI (non-ST elevated myocardial infarction) ICD Code: I21.4 - Non-ST elevation (NSTEMI) myocardial infarction Procedures None Brief History - From Admission Written by JEROD Lal acting as scribe for Dr. Hernandez] on 01/11/17 at 20:50. 86 y/o female with a history of hypothyroid, HTN, HLD, CHF (last echo EF 35-40% ) and afib presented to the ED with complaints of weakness and nausea. She states she was on the toilet this afternoon and became very weak and was unable to get up. She had associated nausea but no vomiting. She also is complaining of a Sharp, 10/10, bilateral MARQUEZ, with no associated no vision change. The daughter is at the bedside and states because of the nausea she did not take any medications today including her hypertensives and prednisone. She was just discharged Dec 30, 2016 from the hospital for urosepsis and has been getting IV antibiotics at home with home health. She was seen by her PCP and Lasix was increased to 40mg a day, per the daughter she was not aware she had to limit fluid. Edema is better in lower extremities. Daughter also states she is on a prednisone taper of and is currently on 12.5mg, last taper was Friday. 3 months ago she was diagnosed with brachial plexitis injury in which she is taking the prednisone for. Patient denies any neck pain, sob, fever, chills or chest pain. CBC/BMP: 01/15/17 0502 01/15/17 0502 Significant Findings Laboratory Tests Test 01/12/17 15:13 01/12/17 17:11 01/13/17 00:10 01/13/17 06:00 Activated Partial Thromboplast Time 113.9 SEC (24.3-30.1) 83.0 SEC (24.3-30.1) 61.0 SEC (24.3-30.1) 44.8 SEC (24.3-30.1) Test 01/13/17 08:40 01/13/17 13:00 01/13/17 18:10 01/14/17 01:32 White Blood Count 12.8 TH/MM3 (4.0-11.0) Red Blood Count 3.24 MIL/MM3 (4.00-5.30) Hemoglobin 9.4 GM/DL (11.6-15.3) 9.5 GM/DL (11.6-15.3) 9.8 GM/DL (11.6-15.3) 9.4 GM/DL (11.6-15.3) Hematocrit 29.0 % (35.0-46.0) 29.1 % (35.0-46.0) 28.9 % (35.0-46.0) 28.5 % (35.0-46.0) Neutrophils (%) (Auto) 74.9 % (16.0-70.0) Neutrophils # (Auto) 9.6 TH/MM3 (1.8-7.7) Test 01/14/17 06:05 01/14/17 21:46 01/15/17 05:02 Activated Partial Thromboplast Time 33.4 SEC (24.3-30.1) Random Glucose 147 MG/DL (74-106) 118 MG/DL (74-106) Estimat Glomerular Filtration Rate 73 ML/MIN (>89) 66 ML/MIN (>89) White Blood Count 13.3 TH/MM3 (4.0-11.0) 13.6 TH/MM3 (4.0-11.0) Red Blood Count 2.94 MIL/MM3 (4.00-5.30) 2.86 MIL/MM3 (4.00-5.30) Hemoglobin 8.6 GM/DL (11.6-15.3) 8.4 GM/DL (11.6-15.3) Hematocrit 26.4 % (35.0-46.0) 25.5 % (35.0-46.0) Neutrophils (%) (Auto) 88.2 % (16.0-70.0) 84.5 % (16.0-70.0) Lymphocytes (%) (Auto) 8.8 % (9.0-44.0) Neutrophils # (Auto) 11.7 TH/MM3 (1.8-7.7) 11.5 TH/MM3 (1.8-7.7) Calcium Level 8.1 MG/DL (8.5-10.1) Potassium Level 3.0 MEQ/L (3.5-5.1) Imaging Last Impressions Head CT 01/12/17 0000 Signed Impressions: Service Date/Time: Thursday, January 12, 2017 17:12 - CONCLUSION: No acute findings in the brain. May consider MRI of the brain with and without contrast if clinically indicated. Jose Martinez MD Chest X-Ray 01/11/17 1824 Signed Impressions: Service Date/Time: Wednesday, January 11, 2017 18:30 - CONCLUSION: No acute disease. Kong Mitchell MD PE at Discharge GENERAL: This is an obese, well-developed patient, in no apparent distress. SKIN: Warm and dry. HEENT: Normocephalic. Pupils equal round and reactive. Nose without bleeding. Airway patent. NECK: Trachea midline. No JVD. Supple. CARDIOVASCULAR: Regular rate and rhythm without murmurs, gallops, or rubs. RESPIRATORY: Clear to auscultation. Breath sounds equal bilaterally. No wheezes , rales, or rhonchi. GASTROINTESTINAL: Abdomen soft, non-tender, nondistended. Bowel Sounds normoactive x4. MUSCULOSKELETAL: Extremities without clubbing, cyanosis, or edema. NEUROLOGICAL: Awake and alert. Oriented to place, person. No focal neuro deficit. Moves all extremities. Normal speech. Pt update on day of discharge Follow up visit GIB, NSTEMI, Strep Bacteremia. Patient seen and examined today. Daughter at the bedside. Daughter states patient more confuse this morning. Patient states " I am sick and tired of being in [facility]. I can't do anything inside my house." Reoriented that she is at the hospital. Daughter is concerned that her mother has not gotten out of bed since admission, or that she does not know whether PT has worked with her. States that she will also be going to [place] and will place her mother in [facility] for respite care while she is away. Discussed plan for continuing IV antibiotic, follow with Dr. Selby - appointment is 02/03/17. IV antibiotics is through [facility] with end date 02/05/17. Patient denies any pain or discomfort. Denies shortness of breath on 2 L nasal cannula, nausea, vomiting, diarrhea. Denies any chest pain , palpitations, headaches, dizziness. Hospital Course Patient is an 86-year-old female who came in to the hospital with complaints of weakness and nausea. Patient has elevated WBC 13.2 but has been discharged previously from the hospital for sepsis with strep viridans bacteremia and is being seen as an outpatient by Dr. Selby on IV Rocephin. Her blood cultures were negative to date. Patient was found to have elevated troponin, diagnosed with NSTEMI has been seen by cardiologists were and she had cardiac catheter done. Dr. Martinez from cardiology increased patient's losartan 200 mg and added amlodipine 2.5 mg daily for BP management. Patient was also worked up for GI bleed since his hemoglobin dropped on admission and positive for occult blood. However, GI saw the patient and the daughter defers colonoscopy and EGD, prefers to follow-up with Dr. Munoz for future GI referral. She had brachial plexitis which has been diagnosed in [place] and has been on prednisone which she continued during hospitalization with tapering dose. Patient's overall clinical condition has improved. Patient has met maximal benefits of hospitalization. Clinically stable for discharge. Patient will continue IV antibiotics managed by [facility] and home health care. Discussed extensively with daughter all discharge instructions including follow- up with Dr. Selby and Dr. Munoz. Pt Condition on Discharge: Good Discharge Disposition: Disch w/ Home Health Serv Discharge Time: > 30 minutes Discharge Instructions DIET: Follow Instructions for: Heart Healthy Diet Activities you can perform: Regular-No Restrictions, Weight Bearing as Benjamin Activities to Avoid: Strenuous Activity, Driving Follow up Referrals: Infectious Disease - 3 Weeks with Mally Selby PCP Follow-up - 3 Weeks New Medications: Walker Rolling/GetGo (Walker Rolling/GetGo) 1 Mis Mis EA .ROUTE DIRECTED, #1 Amlodipine (Norvasc) 5 Mg Tab 2.5 MG PO DAILY for Blood Pressure Management, #30 TAB Losartan (Cozaar) 50 Mg Tab 100 MG PO DAILY for Blood Pressure Management, #30 TAB Prednisone (Prednisone) 5 Mg Tab 12.5 MG PO DAILY for Brachial Plexitis, #14 TAB Changed Medications: Ceftriaxone Inj (Ceftriaxone Inj) 2 Gm/50 Ml Bagp 2 GM IV Q24H for Infection for 21 Days, #21 BAG 0 Refills (Medication details modified) Ball Infusion Continued Medications: Acetaminophen (Tylenol) 325 Mg Tab 325 MG PO DAILY, #1 TAB 0 Refills Amitriptyline (Amitriptyline) 10 Mg Tab 20 MG PO HS, TAB Cholecalciferol (Vitamin D-1000) 1,000 Unit Tab 1000 UNITS PO DAILY for Nutritional Supplement, #1 BOTTLE 0 Refills Furosemide (Furosemide) 20 Mg Tab 20 MG PO DAILY for Blood Pressure Management for 30 Days, #30 TAB 0 Refills Levothyroxine (Levothyroxine) 50 Mcg Tab 50 MCG PO DAILY for Thyroid for 30 Days, #30 TAB 0 Refills Metoprolol Tartrate (Metoprolol Tartrate) 100 Mg Tab 100 MG PO BID for Blood Pressure Management for 30 Days, #60 TAB 0 Refills [place]-3 Fatty Acids (Fish Oil 1000 mg) 300 Mg-1,000 Mg Cap 1000 MG PO DAILY for Nutritional Supplement Pantoprazole (Protonix) 40 Mg Tab 40 MG PO BID for Reflux, #30 TAB 0 Refills Potassium Chloride ER (Potassium Chloride ER) 10 Meq Cap 20 MEQ PO DAILY for Electrolyte Replacement, #60 CAP 0 Refills Rosuvastatin (Rosuvastatin) 10 Mg Tab 10 MG PO HS for Cholesterol Management for 30 Days, #30 TAB 0 Refills Discontinued Medications: Aspirin (Aspirin) 325 Mg Tab 325 MG PO DAILY for Blood Clot Prevention, #30 TAB 0 Refills Losartan (Losartan) 50 Mg Tab 50 MG PO DAILY for Blood Pressure Management for 30 Days, #30 TAB 0 Refills Prednisone (Prednisone) 10 Mg Tab 15 MG PO DAILY, TAB 0 Refills Hector Ramírez Jan 15, 2017 13:24
== END 2017-01-15 15:10 | disposition home health service (06) | DRG 281 ==
LOC: NEPC 18:10 → NEDA 21:01 → OBSVTOIN 22:00 → N05B 23:04
PROVIDERS: ADMIT Family Medicine; ATTEND Family Medicine
PROC: B2111ZZ Fluoroscopy of Multiple Coronary Arteries using Low Osmolar Contrast (ICD-10-PCS; 2017-01-14)
PROC: B2151ZZ Fluoroscopy of Left Heart using Low Osmolar Contrast (ICD-10-PCS; 2017-01-14)
PROC: B41F1ZZ Fluoroscopy of Right Lower Extremity Arteries using Low Osmolar Contrast (ICD-10-PCS; 2017-01-14)
PROC: B2181ZZ Fluoroscopy of Left Internal Mammary Bypass Graft using Low Osmolar Contrast (ICD-10-PCS; 2017-01-14)
PROC: 4A023N7 Measurement of Cardiac Sampling and Pressure, Left Heart, Percutaneous Approach (ICD-10-PCS; principal; 2017-01-14 09:00)
DX: I21.4 Non-ST elevation (NSTEMI) myocardial infarction (principal); R78.81 Bacteremia; I42.9 Cardiomyopathy, unspecified; E27.40 Unspecified adrenocortical insufficiency; G54.0 Brachial plexus disorders; I11.0 Hypertensive heart disease with heart failure; I48.91 Unspecified atrial fibrillation; I50.22 Chronic systolic (congestive) heart failure; K92.1 Melena; B95.4 Other streptococcus as the cause of diseases classified elsewhere; E03.9 Hypothyroidism, unspecified; E78.5 Hyperlipidemia, unspecified; E87.6 Hypokalemia; I35.0 Nonrheumatic aortic (valve) stenosis; M19.90 Unspecified osteoarthritis, unspecified site; I25.118 Atherosclerotic heart disease of native coronary artery with other forms of angina pectoris; M79.7 Fibromyalgia; D64.9 Anemia, unspecified; Z91.041 Radiographic dye allergy status; Z95.0 Presence of cardiac pacemaker; Z95.3 Presence of xenogenic heart valve; Z96.651 Presence of right artificial knee joint; Z96.611 Presence of right artificial shoulder joint; Z96.612 Presence of left artificial shoulder joint
CPT/HCPCS: 70450; 71010; 76937; 80048; 80053; 82140; 82272; 82550; 82948; 83605; 83735; 83880; 84439; 84443; 84484; 85014; 85018; 85025; 85610; 85652; 85730; 87040; 93005; 93458; 99152; 99153; C1760; C1769; C1893; C9113; G0269; J0696; J1200; J1644; J1720; J1940; J2250; J2930; J3370; J3480; J7030; J7050; J7512; Q9967

== ENCOUNTER 2017-02-28 11:28 | Emergency (ER) | payer MEDICARE, OTHER ==
[~2017-02-28] VITALS: Ht 149.9 cm; Wt 74.5 kg
[~2017-02-28 11:28] MED LIST changes: +AMLO5 PO; -ASPI325T PO; -COMMODE 3-IN-11 MIS; +COZA50TA PO; +FISH100020 PO; -FISHCAP4 PO; +GETGO ROLLING W1 MI1; -LIDO1PAD52 TOPICAL; -LOSA50TA PO; -OXYC1CAP PO; -TRAM50TA PO; +TYLE325T PO
[2017-02-28 11:35] VITALS: BP 114/71; PULSE 81; RESP 14; TEMP 98; O2SAT 94
[2017-02-28 11:52] VITALS: PULSE 70; RESP 15; O2SAT 95
[2017-02-28 11:58] VITALS: BP 114/61; PULSE 70; RESP 15; O2SAT 94
--- NOTE | 2017-02-28 12:05 | PD ---
HPI Chief Complaint: Back/ Neck Pain or Injury Time Seen by Provider: 11:47 Travel History International Travel<30 days: No Contact w/Intl Traveler<30days: No Traveled to known affect area: No History of Present Illness HPI 86-year-old female presents to the emergency department, accompanied by her daughter, with complaint of bilateral neck pain and posterior headache for the past 3-4 days. Denies injury. The daughter is also concerned that she had a heart rate of 125 this morning; daughter states patient had no complaints at that time. She called the attending physician and was told to come to the emergency department for evaluation. The patient states that she is just "not been feeling well." Denies chest pain, shortness of breath, abdominal pain, nausea, vomiting. Denies lightheadedness, dizziness, paresthesias. Denies change in urine or stool. Denies recent illness to include fevers, nasal congestion, sore throat, cough. Denies change in mentation, slurred speech, confusion, disorientation that is new from baseline; denies focal deficits or weakness. Patient rates the pain 6/10. The daughter has given her Tylenol and Flexeril with minimal symptom relief. Neck pain is aggravated with palpation and movement. Patient was here in December with sepsis and 2 weeks later had heart problems and had a cardiac catheterization. Dr. Martinez is her general lithographic worker. Her primary care provider is Dr. Munoz and has an appointment on Friday. She has an appointment with infectious disease, Dr. Mally Selby, on Friday. She is on Keflex BID. History of CHF, pacemaker, hypertension. Has no other medical complaints. No other modifying factors or associated signs and symptoms. PFSH Past Medical History Hx Anticoagulant Therapy: No Arthritis: Yes Autoimmune Disease: No Blood Disorders: No Cardiac Catheterization: Yes Cardiovascular Problems: Yes (CHF ) High Cholesterol: Yes Chemotherapy: No Congestive Heart Failure: Yes Cerebrovascular Accident: No Diabetes: No Diminished Hearing: No Endocrine: Yes Gastrointestinal Disorders: No Genitourinary: No Hypertension: Yes Immune Disorder: No Musculoskeletal: Yes Neurologic: No Reproductive: No Respiratory: Yes (on 3L home for sleep) Thyroid Disease: Yes Tetanus Vaccination: < 5 Years Influenza Vaccination: Yes ?: Not Past Surgical History Appendectomy: Yes Hysterectomy: No Other Surgery: Yes Social History Alcohol Use: Yes (occaisonal) Tobacco Use: No Substance Use: No Allergies-Medications (Allergen,Severity, Reaction): Coded Allergies: iodine (Verified Allergy, Intermediate, EYES SWELLING, 02/28/17) Iodinated Contrast- Oral and IV Dye (Verified Adverse Reaction, Intermediate, EYES SWELLING, 02/28/17) potassium iodide (Verified Adverse Reaction, Intermediate, EYES SWELLING, 02/28/17) povidone-iodine (Verified Adverse Reaction, Intermediate, EYES SWELLING, 02/28/17) sodium iodide (Verified Adverse Reaction, Intermediate, EYES SWELLING, ) sodium iodide (Verified Adverse Reaction, Intermediate, EYES SWELLING, ) Uncoded Allergies: IVP DYE (Adverse Reaction, Intermediate, EYES SWELLING, 02/28/17) Reported Meds & Prescriptions Reported Meds & Active Scripts Active Prednisone 5 Mg Tab 12.5 Mg PO DAILY Norvasc (Amlodipine Besylate) 5 Mg Tab 2.5 Mg PO DAILY Cozaar (Losartan Potassium) 50 Mg Tab 100 Mg PO DAILY Ceftriaxone Inj (Ceftriaxone Sodium/Dextrose) 2 Gm/50 Ml Bagp 2 Gm IV Q24H 21 Days Ball Infusion Walker Rolling/GetGo (Device) 1 Mis Mis Ea .ROUTE DIRECTED Potassium Chloride ER (Potassium Chloride) 10 Meq Cap 20 Meq PO DAILY Furosemide 20 Mg Tab 20 Mg PO DAILY 30 Days Rosuvastatin (Rosuvastatin Calcium) 10 Mg Tab 10 Mg PO HS 30 Days Levothyroxine (Levothyroxine Sodium) 50 Mcg Tab 50 Mcg PO DAILY 30 Days Metoprolol Tartrate 100 Mg Tab 100 Mg PO BID 30 Days Reported Tylenol (Acetaminophen) 325 Mg Tab 325 Mg PO DAILY Fish Oil 1000 mg ([place]-3 Fatty Acids) 300 Mg-1,000 Mg Cap 1,000 Mg PO DAILY Protonix (Pantoprazole Sodium) 40 Mg Tab 40 Mg PO BID Amitriptyline (Amitriptyline HCl) 10 Mg Tab 20 Mg PO HS Vitamin D-1000 (Cholecalciferol) 1,000 Unit Tab 1,000 Units PO DAILY Review of Systems Except as stated in HPI: all other systems reviewed are Neg Physical Exam Narrative GENERAL: Well-nourished, well-developed elderly, female patient, in no acute distress; afebrile, nontoxic-appearing SKIN: Warm and dry. HEAD: Atraumatic. Normocephalic. No facial droop noted. Tongue midline. EYES: Pupils equal and round at 4 mm with brisk reaction. No scleral icterus. No injection or drainage. PERRLA. EOMI. ENT: Mucosa pink and moist. No erythema or exudates. No uvular edema. No uvular , palatal, or tonsillar deviation. Airway patent. EARS: Bilateral pinnae and external canals appear within normal limits. Bilateral tympanic membranes without erythema, dullness or perforation. NECK: No midline tenderness on palpation of the cervical spine. Active rotation greater than 45 left and right. Reproducible tenderness to bilateral musculature of the neck. Trachea midline. No lymphadenopathy. CARDIOVASCULAR: Regular rate and rhythm. No murmur appreciated. RESPIRATORY: No accessory muscle use. Clear to auscultation. Breath sounds equal bilaterally. GASTROINTESTINAL: Abdomen soft, non-tender, nondistended. Hepatic and splenic margins not palpable. Bowel sounds are active 4 quadrants. MUSCULOSKELETAL: No obvious deformities. No clubbing. No cyanosis. No edema. BACK: No CVA tenderness. No midline tenderness on palpation of the thoracic or lumbar spine. NEUROLOGICAL: Awake and alert. Oriented 3. No obvious cranial nerve deficits. Motor grossly within normal limits. Normal speech. No ataxia. No mid -line drift. No upper or lower extremity drift. Moves all extremities. 5/5 strength to all extremities. PSYCHIATRIC: Appropriate mood and affect; insight and judgment normal. Data Data Last Documented VS Vital Signs Date Time Temp Pulse Resp B/P (MAP) Pulse Ox O2 Delivery O2 Flow Rate FiO2 02/28/17 16:48 70 114/61 (78) 115/53 (73) 02/28/17 16:48 14 99 Nasal Cannula 2.00 02/28/17 11:35 98.0 Orders Orders Basic Metabolic Panel (Bmp) (02/28/17 12:05) Complete Blood Count With Diff (02/28/17 12:05) Magnesium (Mg) (02/28/17 12:05) Prothrombin Time / Inr (Pt) (02/28/17 12:05) Act Partial Throm Time (Ptt) (02/28/17 12:05) Troponin I (02/28/17 12:05) Ecg Monitoring (02/28/17 12:05) Iv Access Insert/Monitor (02/28/17 12:05) Oximetry (02/28/17 12:05) Sodium Chloride 0.9% Flush (Ns Flush) (02/28/17 12:15) Electrocardiogram (02/28/17 12:05) Ckmb (Isoenzyme) Profile (02/28/17 12:05) Oxygen Administration (02/28/17 12:05) Chest, Single Ap (02/28/17 12:05) Ct Brain W/O Iv Contrast(Rout) (02/28/17 ) Ct Cerv Spine W/O Contrast (02/28/17 ) Urinalysis - C+S If Indicated (02/28/17 13:31) Cath For Specimen (02/28/17 13:32) Lactic Acid Sepsis Protocol (02/28/17 13:34) Blood Culture (02/28/17 13:34) Sodium Chlorid 0.9% 500 Ml Inj (Ns 500 M (02/28/17 13:45) Vascular Access Team Consult/P PRN (02/28/17 14:48) Vascular Poc Ultrasound (02/28/17 ) Morphine Inj (Morphine Inj) (02/28/17 16:15) Ondansetron Inj (Zofran Inj) (02/28/17 16:15) Ed Discharge Order (02/28/17 17:27) Labs Laboratory Tests Test 02/28/17 12:00 02/28/17 14:45 02/28/17 15:10 White Blood Count 14.7 TH/MM3 Red Blood Count 3.60 MIL/MM3 Hemoglobin 9.8 GM/DL Hematocrit 30.8 % Mean Corpuscular Volume 85.7 FL Mean Corpuscular Hemoglobin 27.3 PG Mean Corpuscular Hemoglobin Concent 31.9 % Red Cell Distribution Width 15.1 % Platelet Count 258 TH/MM3 Mean Platelet Volume 7.7 FL Neutrophils (%) (Auto) 73.1 % Lymphocytes (%) (Auto) 15.4 % Monocytes (%) (Auto) 8.6 % Eosinophils (%) (Auto) 1.9 % Basophils (%) (Auto) 1.0 % Neutrophils # (Auto) 10.8 TH/MM3 Lymphocytes # (Auto) 2.3 TH/MM3 Monocytes # (Auto) 1.3 TH/MM3 Eosinophils # (Auto) 0.3 TH/MM3 Basophils # (Auto) 0.2 TH/MM3 CBC Comment AUTO DIFF Differential Comment AUTO DIFF CONFIRMED Platelet Estimate NORMAL Platelet Morphology Comment NORMAL Ovalocytes 1+ Prothrombin Time 11.2 SEC Prothromb Time International Ratio 1.1 RATIO Activated Partial Thromboplast Time 26.4 SEC Blood Urea Nitrogen 11 MG/DL Creatinine 1.14 MG/DL Random Glucose 120 MG/DL Calcium Level 8.6 MG/DL Magnesium Level 2.0 MG/DL Sodium Level 134 MEQ/L Potassium Level 3.9 MEQ/L Chloride Level 99 MEQ/L Carbon Dioxide Level 27.9 MEQ/L Anion Gap 7 MEQ/L Estimat Glomerular Filtration Rate 45 ML/MIN Total Creatine Kinase 41 U/L Troponin I 0.14 NG/ML Urine Color LIGHT-YELLOW Urine Turbidity CLEAR Urine pH 6.5 Urine Specific [place] 1.006 Urine Protein NEG mg/dL Urine Glucose (UA) NEG mg/dL Urine Ketones NEG mg/dL Urine Occult Blood NEG Urine Nitrite NEG Urine Bilirubin NEG Urine Urobilinogen LESS THAN 2.0 MG/DL Urine Leukocyte Esterase NEG Urine WBC 3 /hpf Urine Squamous Epithelial Cells <1 /hpf Urine Hyaline Casts 1 /lpf Urine Granular Casts 3 /lpf Microscopic Urinalysis Comment CULT NOT INDICATED Lactic Acid Level 1.1 mmol/L MDM Medical Decision Making Medical Screen Exam Complete: Yes Emergency Medical Condition: Yes Medical Record Reviewed: Yes Differential Diagnosis Stiff neck, neck pain, headache, medical clearance Narrative Course 86-year-old female with complaint of neck pain and headache 3-4 days. Her daughter is at the bedside and is concerned of her heart because she got a heart rate of 125bpm this morning. The patient had no complaints at that time. The daughter is requesting for a troponin to be drawn. Patient denies chest pain or shortness of breath. I spoke with my attending physician, Dr. Loya, and she agrees with my plan of care. CBC, BMP, coags, magnesium , troponin, chest x-ray, EKG, CT head, CT cervical spine ordered. 1327: WBC 14.7. Hemoglobin 9.8 and is consistent with past levels. Coags unremarkable. Sodium 134, creatinine 1.14, GFR 45. Troponin 0.14. Urinalysis , lactic acid, blood cultures, 500ml NS bolus ordered. 1403: Chest x-ray, head CT, cervical spine CT concludes: Chest X-Ray 02/28/17 1205 Signed Impressions: Service Date/Time: Tuesday, February 28, 2017 12:59 - CONCLUSION: 1. No acute abnormality or significant interval change. Albert Lewis MD Head CT 02/28/17 0000 Signed Impressions: Service Date/Time: Tuesday, February 28, 2017 12:51 - CONCLUSION: Stable CT scan of the brain compared to the prior exam. No change in the bilateral cortical atrophy and chronic white matter changes. Elvin Christine MD Cervical Spine CT 02/28/17 0000 Signed Impressions: Service Date/Time: Tuesday, February 28, 2017 12:51 - CONCLUSION: 1. No significant interval change from 12/23/2016. 2. 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 3. Please see above for detailed description of each level. Albert Lewis MD 1556: Lactic acid 1.1. 1603: Urinalysis without signs of infection. 1616: Call paced to [facility] for admission. Morphine and zofran ordered. 1655: I spoke with [facility] Aburto and he would like cardiology called in regards to the elevated troponin and if they would like the patient admitted and he will accept the patient for admission, otherwise patient can follow up outpatient. 1720: I spoke woth Dr. Mendiola, general lithographic worker and discussed the patient's visit and he agrees the patient is stable for outpatient follow-up. I spoke with the patient's daughter and she is agrees for discharge. She has a follow-up appointment with infectious disease on Friday. She has an appointment on Friday with her primary care provider. The daughter states she will make a follow-up appointment with the general lithographic worker. Instructed to continue antibiotics as prescribed. Instructed patient to follow up with primary care provider. Patient verbalizes understanding and agreement with treatment plan. Patient is medically cleared and stable for discharge. Discussed reasons to return to the emergency department. Patient agrees with treatment plan. The patients vital signs are stable and the patient is stable for outpatient follow- up and treatment. Patient discharged home, stable and in no acute distress. Diagnosis Primary Impression: Neck pain Additional Impressions: Elevated troponin Headache Qualified Codes: R51 - Headache Elevated WBC count Qualified Codes: D72.829 - Elevated white blood cell count, unspecified Referrals: Change Management Director Infectious Disease Specialist Primary Care Physician Patient Instructions: Acute Headache (ED), Acute Neck Pain (ED), General Instructions Additional Instructions: Continue antibiotics as prescribed Tylenol or prescribed pain medication as directed and as needed for pain Heating pad to affected area to reduce pain Follow-up with general lithographic worker Follow-up with primary care provider Follow-up with infectious disease Med/Other Pt SpecificInfo: No Change to Meds, No Meds Exist/No RX given Disposition: 01 DISCHARGE HOME Condition: Stable Sravani Kirby Feb 28, 2017 12:05
[2017-02-28] MEDS ORDERED: SODIUM CHLORIDE 0.9% FLUSH 10 ML FLUSH IVF PRN (12:15)
[2017-02-28 12:36] LABS: AUTOMATED NEUTROPHIL # 10.8 TH/MM3 (1.8-7.7); BASOPHIL # 0.2 TH/MM3 (0-0.2); EOSINOPHIL # 0.3 TH/MM3 (0-0.4); EOSINOPHIL % 1.9 % (0.0-4.0); HEMATOCRIT 30.8 % (35.0-46.0); HEMOGLOBIN 9.8 GM/DL (11.6-15.3); LYMPH % 15.4 % (9.0-44.0); LYMPHOCYTE # 2.3 TH/MM3 (1.0-4.8); MEAN CELL VOLUME 85.7 FL (80.0-100.0); MEAN CORPUSCULAR HEMOGLOBIN 27.3 PG (27.0-34.0); MEAN CORPUSCULAR HGB CONC 31.9 % (32.0-36.0); MEAN PLATELET VOLUME 7.7 FL (7.0-11.0); MONO % 8.6 % (0.0-8.0); MONOCYTE # 1.3 TH/MM3 (0-0.9); NEUT % 73.1 % (16.0-70.0); PLATELET COUNT 258 TH/MM3 (150-450); RED CELL DISTRIBUTION WIDTH 15.1 % (11.6-17.2); WHITE BLOOD COUNT 14.7 TH/MM3 (4.0-11.0)
[2017-02-28 12:46] LABS: INTERNATIONAL NORMALIZED RATIO 1.1 RATIO; PROTHROMBIN TIME - PATIENT 11.2 SEC (9.8-11.6)
[2017-02-28 12:51] LABS: BICARBONATE 27.9 MEQ/L (21.0-32.0); CALCIUM 8.6 MG/DL (8.5-10.1); CREATININE 1.14 MG/DL (0.50-1.00)
[2017-02-28 12:56] LABS: TROPONIN I 0.14 NG/ML (0.02-0.05)
[2017-02-28 13:27] LABS: OVALOCYTES 1+ (NORMAL)
--- NOTE | 2017-02-28 13:27 | RADRPT ---
EXAM DATE/TIME: 02/28/2017 12:51 [facility] COMPARISON: CT BRAIN W/O CONTRAST, January 12, 2017, 17:12. INDICATIONS : Neck, head pain. RADIATION DOSE: 34.99 CTDIvol (mGy) MEDICAL HISTORY : Congestive hearrt failure. Hypertension. SURGICAL HISTORY : Pacemaker. Bilateral shoulders ENCOUNTER: Initial ACUITY: 3 days PAIN SCALE: 8/10 LOCATION: Bilateral cranial TECHNIQUE: Multiple contiguous axial images were obtained of the head. Using automated exposure control and adj ustment of the mA and/or kV according to patient size, radiation dose was kept as low as reasonably a chievable to obtain optimal diagnostic quality images. DICOM format image data is available electro nically for review and comparison. FINDINGS: CEREBRUM: The ventricles are normal for age. There is stable bilateral cortical atrophy and chronic white matte r changes. No evidence of midline shift, mass lesion, hemorrhage or acute infarction. No extra-axial fluid collections are seen. POSTERIOR FOSSA: The cerebellum and brainstem are intact. The 4th ventricle is midline. The cerebellopontine angle i s unremarkable. EXTRACRANIAL: The visualized portion of the orbits is intact. SKULL: The calvaria is intact. No evidence of skull fracture. No significant change compared to the prior study. CONCLUSION: Stable CT scan of the brain compared to the prior exam. No change in the bilateral cortical atrophy a nd chronic white matter changes. Elvin Christine MD on February 28, 2017 at 13:24 Board Certified Radiologist. This report was verified electronically.
--- NOTE | 2017-02-28 13:36 | RADRPT ---
EXAM DATE/TIME: 02/28/2017 12:51 [facility] COMPARISON: CT CERVICAL SPINE W/O CONTRAST, December 23, 2016, 20:42. INDICATIONS : Neck and head pain. RADIATION DOSE: 20.96 CTDIvol (mGy) MEDICAL HISTORY : Congestive hearrt failure. Hypertension. SURGICAL HISTORY : Bilateral shoulders. ENCOUNTER: Initial ACUITY: 3 days PAIN SCALE: 8/10 LOCATION: Bilateral neck posterior TECHNIQUE: Volumetric scanning of the cervical spine was performed. Multiplanar reconstructions in the sagittal, coronal and oblique axial planes were performed. Using automated exposure control and adjustment o f the mA and/or kV according to patient size, radiation dose was kept as low as reasonably achievable to obtain optimal diagnostic quality images. DICOM format image data is available electronically f or review and comparison. FINDINGS: VERTEBRAE: Vertebral body heights are maintained. No acute bony fracture or focal bony destruction. ALIGNMENT: Sagittal alignment is stable with subtle less than 2 mm retrolisthesis of C5 on C6. C2-C3: Moderate severe left and mild to moderate right facet arthropathy. No significant disc bulge or centr al canal stenosis. C3-C4: Mild uncovertebral osteophytes, moderate to severe left and mild right facet arthropathy. Central can al is patent. Mild right and moderate left bony neural foraminal narrowing. C4-C5: Disc space narrowing with mild right and moderate to severe left facet arthropathy. Moderate left gt ral foraminal stenosis. C5-C6: Disc space narrowing with posterior disc osteophytes, moderate severe left and mild right facet arthr opathy. Associated mild effacement of the anterior thecal sac and left lateral recess. Moderate right and moderate to severe left bony neural foraminal narrowing secondary to osteophytes. C6-C7: Disc space narrowing with posterior disc osteophyte complex. Effacement of the anterior thecal sac. S evere left neural foraminal stenosis. Mild right neural foraminal stenosis. C7-T1: The bony spinal canal is normal in size. No evidence of disc bulge or herniation. The neural forami na are bilaterally patent. CONCLUSION: 1. No significant interval change from 12/23/2016. 2. 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 3. Please see above for detailed description of each level. Albert Lewis MD on February 28, 2017 at 13:25 Board Certified Radiologist. This report was verified electronically.
--- NOTE | 2017-02-28 13:44 | RADRPT ---
EXAM DATE/TIME: 02/28/2017 12:59 [facility] COMPARISON: CHEST SINGLE AP, January 11, 2017, 18:30. INDICATIONS : Chest pain MEDICAL HISTORY : Cardiovascular disease. Hypertension SURGICAL HISTORY : CABG. Pacemaker. Bilateral shoulder replacements ENCOUNTER: Initial ACUITY: 1 day PAIN SCORE: 2/10 LOCATION: Bilateral chest FINDINGS: Post surgical features of prior median sternotomy and cardiac surgery. Dual-lead pacemaker in place. No significant focal pleural or parenchymal opacities. Cardiomediastinal contours are stable. There a re bilateral shoulder arthroplasties in place. CONCLUSION: 1. No acute abnormality or significant interval change. Albert Lewis MD on February 28, 2017 at 13:35 Board Certified Radiologist. This report was verified electronically.
[2017-02-28] MEDS ORDERED: SODIUM CHLORID 0.9% 500 ML INJ 500 ML IV ONE (13:45)
--- NOTE | 2017-02-28 15:06 | EKG ---
Date Performed: 02/28/2017 Time Performed: 11:56:09 PTAGE: 86 years EKG: Sinus rhythm LEFT AXIS DEVIATION NONSPECIFIC INTRAVENTRICULAR CONDUCTION DELAY ABNORMAL ECG NO PREVIOUS TRACING DOCTOR: Reyes Mendiola Interpretating Date/Time 02/28/2017 15:05:47
[2017-02-28 15:46] LABS: BILIRUBIN, URINE NEG (NEG); BLOOD, URINE NEG (NEG); GLUCOSE,URINE NEG (NEG); HYALINE CAST, URINE 1 /lpf (RARE); KETONE, URINE NEG (NEG); NITRITE,URINE NEG (NEG); PH, URINE 6.5 (5.0-8.5); SQUAMOUS EPITHELIAL CELL URINE <1 /hpf (0-5); URINE COLOR LIGHT-YELLOW (YELLW/STRAW); URINE LEUKOCYTE ESTERASE NEG (NEG)
[2017-02-28] MEDS ORDERED: MORPHINE SULFATE 4 MG/ML INJ IV PUSH ONE (16:15)
[2017-02-28] MEDS ORDERED: ONDANSETRON HCL 4 MG/2 ML VIAL IV PUSH ONE (16:15)
[2017-02-28 16:48] VITALS: BP_SYST 114; BP_SYST 115; BP_DIAS 53; BP_DIAS 61; PULSE 70; PULSE 80; PULSE 82; RESP 14; O2SAT 99
[2017-02-28 17:39] VITALS: BP 118/56; PULSE 78; RESP 16; O2SAT 98
== END 2017-02-28 17:52 | disposition home or self-care (01) ==
LOC: NEPC 11:28
DX: M54.2 Cervicalgia (principal); R79.89 Other specified abnormal findings of blood chemistry; R51 Headache; D72.829 Elevated white blood cell count, unspecified; I11.0 Hypertensive heart disease with heart failure; I50.9 Heart failure, unspecified; M19.90 Unspecified osteoarthritis, unspecified site; E78.00 Pure hypercholesterolemia, unspecified; E07.9 Disorder of thyroid, unspecified
CPT/HCPCS: 70450; 71010; 72125; 76937; 80048; 81001; 82550; 83605; 83735; 84484; 85025; 85610; 85730; 87040; 93005; 96361; 96374; 96375; 99285; J2270; J2405; J7040